=== PATIENT | male | born 1945 | race Caucasian/White ===

== ENCOUNTER 2020-11-05 08:48 | Outpatient (REF) | payer MEDICARE, SELFPAY ==
[2020-11-05 11:12] LABS: Microalbum/Creatinine Ratio Ur 5.6 ug/mg cr
[2020-11-05 11:17] LABS: Alanine Aminotransferase 22 U/L (0-40); Albumin Level 4.2 g/dL (3.5-5.0); Alkaline Phosphatase 120 U/L (39-117); Anion Gap 15 (12-20); Aspartate Amino Transferase 16 U/L (5-37); Bilirubin Total 0.9 mg/dL (0.0-1.0); Blood Urea Nitrogen 29 mg/dL (9-16); Calcium 9.4 mg/dL (8.4-10.2); Carbon Dioxide 28 mmol/L (22-29); Chloride 105 mmol/L (96-108); Cholesterol 132 mg/dL; Estimated Glomerular Filt Rate 46; Glucose Fasting 162 mg/dL (60-99); HDL Cholesterol 30 mg/dL; LDL Cholesterol Calculated 82 mg/dl; Potassium 4.9 mmol/l (3.3-5.1); Sodium 143 mmol/L (135-145); Total Protein 7.1 g/dL (6.5-8.0); Triglycerides 103 mg/dL
[2020-11-05 11:18] LABS: Estimated Average Glucose 171 mg/dL; Hemoglobin A1c % 7.6 %
[2020-11-05 11:40] LABS: TSH reflex Free T4 2.48 mIU/mL (0.32-4.0)
== END 2020-11-05 08:49 | disposition home or self-care (01) ==
LOC: HO.WFDLDS 08:48
PROVIDERS: Visit Provider Family Medicine
DX: Z00.00 Encounter for general adult medical examination without abnormal findings (principal); E11.9 Type 2 diabetes mellitus without complications; I10 Essential (primary) hypertension
CPT/HCPCS: 36415; 80053; 80061; 82043; 83036; 84443

== ENCOUNTER → 2020-12-18 08:06 | Outpatient (BNVA) | payer MEDICARE, SELFPAY | PROVIDERS: PCP Family Medicine; Visit Provider Physician Assistant | DX: Z12.11 Encounter for screening for malignant neoplasm of colon (principal); Z79.01 Long term (current) use of anticoagulants; Z86.010 Personal history of colon polyps | CPT/HCPCS: 99212 ==

== ENCOUNTER 2021-02-03 09:07 | Outpatient (REF) | payer MEDICARE, SELFPAY ==
[2021-02-03 11:50] LABS: Estimated Average Glucose 163 mg/dL; Hemoglobin A1c % 7.3 %
[2021-02-03 12:24] LABS: Alanine Aminotransferase 23 U/L (0-40); Albumin Level 4.2 g/dL (3.5-5.0); Alkaline Phosphatase 127 U/L (39-117); Anion Gap 14 (12-20); Aspartate Amino Transferase 15 U/L (5-37); Blood Urea Nitrogen 25 mg/dL (9-16); Calcium 9.1 mg/dL (8.4-10.2); Carbon Dioxide 27 mmol/L (22-29); Chloride 105 mmol/L (96-108); Cholesterol 124 mg/dL; Estimated Glomerular Filt Rate 57; Glucose Fasting 131 mg/dL (60-99); HDL Cholesterol 34 mg/dL; LDL Cholesterol Calculated 75 mg/dl; Potassium 4.9 mmol/L (3.3-5.1); Sodium 141 mmol/L (135-145); Total Protein 6.9 g/dL (6.5-8.0); Triglycerides 78 mg/dL
== END 2021-02-03 09:08 | disposition home or self-care (01) ==
LOC: HO.WFDLDS 09:07
PROVIDERS: Visit Provider Family Medicine
DX: Z00.00 Encounter for general adult medical examination without abnormal findings (principal); E11.9 Type 2 diabetes mellitus without complications; E78.5 Hyperlipidemia, unspecified; Z12.5 Encounter for screening for malignant neoplasm of prostate
CPT/HCPCS: 36415; 80053; 80061; 83036; 84153

== ENCOUNTER 2021-04-01 13:36 | Outpatient (REF) | payer MEDICARE, SELFPAY ==
--- NOTE | ~2021-04-01 | XR_ITS ---
EXAMINATION: XR CHEST CLINICAL INFORMATION: Atrial fibrillation COMPARISON: None TECHNIQUE: 2 views of the chest were obtained. FINDINGS: The cardiac silhouette is enlarged. Hilar and mediastinal contours are unremarkable. The lungs are clear. No pleural effusion or pneumothorax. There are degenerative changes of the spine. XR/XR chest 2V IMPRESSION: Enlarged cardiac silhouette. No evidence for acute disease in the chest.
[2021-04-01 16:11] LABS: Anion Gap 15 (12-20); Blood Urea Nitrogen 31 mg/dL (9-16); Calcium 9.2 mg/dL (8.4-10.2); Carbon Dioxide 25 mmol/L (22-29); Chloride 104 mmol/L (96-108); Estimated Glomerular Filt Rate 43; Glucose Random 153 mg/dL (60-115); Potassium 4.7 mmol/L (3.3-5.1); Sodium 139 mmol/L (135-145)
[2021-04-01 16:12] LABS: B Type Natriuretic Peptide 120 pg/mL (<100)
== END 2021-04-01 13:37 | disposition home or self-care (01) ==
LOC: HO.XRAY 13:36
PROVIDERS: PCP Family Medicine; Visit Provider Internal Medicine Cardiovascular Disease
DX: I48.91 Unspecified atrial fibrillation (principal); I50.30 Unspecified diastolic (congestive) heart failure; I25.10 Atherosclerotic heart disease of native coronary artery without angina pectoris; Z79.899 Other long term (current) drug therapy
CPT/HCPCS: 36415; 71046; 80048; 83735; 83880; 93005; Q3014

== ENCOUNTER → 2021-04-22 08:12 | Outpatient (REF) | payer MEDICARE, SELFPAY ==
--- NOTE | 2021-04-22 08:16 | CA_ITS ---
Transthoracic Echocardiogram Patient (Last, First, Middle): Km Estevez, Gender: Male Date of : 1945 Age: 75 Procedure Date: 04/22/2021 Procedure Type: Transthoracic Echocardiogram Location: OP Height: 160.02 cm Weight: 88.45 kg BSA: 1.91 m2 Heart Rate: bpm BP: 125 / 80 mmHg Rails Developer: KANDICE Referring MD: Slim Snow MD Symptoms: I48.91 - Unspecified atrial fibrillation Study Quality: Fair ECG Rhythm: Atrial Fibrillation Conclusions: - The left ventricular systolic function is low normal. The visually estimated ejection fraction is between 50-55%. - Mildly increased right ventricular cavity size. - There is mild calcification of the aortic valve. - There is mild mitral valve regurgitation. - There is mild tricuspid valve regurgitation. Findings Left Ventricle Normal left ventricular cavity size. There is mildly increased left ventricular wall thickness. The left ventricular systolic function is low normal. The visually estimated ejection fraction is between 50-55%. Regional wall motion abnormalities can not be excluded due to suboptimal endocardial definition. Diastolic function is indeterminate on the basis of available data. Right Ventricle Mildly increased right ventricular cavity size. There is normal right ventricular systolic function. Atria Both atria are normal in size. Aortic Valve There is a normal trileaflet aortic valve. There is mild calcification of the aortic valve. There is no aortic valve stenosis. There is trace (trivial) aortic valve regurgitation. Mitral Valve The mitral valve appears normal. There is mild mitral valve regurgitation. There is no mitral valve stenosis. Pulmonic Valve The pulmonic valve was not well visualized. Tricuspid Valve Normal tricuspid valve structure. There is mild tricuspid valve regurgitation. The pulmonary artery systolic pressure is normal. Great Vessels The aortic annulus, sinuses of valsalva, and asc aorta are normal in size. Venous The inferior vena cava is normal in size and collapses greater than 50% with inspiration. Pericardium/Pleural There is no evidence of pericardial effusion. Prior Study Comparison No prior study available for comparison. Measurements 2D Linear Measurements IVSd: 1.15 0.6-0.9/0.6-1.0 cm LVIDd: 5.20 3.9-5.3/4.2-5.9 cm LVIDd Index: 2.72 2.4-3.2/2.2-3.1 cm/m2 LVIDs: 3.94 2.0-3.6 cm LVPWd: 1.08 0.7-1.1 cm Ao Root: 2.90 2.1-3.5 cm LA Diam: 4.10 2.7-3.8/3.0-4.0 cm LAIDs Index: 2.15 1.5-2.3 cm/m2 LV Mass: 280.35 67-162/88-224 g LV Mass Index: 146.78 43-95/49-115 g/m2 LVOT Diam: 2.10 3.0+(-)1.3 cm 2D Systolic Function EF 4C: 60.90 >55% EF 2C: 26.00 >55% EF BiP: 48.70 >55% Mitral Valve MV Pk E: 0.73 MV Decel Time: 239.00 E'Lateral: 12.30 E'Medial: 8.16 E/E' Med: 8.90 E/E' Lat: 5.90 PHT: 70.00 MVA PHT: 3.14 Decel Kings: 3.36 Aortic Valve AoV Pk Félix: 0.93 AoV Pk Grad: 3.00 AI Pk Félix: 2.76 AI Kings: 1.69 LVOT LVOT Pk Félix: 0.85 LVOT Mn Félix: 0.57 LVOT VTI: 0.15 LVOT Pk Grad: 3.00 LVOT Mn Grad: 2.00 LVOT Diam: 2.10 LVOT Area: 3.46 Diastolic Function MV Pk E: 0.73 E'Medial: 8.16 E/E' Med: 8.90 E' Laterial: 12.30 E/E' Lat: 5.90 Tricuspid Valve TR Pk Félix: 2.57 TR Pk Grad: 26.00 RA Press: 3.00 RVSP: 29.00 Great Vessels Aorta Ao Root-2D: 2.90 2.0-3.7 cm Ao Asc: 3.60 2.1-3.4 cm Updated in Other Vendor System with Status of Final Tk Zuniga MD electronically signed on 04/23/2021 12:38:14 PM with status of Final
== END ==
LOC: HO.CARD 08:12
PROVIDERS: Visit Provider Internal Medicine Cardiovascular Disease
DX: I48.91 Unspecified atrial fibrillation (principal)
CPT/HCPCS: 93306

== ENCOUNTER → 2021-04-29 10:46 | Outpatient (BNVA) | payer MEDICARE, SELFPAY | PROVIDERS: PCP Family Medicine; Referring Provider Family Medicine; Visit Provider Internal Medicine Cardiovascular Disease | DX: I48.91 Unspecified atrial fibrillation (principal); R06.02 Shortness of breath; Z79.899 Other long term (current) drug therapy | CPT/HCPCS: 99212 ==

== ENCOUNTER 2021-05-04 09:38 | Outpatient (REF) | payer MEDICARE, SELFPAY ==
[2021-05-04 10:58] LABS: Alanine Aminotransferase 17 U/L (0-40); Albumin Level 4.2 g/dL (3.5-5.0); Alkaline Phosphatase 129 U/L (39-117); Anion Gap 15 (12-20); Aspartate Amino Transferase 16 U/L (5-37); Blood Urea Nitrogen 29 mg/dL (9-16); Calcium 9.6 mg/dL (8.4-10.2); Carbon Dioxide 28 mmol/L (22-29); Chloride 103 mmol/L (96-108); Cholesterol 138 mg/dL; Estimated Glomerular Filt Rate 45; Glucose Fasting 187 mg/dL (60-99); HDL Cholesterol 32 mg/dL; LDL Cholesterol Calculated 79 mg/dl; Potassium 4.8 mmol/L (3.3-5.1); Sodium 141 mmol/L (135-145); Total Protein 7.2 g/dL (6.5-8.0); Triglycerides 136 mg/dL
[2021-05-04 11:41] LABS: Estimated Average Glucose 177 mg/dL; Hemoglobin A1c % 7.8 %
== END 2021-05-04 09:39 | disposition home or self-care (01) ==
LOC: HO.WFDLDS 09:38
PROVIDERS: Visit Provider Family Medicine
DX: Z00.00 Encounter for general adult medical examination without abnormal findings (principal); E78.5 Hyperlipidemia, unspecified; E11.9 Type 2 diabetes mellitus without complications
CPT/HCPCS: 36415; 80053; 80061; 83036

== ENCOUNTER 2021-05-06 11:47 | Day surgery (SDC) | payer MEDICARE, SELFPAY ==
--- NOTE | 2021-05-05 12:30 | P.CONAN_ITS ---
Documented by User: Nubia Richardsonney 05/05/21 12:37 HPI - Anesthesia Eval Consult details Narrative: 75yo M for Cardioversion Eliquis for afib/DVT PMFSH Active Problems Active Problems: All Active Problems (Updated 04/29/21 @ 11:36 by Slim Snow MD) SOB (shortness of breath) on exertion (Acute) Afib (Acute) History of colonic polyps (Acute) long-term current use of anticoagulant (Acute) Adult general medical exam (Acute) Screening for colon cancer (Acute) DVT (deep venous thrombosis) (Acute) Screening for prostate cancer (Acute) Hyperlipidemia (Acute) CAD (coronary artery disease) (Acute) Laboratory examination ordered as part of a routine general medical examination (Acute) Essential hypertension (Acute) Diabetes type 2, controlled (Acute) Past Medical History Medical History Afib CAD (coronary artery disease) Diabetes type 2, controlled DVT (deep venous thrombosis) Essential hypertension History of colonic polyps 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 Mother No problems noted. Surgical History Surgical History History of cardioversion Hx of colonoscopy Status post phlebectomy (~2018) Social History Social History Household Members: Spouse Alcohol intake: current Alcohol intake frequency: holidays/special occasions only Patient Tobacco Use Status: Never used Tobacco Use of substances other than those prescribed or required for medical reasons: No Have you been hit, kicked, punched, or otherwise hurt by someone within the past year? If so, by whom?: No Are you DNR?: No Advance Directives: No Advance Directives Information Provided: Yes Recently lost weight without trying: No Current occupational status: retired Meds Allergies Allergy/AdvReac Type Severity Reaction Status Date / Time No Known Allergies Allergy Verified 02/12/21 09:24 Exam Exam Date and Time: May 05, 2021 1230 Pertinent Lab Results Pertinent Lab Results: Laboratory Tests 05/04/21 09:45 Sodium 141 Potassium 4.8 Chloride 103 Carbon Dioxide 28 BUN 29 H Creatinine 1.51 H Narrative Narrative: EKG 03/2021 EKG shows atrial fibrillation with left axis deviation with low-voltage QRS throughout the EKG with nonspecific lateral ST T wave changes. ECHO 04/2021 Conclusions: - The left ventricular systolic function is low normal. The visually estimated ejection fraction is between 50-55%. - Mildly increased right ventricular cavity size. - There is mild calcification of the aortic valve. - There is mild mitral valve regurgitation. - There is mild tricuspid valve regurgitation. 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 Mother No problems noted. Surgical History Surgical History History of cardioversion Hx of colonoscopy Status post phlebectomy (~2018) Social History Social History Household Members: Spouse Alcohol intake: current Alcohol intake frequency: holidays/special occasions only Patient Tobacco Use Status: Never used Tobacco Use of substances other than those prescribed or required for medical reasons: No Have you been hit, kicked, punched, or otherwise hurt by someone within the past year? If so, by whom?: No Are you DNR?: No Advance Directives: No Advance Directives Information Provided: Yes Recently lost weight without trying: No Current occupational status: retired Meds Allergies Allergy/AdvReac Type Severity Reaction Status Date / Time No Known Allergies Allergy Verified 02/12/21 09:24 Exam Airway TM Dist: >3cm Neck ROM: Full Heart: Irregular Lungs: CTA
[2021-05-06 11:50] VITALS: BMI 38.2
[2021-05-06 12:01] VITALS: BP 131/77; PULSE 81; RESP 18; TEMP 36.1; O2SAT 96
[2021-05-06 12:03] LABS: Glucose, Whole Blood 195 mg/dL (60-115)
[2021-05-06] MEDS: Lactated Ringers 1,000 ML 50 ML IVCONT (12:21)
--- NOTE | 2021-05-06 13:31 | MHC.SHP ---
Pre-Procedural Eval Section A Date of Service: 05/06/21 The patient is an INPATIENT: No Changes since office visit: Yes Patient answered all questions; No Cold of Flu in the past 2 weeks, No New Medical Problems and No Changes in Medication The History & Physical has been completed within 30 days and I have reviewed it.: Yes Section B Chief Complaint: afib Allergies: Allergies Allergy/AdvReac Type Severity Reaction Status Date / Time No Known Allergies Allergy Verified 02/12/21 09:24 Plan I have reviewed the history and physical and performed a pertinent physical examination on my patient. No changes have occurred unless specified.
--- NOTE | 2021-05-06 13:32 | ECG_ITS ---
Test Reason : CARDIOVERSION Blood Pressure : / mmHG Vent. Rate : 043 BPM Atrial Rate : 043 BPM P-R Int : 272 ms QRS Dur : 088 ms QT Int : 476 ms P-R-T Axes : 032 -39 -65 degrees QTc Int : 402 ms Marked sinus bradycardia with 1st degree A-V block Left axis deviation Low voltage QRS Inferior infarct , age undetermined Cannot rule out Anteroseptal infarct , age undetermined Abnormal ECG No previous ECGs available Referred By: Slim Snow Electronically Signed By:SLIM SNOW MD
--- NOTE | 2021-05-06 13:43 | HO.CARDIVERS ---
Cardioversion Procedure Note Cardioversion Date of Procedure: 05/06/2021 Ordering Provider: Myself Performing Provider: Myself Indication for Procedure: Persistent symptomatic atrial fibrillation Pre-Op Diagnosis: Atrial fibrillation Post-Op Diagnosis: Sinus rhythm Performed with Transesophageal Echo: No History: See my office note Consent: Verbal and Written consent was obtained from the patient before starting after confirming oral anticoagulation. The patient was made aware of the risk of synchronized cardioversion including base, benefits, alternatives and 2nd opinion. Procedure: After consent obtained, cardioversion pads were attached in AP configuration and the patient was sedated by the anesthesia team. Once adequate sedation achieved, patient was delivered 200 joules of biphasic synchronized energy in AP configuration Complications: None Impression: Successful conversion to sinus rhythm Recommendations: 1. Twelve lead EKG 2. Continue uninterrupted oral anticoagulation 3. Discontinue Cardizem therapy 4. Holter monitor in 2 weeks followed by office visit.
[2021-05-06 13:50] VITALS: BP 103/63; PULSE 49; RESP 16; TEMP 36.7; O2SAT 99
[2021-05-06 14:05] VITALS: BP 115/74; PULSE 43; RESP 18; O2SAT 96
[2021-05-06 14:22] VITALS: BP 128/80; PULSE 43; RESP 18; TEMP 36.3; O2SAT 96
== END 2021-05-06 15:00 | disposition home or self-care (01) ==
PROVIDERS: PCP Family Medicine; Visit Provider Internal Medicine Cardiovascular Disease
PROC: 5A2204Z Restoration of Cardiac Rhythm, Single (ICD-10-PCS; principal; 2021-05-06 13:00)
DX: I48.19 Other persistent atrial fibrillation (principal); R06.02 Shortness of breath; R60.9 Edema, unspecified; E11.9 Type 2 diabetes mellitus without complications; I25.10 Atherosclerotic heart disease of native coronary artery without angina pectoris; I10 Essential (primary) hypertension; Z79.01 Long term (current) use of anticoagulants; Z79.84 Long term (current) use of oral hypoglycemic drugs; Z79.899 Other long term (current) drug therapy
CPT/HCPCS: 82947; 92960; 93005

== ENCOUNTER → 2021-05-11 08:30 | Outpatient (REF) | payer MEDICARE, SELFPAY ==
--- NOTE | ~2021-05-11 | NM_ITS ---
Myocardial perfusion study Indication: Shortness of breath, atrial fibrillation to evaluate for myocardial ischemia Technique: The patient was brought in for a Lexiscan perfusion study on 05/11/2021. Patient performed low-level exercise and was injected 0.4 mg of Lexiscan intravenously. Within a minute of injection, 35 mCi of sestamibi was given intravenously. Images were obtained using the SPECT gamma camera interlaced with the gating device. Images were obtained in supine position. Resting perfusion study was performed on 05/12/2021. Patient was administered 35 mCi of sestamibi intravenously at rest. Images were then obtained in supine position. Images obtained with and without CT attenuation. Total DLP 106 mGy-cm. Images were processed with the software and compared side to side in short axis, horizontal long axis and vertical long axis views. Findings: The stress perfusion study showed nonattenuated images show absent uptake in the apex of the LV myocardium. Attenuation corrected images absent uptake at the apex of the LV myocardium.. The gated study shows reduced LV systolic function with calculated LVEF of 33%. LV cavity is mildly to moderately dilated size. The gated study shows diffusely reduced wall thickening and contraction of all segments, . Resting study shows no change in perfusion pattern compared to stress perfusion study. Gating at rest reveals reduced wall motion with ejection fraction at 28%. The findings are consistent with no reversible ischemia, fixed apical defect consistent with transmural infarct. NM/NM monserrat perf SPECT rest & str Impression: 1. Myocardial perfusion imaging study shows apical transmural infarct with no ischemia 2. Gated LVEF is 33%. Correlate with echocardiogram 3. Transient ischemic dilatation not present but LV cavity is dilated EKG is nondiagnostic for ischemia
--- NOTE | 2021-05-11 08:35 | CA_ITS ---
Acquisition Time: 2021-05-11 08:52:20 Total Exercise Time: 00:02:00 Test Indications: SOB Medications: ELIQUIS CARVEDILOL TIMKY Protocol: LEXISCAN Max HR: 126 BPM 86% of Pred: 145 BPM Max BP: 120/078 mmHG Max Work Load: 1.0 METS Pharmacological stress test with Lexiscan injection, while sitting and kicking his legs, without anginal symptoms, with afib throughout test, with normotensive response to injection, with nondiagnostic EKG for ischemia. Nuclear images pending. Test reviewed with Dr Zuniga. Referred By: Slim Snow Overread By: JOSE M WEINER
== END ==
LOC: HO.CARD 08:30
PROVIDERS: Visit Provider Internal Medicine Cardiovascular Disease
DX: R06.02 Shortness of breath (principal)
CPT/HCPCS: 78452; 93017; A9500; J0280; J2785

== ENCOUNTER → 2021-05-18 13:47 | Outpatient (BNVA) | payer MEDICARE, SELFPAY | PROVIDERS: PCP Family Medicine; Visit Provider Nurse Practitioner Family | DX: Z13.89 Encounter for screening for other disorder (principal) | CPT/HCPCS: Q3014 ==

== ENCOUNTER 2021-06-10 11:45 | Day surgery (SDC) | payer MEDICARE, SELFPAY ==
[2021-06-03 15:58] VITALS: BMI 38.0
--- NOTE | 2021-06-09 10:54 | HO.ANESPROP2 ---
Documented by User: Nubia Cárdenas NP 06/09/21 10:58 HPI - Anesthesia Eval Consult details Narrative: 75yo M for Cardioversion Eliquis for afib/DVT s/p Cardioversion 04/2021 with [place] [facility] Active Problems Active Problems: All Active Problems (Updated 05/18/21 @ 14:09 by Meghan Orellana ANGULAR JS DEVELOPER-C) Laboratory examination ordered as part of a routine general medical examination (Acute) Screening for prostate cancer (Acute) Screening for colon cancer (Acute) Adult general medical exam (Acute) SOB (shortness of breath) on exertion (Acute) Abnormal nuclear stress test (Acute) Essential hypertension (Acute) CAD (coronary artery disease) (Acute) Afib (Acute) History of colonic polyps (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 Mother No problems noted. Surgical History Surgical History History of cardioversion Hx of colonoscopy Status post phlebectomy (~2019) Social History Social History Household Members: Spouse Are you a primary rn coronary care unit to a significant other at home: No Do you presently have visiting nurse or other home services: No Alcohol intake: current Alcohol intake frequency: holidays/special occasions only Patient Tobacco Use Status: Never used Tobacco Use of substances other than those prescribed or required for medical reasons: No Have you been hit, kicked, punched, or otherwise hurt by someone within the past year? If so, by whom?: No Are you DNR?: No Advance Directives: No Advance Directives Information Provided: No Advance Directives on File: No Recently lost weight without trying: No Eating poorly because of decreased appetite: No Nutrition Risks: No Nutritional Risk Current occupational status: retired Meds Allergies Allergy/AdvReac Type Severity Reaction Status Date / Time No Known Allergies Allergy Verified 06/03/21 15:49 Exam Exam Date and Time: June 09, 2021 1054 Height,Weight and Vital Signs: Height 5 ft 4 in Weight 100.698 kg Pertinent Lab Results Pertinent Lab Results: Laboratory Tests 05/04/21 09:45 Sodium 141 Potassium 4.8 Chloride 103 Carbon Dioxide 28 BUN 29 H Creatinine 1.51 H Narrative Narrative: EKG 04/2021 Vent. Rate : 043 BPM ? ? Atrial Rate : 043 BPM ?? P-R Int : 272 ms? QRS Dur : 088 ms ? ? QT Int : 476 ms ? ? ? P-R-T Axes : 032 -39 -65 degrees ?? QTc Int : 402 ms ? Marked sinus bradycardia with 1st degree A-V block Left axis deviation Low voltage QRS Inferior infarct , age undetermined Cannot rule out Anteroseptal infarct , age undetermined Abnormal ECG NM monserrat perf SPECT rest & str 04/2021 Impression: ? 1.? Myocardial perfusion imaging study shows apical transmural infarct with no ischemia 2.? Gated LVEF is 33%. Correlate with echocardiogram 3. Transient ischemic dilatation not present but LV cavity is dilated ? EKG is nondiagnostic for ischemia ECHO 04/2021 Conclusions: - The left ventricular systolic function is low normal.? The? ? visually estimated ejection fraction is between 50-55%. ? - Mildly increased right ventricular cavity size. ? - There is mild calcification of the aortic valve.? - There is mild mitral valve regurgitation. ? - There is mild tricuspid valve regurgitation. ? Assessment and Plan Assessment Anesthesia Assessment: Chart Reviewed Documented by User: Shelia Villalta MD 06/10/21 12:47 [facility] Past Medical History Medical History (Updated 06/10/21 @ 12:31 by Shelia Villalta MD) Afib CAD (coronary artery disease) Diabetes type 2, controlled DVT (deep venous thrombosis) Essential hypertension History of colonic polyps Hyperlipidemia jail current use of anticoagulant Osteoarthritis of right knee Family History Family History Father No problems noted. Mother No problems noted. Family history of problems with anesthesia: No Surgical History Surgical History History of cardioversion Hx of colonoscopy Status post phlebectomy (~2019) History of Problems with Anesthesia: No Social History Social History Household Members: Spouse Are you a primary rn coronary care unit to a significant other at home: No Do you presently have visiting nurse or other home services: No Alcohol intake: current Alcohol intake frequency: holidays/special occasions only Patient Tobacco Use Status: Never used Tobacco Use of substances other than those prescribed or required for medical reasons: No Have you been hit, kicked, punched, or otherwise hurt by someone within the past year? If so, by whom?: No Are you DNR?: No Advance Directives: No Advance Directives Information Provided: No Advance Directives on File: No Recently lost weight without trying: No Eating poorly because of decreased appetite: No Nutrition Risks: No Nutritional Risk Current occupational status: retired Meds Allergies Allergy/AdvReac Type Severity Reaction Status Date / Time No Known Allergies Allergy Verified 06/03/21 15:49 Exam Height,Weight and Vital Signs: Height 5 ft 4 in Weight 100.698 kg Vital Signs Temp Pulse Resp BP Pulse Ox 97.9 F 88 16 142/97 H 98 06/10/21 12:09 06/10/21 12:09 06/10/21 12:09 06/10/21 12:09 06/10/21 12:09 Pertinent Lab Results Pertinent Lab Results: Laboratory Tests 05/04/21 09:45 Sodium 141 Potassium 4.8 Chloride 103 Carbon Dioxide 28 BUN 29 H Creatinine 1.51 H Lab Results 06/10/21 Range/Units 12:08 POC Glucose 156 H (60-115) mg/dL Airway Mallampati Class: III TM Dist: >3cm Neck ROM: Full Heart: Irregularly irregular Lungs: CTAB Assessment and Plan Assessment Anesthesia Assessment: Anesthesia Plan Discussed Final Anesthetic Review Family History of Problems with Anesthesia: No History of Problems with Anesthesia: No NPO: Yes ASA Class: III Final Preanesthetic Review: No Changes in Pt Med Stat, Meds/Allgs Chart Reviewed, Consent Obtained/Reviewed and Anes Risks/Benef Reviewed Patient Risk: Intermediate Procedure Risk: Intermediate Assessment/Block/Sedation in SS: Assess/Block/Sedation-SS Anesthetic Plan Anesthetic Plan: GA Disposition: Standard PACU
[2021-06-10 12:09] VITALS: BP 142/97; PULSE 88; RESP 16; TEMP 36.6; O2SAT 98
[2021-06-10 12:12] LABS: Glucose, Whole Blood 156 mg/dL (60-115)
[2021-06-10] MEDS: Lactated Ringers 1,000 ML 50 ML IVCONT (12:21)
--- NOTE | 2021-06-10 12:28 | MHC.SHP ---
Pre-Procedural Eval Section A Date of Service: 06/10/21 The patient is an INPATIENT: No Changes since office visit: Yes Patient answered all questions; No Cold of Flu in the past 2 weeks, No New Medical Problems and No Changes in Medication The History & Physical has been completed within 30 days and I have reviewed it.: Yes Section B Chief Complaint: Unspecified A fib Allergies: Allergies Allergy/AdvReac Type Severity Reaction Status Date / Time No Known Allergies Allergy Verified 06/03/21 15:49 Plan I have reviewed the history and physical and performed a pertinent physical examination on my patient. No changes have occurred unless specified.
--- NOTE | 2021-06-10 14:54 | ECG_ITS ---
Test Reason : POST CARDIVERSION Blood Pressure : / mmHG Vent. Rate : 048 BPM Atrial Rate : 048 BPM P-R Int : 208 ms QRS Dur : 092 ms QT Int : 464 ms P-R-T Axes : 038 -35 022 degrees QTc Int : 414 ms Sinus bradycardia Left axis deviation Low voltage QRS Septal infarct (cited on or before 06-MAY-2021) Possible Lateral infarct (cited on or before 06-MAY-2021) Abnormal ECG When compared with ECG of 06-MAY-2021 13:56, DE interval has decreased Referred By: Slim Snow Electronically Signed By:ELIANA BAIN
[2021-06-10 14:56] VITALS: BP 94/49; PULSE 49; RESP 20; TEMP 36.4; O2SAT 98
[2021-06-10 15:01] VITALS: BP 101/58; PULSE 48; RESP 18; O2SAT 96
--- NOTE | 2021-06-10 15:01 | HO.CARDIVERS ---
Cardioversion Procedure Note Cardioversion Date of Procedure: 06/10/2021 Ordering Provider: Myself Performing Provider: Myself Indication for Procedure: Persistent symptomatic atrial fibrillation Pre-Op Diagnosis: Same Post-Op Diagnosis: Sinus rhythm Performed with Transesophageal Echo: No History: See H&P for details Consent: Verbal and Written consent was obtained from the patient before starting and confirming oral anticoagulation as well as amiodarone use The patient was made aware of the risk of synchronized cardioversion including risks, benefits, alternatives 2nd opinion procedure Procedure: After consent obtained, cardioversion pads were attached in AP configuration and the patient was sedated by the anesthesia team. Once adequate sedation achieved, patient was delivered 200 joules of biphasic synchronized energy in anteroposterior configuration. Complications: None Impression: Successful conversion to sinus rhythm Recommendations: 1. 12 lead EKG 2. Reduce amiodarone to 200 mg daily 3. Continue full oral anticoagulation 4. Follow-up in the office after Holter monitor
[2021-06-10 15:06] VITALS: BP 103/62; PULSE 45; RESP 18; O2SAT 97
[2021-06-10 15:11] VITALS: BP 101/66; PULSE 47; RESP 18; O2SAT 97
[2021-06-10 15:26] VITALS: BP 105/72; PULSE 46; RESP 18; O2SAT 97
== END 2021-06-10 16:00 | disposition home or self-care (01) ==
PROVIDERS: PCP Family Medicine; Visit Provider Internal Medicine Cardiovascular Disease
PROC: 5A2204Z Restoration of Cardiac Rhythm, Single (ICD-10-PCS; principal; 2021-06-10 13:30)
DX: R94.39 Abnormal result of other cardiovascular function study (principal); I48.19 Other persistent atrial fibrillation; I25.10 Atherosclerotic heart disease of native coronary artery without angina pectoris; R53.83 Other fatigue; I10 Essential (primary) hypertension; Z79.01 Long term (current) use of anticoagulants; I82.409 Acute embolism and thrombosis of unspecified deep veins of unspecified lower extremity; E11.9 Type 2 diabetes mellitus without complications; Z79.84 Long term (current) use of oral hypoglycemic drugs; Z79.899 Other long term (current) drug therapy
CPT/HCPCS: 82947; 92960; 93005

== ENCOUNTER → 2021-06-24 11:20 | Outpatient (REF) | payer MEDICARE, SELFPAY ==
--- NOTE | 2021-06-24 11:23 | HM_ITS ---
Basic rhythm is atrial fibrillation. Average heart rate is 80 beats per minute with well controlled heart rate No significant pauses noted Rare PVCs noted. No patient reported symptoms MTDD
--- NOTE | 2021-06-24 11:49 | ECG_ITS ---
Test Reason : UNSPEC. AFIB Blood Pressure : / mmHG Vent. Rate : 101 BPM Atrial Rate : 000 BPM P-R Int : 000 ms QRS Dur : 074 ms QT Int : 278 ms P-R-T Axes : 000 -36 -02 degrees QTc Int : 360 ms Atrial fibrillation with rapid ventricular response Left axis deviation Low voltage QRS Septal infarct (cited on or before 06-MAY-2021) Inferior infarct , age undetermined Abnormal ECG When compared with ECG of 10-JUN-2021 14:58, Atrial fibrillation has replaced Sinus rhythm Vent. rate has increased BY 53 BPM Borderline criteria for Lateral infarct are no longer Present Inferior infarct is now Present Referred By: Slim Snow Electronically Signed By:ELIANA BAIN
== END ==
LOC: HO.CARD 11:20
PROVIDERS: Visit Provider Internal Medicine Cardiovascular Disease
DX: I48.0 Paroxysmal atrial fibrillation (principal)
CPT/HCPCS: 93005; 93242

== ENCOUNTER 2021-08-03 13:43 | Outpatient (REF) | payer MEDICARE, SELFPAY ==
[2021-08-03 15:05] LABS: Hematocrit 48.8 % (42-52); Hemoglobin 16.7 g/dl (14.0-18.0); Mean Corpuscular HGB Conc 34.2 g/dl (31.0-36.0); Mean Corpuscular Hemoglobin 30.1 pg (27.0-33.0); Mean Corpuscular Volume 88.1 fL (80-98); Mean Platelet Volume 10.2 fL (9.4-12.4); Platelet Count 242 X10*3/uL (160-400); Red Blood Count 5.54 X10*6/uL (4.60-5.80); Red Cell Distribution Width 14.2 % (11.0-16.0); White Blood Count 8.1 X10*3/uL (4.8-10.8)
[2021-08-03 15:30] LABS: Anion Gap 14 (12-20); Blood Urea Nitrogen 24 mg/dL (9-16); Calcium 9.5 mg/dL (8.4-10.2); Carbon Dioxide 28 mmol/L (22-29); Chloride 105 mmol/L (96-108); Estimated Glomerular Filt Rate 46; Glucose Random 124 mg/dL (60-115); Potassium 4.8 mmol/L (3.3-5.1); Sodium 142 mmol/L (135-145)
[2021-08-03 15:34] LABS: INTERNATIONAL NORM RATIO 1.2 (0.9-1.1); Prothrombin Time 13.6 SEC (9.9-13.0)
[2021-08-03 16:04] LABS: Digoxin < 0.3 ng/mL (0.8-2.0)
== END 2021-08-03 13:44 | disposition home or self-care (01) ==
LOC: HO.LAB 13:43
PROVIDERS: PCP Family Medicine; Referring Provider Family Medicine; Visit Provider Internal Medicine Cardiovascular Disease
DX: R06.02 Shortness of breath (principal); I48.20 Chronic atrial fibrillation, unspecified; I50.9 Heart failure, unspecified; Z79.899 Other long term (current) drug therapy
CPT/HCPCS: 36415; 80048; 80162; 85027; 85610; 99212

== ENCOUNTER → 2021-09-14 10:17 | Outpatient (BNVA) | payer MEDICARE, SELFPAY | PROVIDERS: PCP Family Medicine; Referring Provider Family Medicine; Visit Provider Internal Medicine Cardiovascular Disease | DX: I25.10 Atherosclerotic heart disease of native coronary artery without angina pectoris (principal); I50.9 Heart failure, unspecified; I48.91 Unspecified atrial fibrillation | CPT/HCPCS: 99212 ==

== ENCOUNTER 2021-09-22 09:16 | Outpatient (REF) | payer MEDICARE, SELFPAY ==
[2021-09-22 11:52] LABS: Estimated Average Glucose 180 mg/dL; Hemoglobin A1c % 7.9 %
== END 2021-09-22 09:17 | disposition home or self-care (01) ==
LOC: HO.WFDLDS 09:16
PROVIDERS: Visit Provider Family Medicine
DX: R73.01 Impaired fasting glucose (principal)
CPT/HCPCS: 36415; 83036

== ENCOUNTER → 2021-10-26 08:19 | Outpatient (REF) | payer MEDICARE, SELFPAY ==
--- NOTE | 2021-10-26 08:23 | CA_ITS ---
Transthoracic Echocardiogram Patient (Last, First, Middle): Km Estevez, Gender: Male Date of : 1945 Age: 76 Procedure Date: 10/26/2021 Procedure Type: Transthoracic Echocardiogram Location: OP Height: 162.56 cm Weight: 83.92 kg BSA: 1.89 m2 Heart Rate: bpm BP: 137 / 70 mmHg Pen Tender: LOULOU Referring MD: Slim Snow MD Symptoms: I42.9 - Cardiomyopathy, unspecified Study Quality: Technically Difficult/contrast ECG Rhythm: Atrial Fibrillation Conclusions: - The left ventricular systolic function is low normal. The calculated ejection fraction is 55% by biplane method. - The apex segment is akinetic. Findings Procedure Information Contrast agent, definity, is being given per protocol without apparent complications. Left Ventricle Normal left ventricular cavity size. There is mildly increased left ventricular wall thickness. The left ventricular systolic function is low normal. The calculated ejection fraction is 55% by biplane method. Wall Motion Rest Echo Findings The apex segment is akinetic. Right Ventricle Mildly increased right ventricular cavity size. There is normal right ventricular systolic function. Prior Study Comparison No significant change compared to prior study dated: 04/22/2021. On review of prior images, wall motion abnormality noted, but that was a non-contrast study. Current study is with contrast. Measurements 2D Linear Measurements IVSd: 1.16 0.6-0.9/0.6-1.0 cm LVIDd: 4.96 3.9-5.3/4.2-5.9 cm LVIDd Index: 2.62 2.4-3.2/2.2-3.1 cm/m2 LVIDs: 3.88 2.0-3.6 cm LVPWd: 1.19 0.7-1.1 cm LV Mass: 279.34 67-162/88-224 g LV Mass Index: 147.80 43-95/49-115 g/m2 2D Systolic Function EF 4C: 53.80 >55% EF 2C: 54.30 >55% EF BiP: 54.50 >55% Mitral Valve MV Pk E: 0.65 MV Decel Time: 180.00 E'Lateral: 12.10 E'Medial: 8.05 E/E' Med: 8.10 E/E' Lat: 5.40 PHT: 53.00 MVA PHT: 4.15 Decel Early: 3.61 Diastolic Function MV Pk E: 0.65 E'Medial: 8.05 E/E' Med: 8.10 E' Laterial: 12.10 E/E' Lat: 5.40 Right Ventricle TAPSE (mm): 19.30 TVS' Félix: 12.20 Updated in Other Vendor System with Status of Final Tk Zuniga MD electronically signed on 10/27/2021 1:39:22 PM with status of Final
== END ==
LOC: HO.CARD 08:19
PROVIDERS: Visit Provider Internal Medicine Cardiovascular Disease
DX: I42.9 Cardiomyopathy, unspecified (principal)
CPT/HCPCS: 93308; Q9957

== ENCOUNTER 2021-11-26 10:39 | Outpatient (REF) | payer MEDICARE, SELFPAY ==
[2021-11-26 14:02] LABS: Cholesterol 120 mg/dL; HDL Cholesterol 26 mg/dL; LDL Cholesterol Calculated 73 mg/dl; Triglycerides 107 mg/dL
== END 2021-11-26 10:40 | disposition home or self-care (01) ==
LOC: HO.WFDLDS 10:39
PROVIDERS: Visit Provider Internal Medicine Cardiovascular Disease
DX: I25.10 Atherosclerotic heart disease of native coronary artery without angina pectoris (principal)
CPT/HCPCS: 36415; 80061

== ENCOUNTER → 2021-12-10 10:00 | Outpatient (BNVA) | payer MEDICARE, SELFPAY | PROVIDERS: PCP Family Medicine; Referring Provider Family Medicine; Visit Provider Internal Medicine Cardiovascular Disease | DX: I25.10 Atherosclerotic heart disease of native coronary artery without angina pectoris (principal); I50.9 Heart failure, unspecified; I48.91 Unspecified atrial fibrillation | CPT/HCPCS: 99212 ==

== ENCOUNTER 2021-12-14 08:27 | Outpatient (REF) | payer MEDICARE, SELFPAY ==
[2021-12-14 12:11] LABS: B Type Natriuretic Peptide 98 pg/mL (<100)
[2021-12-14 12:13] LABS: Anion Gap 15 (12-20); Blood Urea Nitrogen 23 mg/dL (9-16); Calcium 9.5 mg/dL (8.4-10.2); Carbon Dioxide 24 mmol/L (22-29); Chloride 107 mmol/L (96-108); Estimated Glomerular Filt Rate 51; Glucose Random 178 mg/dL (60-115); Potassium 4.5 mmol/L (3.3-5.1); Sodium 141 mmol/L (135-145)
[2021-12-14 12:59] LABS: Digoxin 0.5 ng/mL (0.8-2.0)
== END 2021-12-14 08:28 | disposition home or self-care (01) ==
LOC: HO.WFDLDS 08:27
PROVIDERS: Visit Provider Internal Medicine Cardiovascular Disease
DX: I48.20 Chronic atrial fibrillation, unspecified (principal); I50.9 Heart failure, unspecified; Z79.899 Other long term (current) drug therapy
CPT/HCPCS: 36415; 80048; 80162; 83880

== ENCOUNTER 2022-03-01 08:48 | Outpatient (REF) | payer MEDICARE, SELFPAY | END 2022-03-01 08:49 | disposition home or self-care (01) | LOC: HO.WFDLDS 08:48 | PROVIDERS: Visit Provider Internal Medicine Cardiovascular Disease | DX: Z13.89 Encounter for screening for other disorder (principal) ==

== ENCOUNTER 2022-03-03 08:23 | Outpatient (REF) | payer MEDICARE, SELFPAY ==
[2022-03-03 12:04] LABS: Cholesterol 100 mg/dL; HDL Cholesterol 23 mg/dL; LDL Cholesterol Calculated 53 mg/dl; Triglycerides 121 mg/dL
== END 2022-03-03 08:24 | disposition home or self-care (01) ==
LOC: HO.WFDLDS 08:23
PROVIDERS: Visit Provider Internal Medicine Cardiovascular Disease
DX: E78.5 Hyperlipidemia, unspecified (principal)
CPT/HCPCS: 36415; 80061

== ENCOUNTER → 2022-03-09 09:32 | Outpatient (BNVA) | payer MEDICARE, SELFPAY | PROVIDERS: PCP Family Medicine; Referring Provider Family Medicine; Visit Provider Internal Medicine Cardiovascular Disease | DX: I25.10 Atherosclerotic heart disease of native coronary artery without angina pectoris (principal); I50.9 Heart failure, unspecified | CPT/HCPCS: 93005; 99212 ==

== ENCOUNTER 2022-03-10 08:58 | Outpatient (REF) | payer MEDICARE, SELFPAY ==
[2022-03-10 12:08] LABS: Anion Gap 13 (12-20); Blood Urea Nitrogen 29 mg/dL (9-16); Calcium 9.2 mg/dL (8.4-10.2); Carbon Dioxide 26 mmol/L (22-29); Chloride 106 mmol/L (96-108); Estimated Glomerular Filt Rate 52; Glucose Random 168 mg/dL (60-115); Potassium 4.7 mmol/L (3.3-5.1); Sodium 140 mmol/L (135-145)
[2022-03-10 13:19] LABS: Digoxin 0.6 ng/mL (0.8-2.0)
== END 2022-03-10 08:59 | disposition home or self-care (01) ==
LOC: HO.WFDLDS 08:58
PROVIDERS: Visit Provider Internal Medicine Cardiovascular Disease
DX: I48.20 Chronic atrial fibrillation, unspecified (principal); Z79.899 Other long term (current) drug therapy
CPT/HCPCS: 36415; 80048; 80162

== ENCOUNTER 2022-06-25 08:31 | Outpatient (REF) | payer MEDICARE, SELFPAY ==
[2022-06-25 12:28] LABS: Anion Gap 15 (12-20); Blood Urea Nitrogen 29 mg/dL (9-16); Calcium 8.6 mg/dL (8.4-10.2); Carbon Dioxide 24 mmol/L (22-29); Chloride 105 mmol/L (96-108); Estimated Glomerular Filt Rate 46; Glucose Fasting 188 mg/dL (60-99); Potassium 4.7 mmol/L (3.3-5.1); Sodium 139 mmol/L (135-145)
[2022-06-25 12:33] LABS: Prostate Specific Antigen Scr 0.13 ng/mL (<0.05-4.0)
== END 2022-06-25 08:32 | disposition home or self-care (01) ==
LOC: HO.WFDLDS 08:31
PROVIDERS: Visit Provider Family Medicine
DX: Z12.5 Encounter for screening for malignant neoplasm of prostate (principal); E11.9 Type 2 diabetes mellitus without complications
CPT/HCPCS: 36415; 80048; 84153

== ENCOUNTER 2022-08-05 11:56 | Outpatient (REF) | payer MEDICARE, SELFPAY ==
[2022-08-05 12:51] LABS: Influenza A PCR NEGATIVE (Negative); Influenza B PCR NEGATIVE (Negative); Resp Syncy Virus RNA Qual PCR POSITIVE (Negative); SARS COV2 PCR INHOUSE NEGATIVE (Negative)
== END 2022-08-05 11:57 | disposition home or self-care (01) ==
LOC: HO.LNP 11:56
PROVIDERS: Visit Provider Nurse Practitioner Family
DX: J06.9 Acute upper respiratory infection, unspecified (principal); Z20.822 Contact with and (suspected) exposure to COVID-19
CPT/HCPCS: 0241U

== ENCOUNTER 2022-09-01 10:06 | Outpatient (REF) | payer MEDICARE, SELFPAY ==
[2022-09-01 12:16] LABS: Alanine Aminotransferase 34 U/L (0-40); Albumin Level 3.9 g/dL (3.5-5.0); Alkaline Phosphatase 102 U/L (39-117); Anion Gap 15 (12-20); Aspartate Amino Transferase 21 U/L (5-37); Bilirubin Total 1.3 mg/dL (0.0-1.0); Blood Urea Nitrogen 21 mg/dL (9-16); Carbon Dioxide 25 mmol/L (22-29); Chloride 103 mmol/L (96-108); Estimated Glomerular Filt Rate 55; Glucose Random 225 mg/dL (60-115); Potassium 4.5 mmol/L (3.3-5.1); Sodium 138 mmol/L (135-145); Total Protein 6.9 g/dL (6.5-8.0)
== END 2022-09-01 10:07 | disposition home or self-care (01) ==
LOC: HO.WFDLDS 10:06
PROVIDERS: Visit Provider Family Medicine
DX: N18.9 Chronic kidney disease, unspecified (principal)
CPT/HCPCS: 36415; 80053

== ENCOUNTER 2022-09-13 12:56 | Outpatient (REF) | payer MEDICARE, SELFPAY ==
[2022-09-13 15:51] LABS: Digoxin 1.1 ng/mL (0.8-2.0)
[2022-09-13 15:53] LABS: Anion Gap 15 (12-20); Blood Urea Nitrogen 27 mg/dL (9-16); Calcium 9.5 mg/dL (8.4-10.2); Carbon Dioxide 25 mmol/L (22-29); Chloride 102 mmol/L (96-108); Estimated Glomerular Filt Rate 56; Glucose Random 158 mg/dL (60-115); Potassium 4.6 mmol/L (3.3-5.1); Sodium 137 mmol/L (135-145)
[2022-09-13 17:21] LABS: Appearance Urine Clear; Color Urine Yellow; Glucose Urine UA 500 mg/dL (Negative); Leukocyte Esterase Urine Negative (Negative); Nitrite Urine Negative (Negative); Urine Blood Negative (Negative); Urine Ketones Negative (Negative); Urine Protein Negative (Neg-Trace)
[2022-09-13 18:01] LABS: Creatinine Urine 18.12 mg/dL; Microalbumin Urine < 5.0 mg/L
== END 2022-09-13 12:57 | disposition home or self-care (01) ==
LOC: HO.LAB 12:56
PROVIDERS: PCP Family Medicine; Referring Provider Family Medicine; Visit Provider Internal Medicine Cardiovascular Disease
DX: Z00.00 Encounter for general adult medical examination without abnormal findings (principal); I25.10 Atherosclerotic heart disease of native coronary artery without angina pectoris; I48.20 Chronic atrial fibrillation, unspecified; E11.22 Type 2 diabetes mellitus with diabetic chronic kidney disease; I13.0 Hypertensive heart and chronic kidney disease with heart failure and stage 1 through stage 4 chronic kidney disease, or unspecified chronic kidney disease; N18.9 Chronic kidney disease, unspecified; I50.9 Heart failure, unspecified; Z79.899 Other long term (current) drug therapy
CPT/HCPCS: 36415; 80048; 80162; 81003; 82043; 99212

== ENCOUNTER → 2023-02-21 09:41 | Outpatient (REF) | payer MEDICARE, SELFPAY ==
--- NOTE | 2023-02-21 09:44 | CA_ITS ---
Transthoracic Echocardiogram Patient (Last, First, Middle): Km Estevez, Gender: Male Date of : 1945 Age: 77 Procedure Date: 02/21/2023 Procedure Type: Transthoracic Echocardiogram Location: OP Height: 162.56 cm Weight: 86.64 kg BSA: 1.92 m2 Heart Rate: bpm BP: 125 / 76 mmHg Printer Helper: CHAMP Referring MD: Slim Snow MD Symptoms: I50.9 - Heart failure, unspecified Study Quality: Adequate w contrast ECG Rhythm: Atrial Fibrillation Conclusions: - The left ventricular systolic function is mildly decreased. The calculated ejection fraction is 49% by biplane method. - The apex segment is akinetic. - No obvious valvular pathology seen on this study. Findings Procedure Information Contrast agent, definity, is being given per protocol without apparent complications. Left Ventricle Normal left ventricular cavity size. There is mildly increased left ventricular wall thickness. The left ventricular systolic function is mildly decreased. The calculated ejection fraction is 49% by biplane method. There is no evidence of regional wall motion abnormalities. Diastolic function is indeterminate on the basis of available data. Wall Motion Rest Echo Findings The apex segment is akinetic. Right Ventricle There is mildly decreased right ventricular systolic function. Atria Both atria are normal in size. Aortic Valve There is a normal trileaflet aortic valve. There is no aortic valve stenosis. There is trace (trivial) aortic valve regurgitation. Mitral Valve The mitral valve appears normal. There is trace mitral valve regurgitation. There is no mitral valve stenosis. Pulmonic Valve The pulmonic valve is likely normal. Tricuspid Valve There is mild tricuspid valve regurgitation. There is no evidence of pulmonary hypertension. Great Vessels The asc aorta is normal in size. Venous The inferior vena cava is normal in size and collapses greater than 50% with inspiration. Pericardium/Pleural There is no evidence of pericardial effusion. Prior Study Comparison No significant change compared to prior study dated: 10/26/2021. Recommendations, Care & Conclusions No obvious valvular pathology seen on this study. Measurements 2D Linear Measurements IVSd: 1.03 0.6-0.9/0.6-1.0 cm LVIDd: 4.99 3.9-5.3/4.2-5.9 cm LVIDd Index: 2.60 2.4-3.2/2.2-3.1 cm/m2 LVIDs: 3.24 2.0-3.6 cm LVPWd: 1.04 0.7-1.1 cm LA Diam: 4.10 2.7-3.8/3.0-4.0 cm LAIDs Index: 2.14 1.5-2.3 cm/m2 LV Mass: 236.75 67-162/88-224 g LV Mass Index: 123.31 43-95/49-115 g/m2 LVOT Diam: 2.20 3.0+(-)1.3 cm 2D Systolic Function EF 4C: 41.40 >55% EF 2C: 54.30 >55% EF BiP: 48.60 >55% Mitral Valve MV Pk E: 0.74 Aortic Valve AoV Pk Félix: 1.00 AoV Pk Grad: 4.00 ABIGAIL: 3.08 AI Pk Félix: 2.82 AI Villalba: 1.11 LVOT LVOT Pk Félix: 0.81 LVOT Mn Félix: 0.51 LVOT VTI: 0.14 LVOT Pk Grad: 3.00 LVOT Mn Grad: 1.00 LVOT Diam: 2.20 LVOT Area: 3.80 Diastolic Function MV Pk E: 0.74 Right Ventricle TAPSE (mm): 14.10 TVS' Félix: 9.25 Tricuspid Valve TR Pk Félix: 2.50 TR Pk Grad: 25.00 RA Press: 3.00 RVSP: 28.00 Great Vessels Aorta Sinus of Valsalva: 3.20 2.0-3.5 cm Ao Asc: 3.50 2.1-3.4 cm Pulmonary Valve PV Pk Félix: 0.74 Peak PV Grad: 2.00 Updated in Other Vendor System with Status of Final Tk Zuniga MD electronically signed on 02/21/2023 1:29:04 PM with status of Final
== END ==
LOC: HO.CARD 09:41
PROVIDERS: PCP Family Medicine; Visit Provider Internal Medicine Cardiovascular Disease
DX: I50.9 Heart failure, unspecified (principal)
CPT/HCPCS: 93306; Q9957

== ENCOUNTER → 2023-03-07 10:00 | Outpatient (BNVA) | payer MEDICARE, SELFPAY | PROVIDERS: PCP Family Medicine; Referring Provider Family Medicine; Visit Provider Internal Medicine Cardiovascular Disease | DX: I48.91 Unspecified atrial fibrillation (principal); I25.10 Atherosclerotic heart disease of native coronary artery without angina pectoris; I11.0 Hypertensive heart disease with heart failure; I50.9 Heart failure, unspecified | CPT/HCPCS: 93005; 99212 ==

== ENCOUNTER 2023-03-08 08:48 | Outpatient (REF) | payer MEDICARE, SELFPAY ==
[2023-03-08 12:51] LABS: Digoxin 0.6 ng/mL (0.8-2.0)
[2023-03-08 12:54] LABS: Anion Gap 16 (12-20); Blood Urea Nitrogen 28 mg/dL (9-16); Calcium 8.9 mg/dL (8.4-10.2); Carbon Dioxide 22 mmol/L (22-29); Chloride 108 mmol/L (96-108); Estimated Glomerular Filt Rate 55; Glucose Random 184 mg/dL (60-115); Potassium 4.6 mmol/L (3.3-5.1); Sodium 141 mmol/L (135-145)
== END 2023-03-08 08:49 | disposition home or self-care (01) ==
LOC: HO.WFDLDS 08:48
PROVIDERS: Visit Provider Internal Medicine Cardiovascular Disease
DX: I48.91 Unspecified atrial fibrillation (principal)
CPT/HCPCS: 36415; 80048; 80162

== ENCOUNTER 2023-03-28 08:36 | Outpatient (REF) | payer MEDICARE, SELFPAY ==
[2023-03-28 11:25] LABS: Alanine Aminotransferase 28 U/L (0-40); Albumin Level 4.1 g/dL (3.5-5.0); Alkaline Phosphatase 91 U/L (39-117); Anion Gap 14 (12-20); Aspartate Amino Transferase 16 U/L (5-37); Bilirubin Total 1.4 mg/dL (0.0-1.0); Blood Urea Nitrogen 29 mg/dL (9-16); Calcium 9.6 mg/dL (8.4-10.2); Carbon Dioxide 25 mmol/L (22-29); Chloride 107 mmol/L (96-108); Estimated Glomerular Filt Rate 55; Glucose Fasting 187 mg/dL (60-99); Potassium 4.4 mmol/L (3.3-5.1); Sodium 142 mmol/L (135-145)
== END 2023-03-28 08:37 | disposition home or self-care (01) ==
LOC: HO.WFDLDS 08:36
PROVIDERS: Visit Provider Family Medicine
DX: Z00.00 Encounter for general adult medical examination without abnormal findings (principal)
CPT/HCPCS: 36415; 80053

== ENCOUNTER 2023-04-04 09:14 | Outpatient (REF) | payer MEDICARE, SELFPAY ==
[2023-04-04 12:02] LABS: Alanine Aminotransferase 26 U/L (0-40); Albumin Level 4.2 g/dL (3.5-5.0); Alkaline Phosphatase 109 U/L (39-117); Anion Gap 19 (12-20); Aspartate Amino Transferase 18 U/L (5-37); Bilirubin Total 1.3 mg/dL (0.0-1.0); Blood Urea Nitrogen 29 mg/dL (9-16); Calcium 9.7 mg/dL (8.4-10.2); Carbon Dioxide 23 mmol/L (22-29); Chloride 104 mmol/L (96-108); Cholesterol 93 mg/dL; Estimated Glomerular Filt Rate 50; Glucose Fasting 242 mg/dL (60-99); HDL Cholesterol 28 mg/dL; LDL Cholesterol Calculated 48 mg/dl; Potassium 4.6 mmol/L (3.3-5.1); Sodium 141 mmol/L (135-145); Total Protein 7.5 g/dL (6.5-8.0); Triglycerides 85 mg/dL
[2023-04-05 02:48] LABS: LDL Cholesterol Direct 55 mg/dL (<100)
== END 2023-04-04 09:15 | disposition home or self-care (01) ==
LOC: HO.WFDLDS 09:14
PROVIDERS: Visit Provider Family Medicine
DX: Z00.00 Encounter for general adult medical examination without abnormal findings (principal); E11.9 Type 2 diabetes mellitus without complications; E78.5 Hyperlipidemia, unspecified
CPT/HCPCS: 36415; 80053; 80061; 83721

== ENCOUNTER 2023-07-11 08:29 | Outpatient (AMB) | payer MEDICARE, SELFPAY ==
--- NOTE | 2023-07-11 08:40 | MHC.PC.OV ---
Vital Signs 07/11/23 08:41 Height 5 ft 4 in Weight 191 lb BMI 32.8 BP 120/78 Blood Pressure Location Lt brachial Position Sitting Pulse 57 Pulse Source Pulse Oximeter Pulse Oximetry (%) 99 Oxygen Delivery Method Room Air Intake Visit Reasons: follow-up diabetes and hyperlipidemia Intake Note: Patient is here to follow up on diabetes and hyperlipidemia. Patient needs his Furosemide, I see it was sent. Allergies No Known Allergies Allergy (Verified 07/11/23 08:45) Tobacco use date assessed: 04/04/23 Fall risk assessment: No Falls in past year Last assessed Fall Risk: 07/11/23 Dental Screening Dental Screen Date: 07/11/23 Did you have a dental visit in the last 12 months?: No Did you have a dental problem in the last 6 months where you did not have access to dental care?: No Was dental information given to patient?: Patient declined HPI follow-up diabetes and hyperlipidemia HPI Details 77 y/o male presents to f/u diabetes and hyperlipidemia. Had increased his metformin. A1c today 07/11/23 is 8.1%, which worsened from 7.9%. He is on metformin 250mg AM and 500mg PM, glipizide 10mg b.i.d. and Farxiga 10mg. He does note farxiga is expensive. He reports he has been taking his medication regimen consistently. Labs were drawn 04/04/23. Reviewed labs with pt. Triglycerides 85. TC 93. LDL 55. HDL 48. HDL low at 28. He is on artovastatin 80mg. Blood pressure today 120/78. He is on carvedilol 12.5mg b.i.d. and losartan 25mg daily. HPI Comments History of Present Illness Details Documentation assistance for Angel Gooden MD, was provided by [place],?Segregator on 07/11/2023 9:21 AM EST. I, Dr. Gooden, have read, observed, and verified documentation.? [facility] Medical History Afib History of colonic polyps long term care phlebotomist current use of anticoagulant DVT (deep venous thrombosis) Osteoarthritis of right knee Hyperlipidemia CAD (coronary artery disease) Essential hypertension Diabetes type 2, controlled Surgical History History of cardioversion Hx of colonoscopy Status post phlebectomy (~2019) Stented coronary artery Family History Father No problems noted. Mother No problems noted. Social History Household Members: Spouse Housing: House Are you a primary wound care specialist to a significant other at home: No Do you presently have visiting nurse or other home services: No Alcohol intake: current Alcohol intake frequency: holidays/special occasions only Patient Tobacco Use Status: Never used Tobacco e-Cigarette/Vaping Use: Never Used Second Hand Smoke Exposure: No service: No Current occupational status: retired Current occupational exposures/hazards: No Cognitive needs: No Hearing needs: No Vision needs: Yes (Glasses) Questionnaire PHQ-9 Over the last 2 weeks, how often have you been bothered by any of the following problems? 1. Little interest or pleasure in doing things: not at all 2. Feeling down, depressed, or hopeless: not at all 3. Trouble falling or staying asleep, or sleeping too much: not at all 4. Feeling tired or having little energy: not at all 5. Poor appetite or overeating: not at all 6. Feeling bad about yourself - or that you are a failure or have let yourself or your family down: not at all 7. Trouble concentrating on things, such as reading the newspaper or watching television: not at all 8. Moving or speaking so slowly that other people could have noticed. Or the opposite - being so fidgety or restless that you have been moving around a lot more than usual: not at all 9. Thoughts that you would be better off or of hurting yourself in some way: not at all Total score: 0 Source: Developed by Drs. Carrington Nielsen, Stephanie Villarreal, Stephen Sotelo and colleagues, with an educational augie from [employer]. Thrive Questionnaire Date Thrive assessed: 02/12/21 I am a: Patient What is your living situation today?: I have a steady place to live Within the past 12 months, did the food you bought not last and you didn't have the money to get more?: Never true Within the past 12 months, did you worry whether your food would run out before you got money to buy more?: Never true Do you have trouble paying for medicines?: No Do you have trouble getting transportation to medical appointments?: No Do you have trouble paying your heating and electricity bill?: No Do you have trouble taking care of your child, family member or friend?: No Do you have trouble with day-to-day activities such as bathing, preparing meals, shopping, managing finances, etc.?: No Are you currently unemployed and looking for a job?: No Are you interested in more education?: No AUDIT C Alcohol Use Questionnaire (AUDIT-C) 1. How often do you have a drink containing alcohol?: Never 3. How often do you have six or more drinks on one occasion?: Never Total Score: 0 NE-7 AMB Questionnaire NE-7 Date NE - 7 assessed: 07/11/23 Feeling nervous, anxious, or on edge: 0 = Not at all Not being able to stop or control worryin = Not at all Worrying too much about different things: 0 = Not at all Trouble relaxin = Not at all Being so restless that it is hard to sit still: 0 = Not at all Becoming easily annoyed or irritable: 0 = Not at all Feeling afraid as if something awful might happen: 0 = Not at all Total NE-7 score (0-4 normal; 5-9 mild; 10-14 moderate; 15-21 severe): 0 Source: Developed by Drs. Carrington Nielsen, Stephanie Villarreal, Stephen Sotelo and colleagues, with an educational augie from [employer]. Review of Systems Const Denies chills, Denies fatigue, Denies fever(s), Denies headache(s) and Denies weakness ENT Denies dizziness and Denies headache(s) Card Denies chest pain, Denies lightheadedness, Denies dyspnea and Denies other (Palpitations) Resp Denies cough, Denies dyspnea, Denies wheezing and Denies other ( shortness of breath) Musc Denies numbness and Denies tingling Neuro Denies dizziness, Denies headache(s), Denies numbness, Denies tingling, Denies paresthesias and Denies weakness Psych Denies anxiety and Denies depression Endo Denies fatigue Aller/Immun Denies wheezing Physical exam (Primary Care) Vital Signs: Last Vital Signs Pulse 57 07/11/23 08:41 BP 120/78 07/11/23 08:41 Pulse Ox 99 07/11/23 08:41 Oxygen Delivery Method Room Air 07/11/23 08:41 BMI result Body Mass Index 32.8 Tobacco/Smoking Status: Tobacco use Status Tobacco use date assessed 04/04/23 07/11/23 08:43 Patient Tobacco Use Status Never used Tobacco 07/11/23 08:43 e-Cigarette/Vaping Use Never Used 07/11/23 08:43 PHQ-9: PHQ-9 Score PHQ-9: Total score 0 07/11/23 09:24 Thrive Assessment: Date of Thrive Assessment Date Thrive assessed 02/12/21 07/11/23 08:43 Const General: no acute distress and well developed Nutritional Appearance: well nourished Orientation/consciousness: patient oriented x3 HENMT Head: Yes normocephalic and Yes atraumatic Eyes General: appearance normal, both eyes and all related structures Pupils: Equal, round and reactive pupils present EOM: EOMs intact bilaterally Resp Effort & Inspection: normal respiratory effort Auscultation: clear to auscultation bilaterally Cardio Rate: regular rate Rhythm: regular rhythm Heart sounds: S1 normal heart sound present, S2 normal heart sound present, no gallops, no murmurs and no rubs Neuro General: patient oriented x3 and gait normal Cranial nerves: Yes Equal, round and reactive pupils present Psych Affect: normal affect Results AMB Hemoglobin A1c AMB Hemoglobin A1c 8.1 % Last Edit by Marie Iqbal CMA on 07/11/23 09:15 Results Reviewed Results Reviewed: Laboratory Last Values Hgb A1c (Clinic) 8.1 % (4.0-6.0) H 07/11/23 09:14 Assessment and Plan Assessment & Plan (1) Diabetes type 2, controlled: Code(s): E11.9 - Type 2 diabetes mellitus without complications Plan: A1c has climbed again to 8.1%. Will increase metformin by 500 mg per day Continue Farxiga and glipizide. He will work at improved diabetic diet. He has been eating bread with his noontime meal each day. He will work at trying to decrease starches and carbohydrates Also notes that Farxiga is expensive. He says he can continue this for now but we can look for alternatives when we get his blood sugars under better control. (2) Hypertension: Code(s): I10 - Essential (primary) hypertension Plan: Blood pressure is controlled. Goal is less than 130/80 Continue current regimen Orders: Orders AMB Hemoglobin A1c Today Z13.9 - Encounter for screening, unspecified Medications: Changed From metformin 250 mg (1/2 tab) in the a.m. and 500 mg (1 tab) p.m., orally daily; 135 tabs 3RF 90 days To metformin 500 mg (1 tab) in the a.m., 250 mg (1/2 tab) afternoon and 500 mg (1 tab) p.m., orally 3 times a day; 225 tabs 3RF 90 days Coding Level of Care Code Est Pt Level 3 (55451) Diagnoses Diabetes type 2, controlled E11.9 Hypertension I10
[2023-07-11 08:41] VITALS: BP 120/78; PULSE 57; O2SAT 99; BMI 32.8
== END 2023-07-11 09:41 | disposition home or self-care (01) ==
PROVIDERS: PCP Family Medicine; Visit Provider Family Medicine
DX: E11.9 Type 2 diabetes mellitus without complications (principal); I10 Essential (primary) hypertension
CPT/HCPCS: 83036; 99213

== ENCOUNTER 2023-09-19 09:30 | Outpatient (AMB) | payer MEDICARE, SELFPAY ==
[2023-09-19 09:36] VITALS: BP 120/80; PULSE 76; BMI 32.5
--- NOTE | 2023-09-19 09:36 | A.OFFVIS_ITS ---
Intake Vital Signs 09/19/23 09:36 Height 5 ft 4 in Weight 189 lb 9.561 oz BMI 32.5 BP 120/80 Blood Pressure Location Lt brachial Position Sitting Pulse 76 Intake Visit Reasons: 6 month f/u w/labs Intake Note: 6 month follow-up after labs feeling good Sfdc Consultant Required: No Allergies No Known Allergies Allergy (Verified 07/11/23 08:45) Medication List - Last Reconciled 09/19/23 by Slim Snow MD apixaban (Eliquis) 5 mg PO BID 90 days atorvastatin 80 mg PO BEDTIME 90 days benzonatate 200 mg PO BID PRN carvedilol 12.5 mg PO BID 90 days dapagliflozin propanediol (Farxiga) 10 mg PO DAILY digoxin (Digox) 125 mcg PO DAILY erythromycin 0.5 inches ophthalmic (eye) TID 7 days ezetimibe 10 mg PO DAILY furosemide 40 mg PO DAILY glipizide 10 mg PO BID 90 days losartan 25 mg PO DAILY 90 days metformin 500 mg (1 tab) in the a.m., 250 mg (1/2 tab) afternoon and 500 mg (1 tab) p.m., orally 3 times a day; 90 days HPI HPI Comments History of Present Illness Details Bill comes for follow-up. He has been doing very well from cardiac perspective. He said recently played 18 holes of golf. He is able to participate in regular physical activity. Denies any worsening shortness of breath, orthopnea, PND, leg edema. Denies any exertional chest pain. No prolonged palpitations irregular heartbeat. Takes all his medications. No bleeding issues or neurologic events. [facility] Medical History Afib History of colonic polyps buttermaker current use of anticoagulant DVT (deep venous thrombosis) Osteoarthritis of right knee Hyperlipidemia CAD (coronary artery disease) Essential hypertension Diabetes type 2, controlled Surgical History Stented coronary artery Status post phlebectomy (~2019) History of cardioversion Hx of colonoscopy Family History Father No problems noted. Mother No problems noted. Social History Household Members: Spouse Housing: House Are you a primary wound care coordinator to a significant other at home: No Do you presently have visiting nurse or other home services: No Alcohol intake: current Alcohol intake frequency: holidays/special occasions only Patient Tobacco Use Status: Never used Tobacco e-Cigarette/Vaping Use: Never Used Second Hand Smoke Exposure: No service: No Current occupational status: retired Current occupational exposures/hazards: No Cognitive needs: No Hearing needs: No Vision needs: Yes (Glasses) Review of Systems Const Denies chills, Denies fatigue, Denies fever(s), Denies frequent falls, Denies weakness, Denies weight gain and Denies weight loss ENT Denies dizziness Card Denies chest pain, Denies leg edema, Denies lightheadedness, Denies palpitations, Denies dyspnea, Denies dyspnea on exertion, Denies orthopnea and Denies other (loss of consciousness) Resp Denies cough, Denies dyspnea and Denies dyspnea on exertion GI Denies hematochezia and Denies change in stool character Musc Denies abnormal gait, Denies muscle weakness, Denies numbness, Denies radiating pain into limb and Denies tingling Neuro Denies abnormal gait, Denies dizziness, Denies frequent falls, Denies numbness, Denies tingling and Denies weakness Endo Denies fatigue and Denies palpitations Physical Exam Vital Signs: Last Vital Signs Pulse 76 09/19/23 09:36 BP 120/80 09/19/23 09:36 BMI result Body Mass Index 32.5 Const General: cooperative, comfortable, no acute distress, alert and awake Nutritional Appearance: obese Orientation/consciousness: patient oriented x3 Limitations: no limitations Neck Neck: Yes trachea midline, Yes supple and Yes no JVD Resp Effort & Inspection: normal respiratory effort Auscultation: clear to auscultation bilaterally Cardio Jugular venous distension: no JVD Rate: regular rate Rhythm: abnormal rhythm irregularly irregular Heart sounds: S1 normal heart sound present, S2 normal heart sound present, no click, no gallops and no murmurs GI Inspection: Yes obesity Auscultation: normal bowel sounds Skin General skin exam: no rashes or lesions noted Neuro General: patient oriented x3 and no focal motor deficits Extrem General: Yes no clubbing, cyanosis or edema Assessment & Plan Assessment & Plan (1) CAD (coronary artery disease): Code(s): I25.10 - Atherosclerotic heart disease of [place] coronary artery without angina pectoris Plan: CAD with prior LAD stenting with much improved symptoms of shortness of breath with his anginal equivalent. Continue aggressive medical therapy. Currently on full oral anticoagulation Eliquis and will therefore avoid aspirin therapy to reduce bleeding risk. Continue high-intensity statin therapy with last LDL in the 50s well optimized. Blood pressure is currently well optimized advised to monitor blood pressure at home maintain a log. Goal blood pressure less than 130/84. Continue aggressive diabetes management goal hemoglobin A1c less than 7%. Encouraged to continue to participate in physical activity and weight loss program. Importance of compliance with medications was discussed. (2) Afib: Code(s): I48.91 - Unspecified atrial fibrillation Plan: Chronic rate control atrial fibrillation. Has failed rhythm control approach. He has not developed any adverse symptoms related to persistent/chronic atrial fibrillation. Discuss higher risk of complications with prior to pursue rhythm control approach which may not benefit overall from symptom perspective. Digoxin assay every 6 months. Continue full oral anticoagulation, currently on Eliquis. Semi annual renal function test should be pursued. CHADSVASc score of 6. (3) Congestive heart failure: Code(s): I50.9 - Heart failure, unspecified Plan: Heart failure with minimal reduced LV ejection fraction 49%, ischemic cardiomyopathy. Clinically euvolemic and well compensated. Continue current diuretic dose. Continue current rate control with AFib. Continue aggressive blood pressure control. Continue neurohormonal modulation with losartan as well as carvedilol therapy. Will follow up in the clinic in 6 months time after an echocardiogram. Thank you for allowing me to partake in his care Orders: Orders Complete Blood Count no Diff Today I48.91 - Unspecified atrial fibrillation CA echo transthoracic complete 6 Months I50.9 - Heart failure, unspecified Digoxin Today I48.20 - Chronic atrial fibrillation, unspecified, I48.91 - Unspecified atrial fibrillation Basic Metabolic Panel Today I48.91 - Unspecified atrial fibrillation Medications: Refilled apixaban (Eliquis) 5 mg PO BID 180 tabs 3RF 90 days I48.91 - Unspecified atrial fibrillation Coding Level of Care Code Est Pt Level 4 (89987) Diagnoses CAD (coronary artery disease) I25.10 Afib I48.91 Congestive heart failure I50.9
== END 2023-09-19 09:56 | disposition home or self-care (01) ==
PROVIDERS: PCP Family Medicine; Visit Provider Internal Medicine Cardiovascular Disease
DX: I25.10 Atherosclerotic heart disease of native coronary artery without angina pectoris (principal); I48.91 Unspecified atrial fibrillation; I50.9 Heart failure, unspecified
CPT/HCPCS: 99214

== ENCOUNTER → 2023-09-19 09:30 | Outpatient (BNVA) | payer MEDICARE, SELFPAY | PROVIDERS: Visit Provider Internal Medicine Cardiovascular Disease | DX: I25.10 Atherosclerotic heart disease of native coronary artery without angina pectoris (principal); I48.91 Unspecified atrial fibrillation; I11.0 Hypertensive heart disease with heart failure; I50.9 Heart failure, unspecified; Z79.01 Long term (current) use of anticoagulants; Z95.5 Presence of coronary angioplasty implant and graft; Z98.890 Other specified postprocedural states | CPT/HCPCS: 99212 ==

== ENCOUNTER 2023-09-20 09:15 | Outpatient (REF) | payer MEDICARE, SELFPAY ==
[2023-09-20 10:50] LABS: Hematocrit 45.6 % (42.0-52.0); Hemoglobin 15.3 g/dl (14.0-18.0); Mean Corpuscular HGB Conc 33.6 g/dl (31.0-36.0); Mean Corpuscular Hemoglobin 29.9 pg (27.0-33.0); Mean Corpuscular Volume 89.2 fL (80.0-98.0); Mean Platelet Volume 10.4 fL (9.4-12.4); Platelet Count 242 X10*3/uL (160-400); Red Blood Count 5.11 X10*6/uL (4.60-5.80); Red Cell Distribution Width 13.5 % (11.0-16.0); White Blood Count 7.8 X10*3/uL (4.8-10.8)
[2023-09-20 12:17] LABS: Anion Gap 12 (12-20); Blood Urea Nitrogen 30 mg/dL (9-16); Calcium 9.3 mg/dL (8.4-10.2); Carbon Dioxide 24 mmol/L (22-29); Chloride 106 mmol/L (96-108); Estimated Glomerular Filt Rate 59; Glucose Random 195 mg/dL (60-115); Potassium 4.3 mmol/L (3.3-5.1); Sodium 138 mmol/L (135-145)
[2023-09-20 12:45] LABS: Digoxin 0.7 ng/mL (0.8-2.0)
== END 2023-09-20 09:16 | disposition home or self-care (01) ==
LOC: HO.WFDLDS 09:15
PROVIDERS: Visit Provider Internal Medicine Cardiovascular Disease
DX: I48.20 Chronic atrial fibrillation, unspecified (principal); Z79.899 Other long term (current) drug therapy
CPT/HCPCS: 36415; 80048; 80162; 85027

== ENCOUNTER 2023-10-03 09:15 | Outpatient (AMB) | payer MEDICARE, SELFPAY ==
[2023-10-03 09:20] VITALS: BP 122/78; PULSE 84; O2SAT 98; BMI 32.7
--- NOTE | 2023-10-03 09:20 | A.OFFPC_ITS ---
Vital Signs 10/03/23 09:20 Height 5 ft 4 in Weight 190 lb 4 oz BMI 32.7 BP 122/78 Blood Pressure Location Lt brachial Position Sitting Pulse 84 Pulse Source Pulse Oximeter Pulse Oximetry (%) 98 Oxygen Delivery Method Room Air Intake Visit Reasons: f/u diabetes and hypertension Intake Note: Patient is here for diabetes and hypertension. Patient would like refill of Furosemide. Allergies No Known Allergies Allergy (Verified 10/03/23 09:22) Medication List - Last Reconciled 10/03/23 by Angel Gooden MD apixaban (Eliquis) 5 mg PO BID 90 days atorvastatin 80 mg PO BEDTIME 90 days benzonatate 200 mg PO BID PRN carvedilol 12.5 mg PO BID 90 days dapagliflozin propanediol (Farxiga) 10 mg PO DAILY digoxin (Digox) 125 mcg PO DAILY erythromycin 0.5 inches ophthalmic (eye) TID 7 days ezetimibe 10 mg PO DAILY furosemide 40 mg PO DAILY glipizide 10 mg PO BID 90 days losartan 25 mg PO DAILY 90 days metformin 500 mg (1 tab) in the a.m., 250 mg (1/2 tab) afternoon and 500 mg (1 tab) p.m., orally 3 times a day; 90 days Tobacco use date assessed: 04/04/23 Fall risk assessment: No Falls in past year Last assessed Fall Risk: 10/03/23 Dental Screening Dental Screen Date: 10/03/23 Did you have a dental visit in the last 12 months?: No Did you have a dental problem in the last 6 months where you did not have access to dental care?: No Was dental information given to patient?: No HPI f/u diabetes and hypertension HPI Details 78 y/o male presents to f/u diabetes and hypertension. Last A1c 07/11/23 8.1%. A1c climbed further and had increased his metformin. A1c today 10/03/23 7.5%. He reports increase in metformin had been causing him bouts of diarrhea. No recent lipid panel to review. Blood pressure today 122/78. He is on losartan 25mg and carvedilol 12.5mg b.i.d. 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 Mother No problems noted. Social History Household Members: Spouse Housing: House Are you a primary respiratory care technician to a significant other at home: No Do you presently have visiting nurse or other home services: No Alcohol intake: current Alcohol intake frequency: holidays/special occasions only Patient Tobacco Use Status: Never used Tobacco e-Cigarette/Vaping Use: Never Used Second Hand Smoke Exposure: No service: No Current occupational status: retired Current occupational exposures/hazards: No Cognitive needs: No Hearing needs: No Vision needs: Yes (Glasses) Questionnaire Thrive Questionnaire Date Thrive assessed: 02/12/21 NE-7 AMB Questionnaire NE-7 Date NE - 7 assessed: 07/11/23 Source: Developed by Drs. Carrington Nielsen, Stephanie Villarreal, Stephen Sotelo and colleagues, with an educational augie from [employer]. Review of Systems Const Denies chills, Denies fatigue, Denies fever(s), Denies headache(s) and Denies weakness ENT Denies dizziness and Denies headache(s) Card Denies chest pain, Denies lightheadedness, Denies dyspnea and Denies other (Palpitations) Resp Denies cough, Denies dyspnea, Denies wheezing and Denies other ( shortness of breath) Musc Denies numbness and Denies tingling Neuro Denies dizziness, Denies headache(s), Denies numbness, Denies tingling, Denies paresthesias and Denies weakness Psych Denies anxiety and Denies depression Endo Denies fatigue Aller/Immun Denies wheezing Physical exam (Primary Care) Vital Signs: Last Vital Signs Pulse 84 10/03/23 09:20 BP 122/78 10/03/23 09:20 Pulse Ox 98 10/03/23 09:20 Oxygen Delivery Method Room Air 10/03/23 09:20 BMI result Body Mass Index 32.7 Tobacco/Smoking Status: Tobacco use Status Tobacco use date assessed 04/04/23 10/03/23 09:20 Patient Tobacco Use Status Never used Tobacco 10/03/23 09:20 e-Cigarette/Vaping Use Never Used 10/03/23 09:20 Thrive Assessment: Date of Thrive Assessment Date Thrive assessed 02/12/21 10/03/23 09:20 Const General: no acute distress and well developed Nutritional Appearance: well nourished Orientation/consciousness: patient oriented x3 HENMT Head: Yes normocephalic and Yes atraumatic Eyes General: appearance normal, both eyes and all related structures Pupils: Equal, round and reactive pupils present EOM: EOMs intact bilaterally Resp Effort & Inspection: normal respiratory effort Auscultation: clear to auscultation bilaterally Cardio Rate: regular rate Rhythm: regular rhythm Heart sounds: S1 normal heart sound present, S2 normal heart sound present, no gallops, no murmurs and no rubs Neuro General: patient oriented x3 and gait normal Cranial nerves: Yes Equal, round and reactive pupils present Psych Affect: normal affect Results AMB Hemoglobin A1c AMB Hemoglobin A1c 7.5 % Last Edit by Marie Iqbal CMA on 10/03/23 09:37 Results Reviewed Results Reviewed: Laboratory Last Values Hgb A1c (Clinic) 7.5 % (4.0-6.0) H 10/03/23 09:37 Assessment and Plan Assessment & Plan (1) Diabetes type 2, controlled: Code(s): E11.9 - Type 2 diabetes mellitus without complications Plan: A1c?7.5%?is?still?suboptimal?control He?is?also?having?difficulty?tolerati ng?metformin?and?has?some?difficulty?with?the?expense?of?Farxiga Will?give?him?a?script?for?Trulicity He?will?check?his?blood?sugars?during?the?day?and?can?ease?up?on?his?glipizide?i f?his?blood?sugars?are?getting?lower?than?100 If?he?is?able?to?afford?Trulicity?and?tolerating?it?well,?we?can?ease?up?on?metf ormin?and?or?Farxiga (2) Hypertension: Code(s): I10 - Essential (primary) hypertension Plan: Blood?pressure?is?well?controlled.??Goal?is?less?than?130/80 Continue?current?medication?regimen (3) Hyperlipidemia: Code(s): E78.5 - Hyperlipidemia, unspecified Plan: TC?and?LDL?cholesterol?are?well?controlled?on?atorvastatin?and?Zetia HDL?cholesterol?is?too?low Encouraged?exercise (4) CAD (coronary artery disease): Code(s): I25.10 - Atherosclerotic heart disease of [place] coronary artery without angina pectoris Plan: Stable Follow-up?with?Cardiology?as?recommended Orders: Orders AMB Hemoglobin A1c Today Z13.9 - Encounter for screening, unspecified Medications: New dulaglutide (Trulicity) 0.75 mg (0.5 mL) subcut QWEEK 30 days 2.5 mL 2RF dulaglutide (Trulicity) 0.75 mg (0.5 mL) subcut QWEEK 2 mL 2RF 28 days Coding Level of Care Code Est Pt Level 4 (68912) Diagnoses Diabetes type 2, controlled E11.9 Hypertension I10 Hyperlipidemia E78.5 CAD (coronary artery disease) I25.10
== END 2023-10-03 09:52 | disposition home or self-care (01) ==
PROVIDERS: PCP Family Medicine; Visit Provider Family Medicine
DX: E11.9 Type 2 diabetes mellitus without complications (principal); I10 Essential (primary) hypertension; E78.5 Hyperlipidemia, unspecified; I25.10 Atherosclerotic heart disease of native coronary artery without angina pectoris
CPT/HCPCS: 83036; 99214

== ENCOUNTER 2024-01-16 09:29 | Outpatient (AMB) | payer MEDICARE, SELFPAY ==
--- NOTE | 2024-01-16 09:38 | A.OFFPC_ITS ---
Vital Signs 01/16/24 09:39 Height 5 ft 4 in Weight 187 lb 8 oz BMI 32.2 BP 120/70 Blood Pressure Location Lt brachial Position Sitting Pulse 63 Pulse Source Pulse Oximeter Pulse Oximetry (%) 97 Oxygen Delivery Method Room Air Intake Visit Reasons: Follow up htn,diabetes Intake Note: Patient is here to follow up on diabetes and hypertension. Patient is requesting 90 day refill of Furosemide. Allergies No Known Allergies Allergy (Verified 01/16/24 09:44) Medication List - Last Reconciled 01/16/24 by Angel Gooden MD apixaban (Eliquis) 5 mg PO BID 90 days atorvastatin 80 mg PO BEDTIME 90 days benzonatate 200 mg PO BID PRN carvedilol 12.5 mg PO BID 90 days dapagliflozin propanediol (Farxiga) 10 mg PO DAILY digoxin (Digox) 125 mcg PO DAILY dulaglutide (Trulicity) 0.75 mg (0.5 mL) subcut QWEEK 28 days erythromycin 0.5 inches ophthalmic (eye) TID 7 days ezetimibe 10 mg PO DAILY furosemide 40 mg PO DAILY 90 days glipizide 10 mg PO BID 90 days losartan 25 mg PO DAILY 90 days metformin 500 mg (1 tab) in the a.m., 250 mg (1/2 tab) afternoon and 500 mg (1 tab) p.m., orally 3 times a day; 90 days Tobacco use date assessed: 01/16/24 Fall risk assessment: No Falls in past year Last assessed Fall Risk: 01/16/24 Dental Screening Dental Screen Date: 01/16/24 Did you have a dental visit in the last 12 months?: No Did you have a dental problem in the last 6 months where you did not have access to dental care?: No Was dental information given to patient?: Patient declined HPI Follow up htn,diabetes HPI Details 78 y/o male presents to f/u hypertension , diabetes. Last A1c 10/03/23 7.5%. Had added Trulicity to his diabetes regimen last office visit in September. He states he was able to get this and has been taking this once a week. He notes blood sugars at home have been in the 135-145 range with a few 110s in the morning. He continues taking metformin, glipizide and Farxiga. He notes he takes metformin 500mg in the morning and 500mg at night. A1c today 01/16/24 is Blood pressure today 120/70. He is on carvedilol 12.5mg b.i.d, losartan 25 mg daily. [facility] Medical History Afib History of colonic polyps assisted current use of anticoagulant DVT (deep venous thrombosis) Osteoarthritis of right knee Hyperlipidemia CAD (coronary artery disease) Essential hypertension Diabetes type 2, controlled Surgical History Stented coronary artery Status post phlebectomy (~2019) History of cardioversion Hx of colonoscopy Family History Father No problems noted. Mother No problems noted. Social History Household Members: Spouse Housing: House Are you a primary landcare facilitator to a significant other at home: No Do you presently have visiting nurse or other home services: No Alcohol intake: current Alcohol intake frequency: holidays/special occasions only Patient Tobacco Use Status: Never used Tobacco e-Cigarette/Vaping Use: Never Used Second Hand Smoke Exposure: No service: No Current occupational status: retired Current occupational exposures/hazards: No Cognitive needs: No Hearing needs: No Vision needs: Yes (Glasses) Questionnaire PHQ-9 Over the last 2 weeks, how often have you been bothered by any of the following problems? 1. Little interest or pleasure in doing things: not at all 2. Feeling down, depressed, or hopeless: more than half the days 3. Trouble falling or staying asleep, or sleeping too much: not at all 4. Feeling tired or having little energy: not at all 5. Poor appetite or overeating: not at all 6. Feeling bad about yourself - or that you are a failure or have let yourself or your family down: not at all 7. Trouble concentrating on things, such as reading the newspaper or watching television: not at all 8. Moving or speaking so slowly that other people could have noticed. Or the opposite - being so fidgety or restless that you have been moving around a lot more than usual: not at all 9. Thoughts that you would be better off or of hurting yourself in some way: not at all Total score: 2 Depression Screening Interpretation: Negative Depression Screening Done: Yes Source: Developed by Drs. Carrington Nielsen, Stephen Canales and colleagues, with an educational augie from [employer]. Thrive Questionnaire Date Thrive assessed: 01/16/24 I am a: Patient What is your living situation today?: I have a steady place to live Within the past 12 months, did the food you bought not last and you didn't have the money to get more?: Never true Within the past 12 months, did you worry whether your food would run out before you got money to buy more?: Never true Do you have trouble paying for medicines?: Yes (Trouble with Eliquis) Do you have trouble getting transportation to medical appointments?: No Do you have trouble paying your heating and electricity bill?: No Do you have trouble taking care of your child, family member or friend?: No Do you have trouble with day-to-day activities such as bathing, preparing meals, shopping, managing finances, etc.?: No Are you currently unemployed and looking for a job?: No Are you interested in more education?: No THRIVE Score: 0 AUDIT C Alcohol Use Questionnaire (AUDIT-C) 1. How often do you have a drink containing alcohol?: Never 3. How often do you have six or more drinks on one occasion?: Never Total Score: 0 NE-7 AMB Questionnaire NE-7 Date NE - 7 assessed: 01/16/24 Feeling nervous, anxious, or on edge: 0 = Not at all Not being able to stop or control worryin = Not at all Worrying too much about different things: 0 = Not at all Trouble relaxin = Not at all Being so restless that it is hard to sit still: 0 = Not at all Becoming easily annoyed or irritable: 0 = Not at all Feeling afraid as if something awful might happen: 0 = Not at all Total NE-7 score (0-4 normal; 5-9 mild; 10-14 moderate; 15-21 severe): 0 Source: Developed by Stephanie Gresham Kurt Kroenke and colleagues, with an educational augie from [address]. Review of Systems Const Denies chills, Denies fatigue, Denies fever(s), Denies headache(s) and Denies weakness ENT Denies dizziness and Denies headache(s) Card Denies dyspnea Resp Denies cough, Denies dyspnea, Denies wheezing and Denies other (shortness of breath) Musc Denies numbness and Denies tingling Neuro Denies dizziness, Denies headache(s), Denies numbness, Denies tingling and Denies weakness Psych Denies anxiety and Denies depression Endo Denies fatigue Aller/Immun Denies wheezing Physical exam (Primary Care) Vital Signs: Last Vital Signs Pulse 63 01/16/24 09:39 BP 120/70 01/16/24 09:39 Pulse Ox 97 01/16/24 09:39 Oxygen Delivery Method Room Air 01/16/24 09:39 BMI result Body Mass Index 32.2 Tobacco/Smoking Status: Tobacco use Status Tobacco use date assessed 01/16/24 01/16/24 09:47 Patient Tobacco Use Status Never used Tobacco 01/16/24 09:47 e-Cigarette/Vaping Use Never Used 01/16/24 09:47 PHQ-9: PHQ-9 Score PHQ-9: Total score 2 01/16/24 09:56 Depression Screening Interpretation: Negative Thrive Assessment: Date of Thrive Assessment Date Thrive assessed 01/16/24 01/16/24 09:55 Const General: well developed; No acute distress Nutritional Appearance: well nourished Orientation/consciousness: patient oriented x3 HENMT Head: Yes normocephalic and Yes atraumatic Eyes General: appearance normal, both eyes and all related structures Pupils: Equal, round and reactive pupils present EOM: EOMs intact bilaterally Resp Effort & Inspection: normal respiratory effort Neuro General: patient oriented x3 and gait normal Cranial nerves: Yes Equal, round and reactive pupils present Psych Affect: normal affect Results AMB Hemoglobin A1c AMB Hemoglobin A1c 7.7 % Last Edit by Marie Iqbal CMA on 01/16/24 10:03 Results Reviewed Results Reviewed: Laboratory Last Values Hgb A1c (Clinic) 7.7 % (4.0-6.0) H 01/16/24 09:57 Assessment and Plan Assessment & Plan (1) Hypertension: Code(s): I10 - Essential (primary) hypertension Plan: Blood?pressure?is?well?controlled.??Goal?is?less?than?130/80?for?patient?with?co ronary?artery?disease Continue?current?medication?regimen (2) CAD (coronary artery disease): Code(s): I25.10 - Atherosclerotic heart disease of [place] coronary artery without angina pectoris Plan: Stable Continue?good?cholesterol?control?and?work?at?improved?blood?sugar?control (3) Diabetes type 2, controlled: Code(s): E11.9 - Type 2 diabetes mellitus without complications Plan: A1c?climbed?from?7.5-7.7?despite?adding?Trulicity. Patient?was?prescribed?metformin?3?times?a?day?but?has?only?been?taking?metformi n?500?mg?b.i.d. Blood?sugars?at?home?have?been?running?in?the?140s Increased?Trulicity?from?0.75-1.5?and?contin ued?his?glipizide,?Farxiga?and?metformin?(metformin?500?mg?b.i.d.) Discussed?with?patient?that?there?have?been?shortages?of?Trulicity.??He?will?let ?me?know?if?he?is?having?difficulty?getting?this?medication Will?get?him?back?in?a?month?for?close?follow-up (4) Hyperlipidemia: Code(s): E78.5 - Hyperlipidemia, unspecified Plan: Due?to?recheck?lipids?and?he?is?fasting (5) Low HDL (under 40): Code(s): E78.6 - Lipoprotein deficiency Plan: Due?to?recheck?lipids.??Patient?is?fasting?will?get?his?blood?drawn?today We?can?follow-up?on?this?at?his?next?visit Orders: Orders AMB Hemoglobin A1c Today Z13.9 - Encounter for screening, unspecified Medications: Changed From furosemide 40 mg PO DAILY 30 tabs 0RF To furosemide 40 mg PO DAILY 90 days 90 tabs 1RF From dulaglutide (Trulicity) 0.75 mg (0.5 mL) subcut QWEEK 28 days 2 mL 2RF To dulaglutide 0.75 mg (0.25 mL) subcut QWEEK 28 days 1 mL 2RF From metformin 500 mg (1 tab) in the a.m., 250 mg (1/2 tab) afternoon and 500 mg (1 tab) p.m., orally 3 times a day; 90 days 225 tabs 3RF To metformin 500 mg PO BID 180 tabs 3RF 90 days Coding Level of Care Code Est Pt Level 4 (35372) Diagnoses Hypertension I10 CAD (coronary artery disease) I25.10 Diabetes type 2, controlled E11.9 Hyperlipidemia E78.5 Low HDL (under 40) E78.6
[2024-01-16 09:39] VITALS: BP 120/70; PULSE 63; O2SAT 97; BMI 32.2
== END 2024-01-16 10:07 | disposition home or self-care (01) ==
PROVIDERS: PCP Family Medicine; Visit Provider Family Medicine
DX: E11.69 Type 2 diabetes mellitus with other specified complication (principal); I10 Essential (primary) hypertension; I25.10 Atherosclerotic heart disease of native coronary artery without angina pectoris; E78.5 Hyperlipidemia, unspecified; E78.6 Lipoprotein deficiency
CPT/HCPCS: 83036; 99214

== ENCOUNTER 2024-01-16 10:10 | Outpatient (REF) | payer MEDICARE, SELFPAY ==
[2024-01-16 11:46] LABS: Alanine Aminotransferase 34 U/L (0-40); Albumin Level 4.1 g/dL (3.5-5.0); Alkaline Phosphatase 73 U/L (39-117); Anion Gap 12 (12-20); Aspartate Amino Transferase 22 U/L (5-37); Bilirubin Total 0.9 mg/dL (0.0-1.0); Blood Urea Nitrogen 25 mg/dL (9-16); Calcium 9.4 mg/dL (8.4-10.2); Carbon Dioxide 27 mmol/L (22-29); Chloride 107 mmol/L (96-108); Cholesterol 98 mg/dL (<200); Estimated Glomerular Filt Rate 55; Glucose Fasting 170 mg/dL (60-99); HDL Cholesterol 28 mg/dL (>40); LDL Cholesterol Calculated 51 mg/dL (<100); Potassium 4.5 mmol/L (3.3-5.1); Sodium 141 mmol/L (135-145); Total Protein 7.3 g/dL (6.5-8.0); Triglycerides 99 mg/dL (<150)
== END 2024-01-16 10:11 | disposition home or self-care (01) ==
LOC: HO.WFDLDS 10:10
PROVIDERS: Visit Provider Family Medicine
DX: Z00.00 Encounter for general adult medical examination without abnormal findings (principal); E78.6 Lipoprotein deficiency
CPT/HCPCS: 36415; 80053; 80061

== ENCOUNTER 2024-02-20 10:19 | Outpatient (AMB) | payer MEDICARE, SELFPAY ==
--- NOTE | 2024-02-20 10:39 | MHC.PC.OV ---
Vital Signs 02/20/24 10:40 Height 5 ft 4 in Weight 182 lb BMI 31.2 BP 124/70 Blood Pressure Location Lt brachial Position Sitting Pulse 98 Pulse Source Pulse Oximeter Pulse Oximetry (%) 99 Oxygen Delivery Method Room Air Intake Visit Reasons: follow up diabetes Intake Note: Patient is here to follow up on diabetes, he new prescription for Trulicity. Allergies No Known Allergies Allergy (Verified 02/20/24 10:42) Tobacco use date assessed: 02/20/24 Fall risk assessment: No Falls in past year Last assessed Fall Risk: 02/20/24 Dental Screening Dental Screen Date: 02/20/24 Did you have a dental visit in the last 12 months?: Yes Did you have a dental problem in the last 6 months where you did not have access to dental care?: No Was dental information given to patient?: Patient has dentist HPI follow up diabetes HPI Details 78 y/o male presents to f/u diabetes. Labs were drawn 01/16/24. Reviewed labs with pt. A1c 7.7%. He is on Trulicity 0.75mg, glipizide 10mg, metformin 500mg. Blood pressure today 124/70. Hx of CAD. He is on losartan 25mg, carvedilol 12.5mg daily. HPI Comments History of Present Illness Details Documentation assistance for Angel Gooden MD, was provided by [place], Senior Director on 02/20/2024 11:02 AM EST. I, Dr. Gooden, have read, observed, and verified documentation. [facility] Medical History Afib History of colonic polyps medical terminologist current use of anticoagulant DVT (deep venous thrombosis) Osteoarthritis of right knee Hyperlipidemia CAD (coronary artery disease) Essential hypertension Diabetes type 2, controlled Surgical History Stented coronary artery Status post phlebectomy (~2019) History of cardioversion Hx of colonoscopy Family History Father No problems noted. Mother No problems noted. Social History Household Members: Spouse Housing: House Are you a primary critical care clinical nurse specialist to a significant other at home: No Do you presently have visiting nurse or other home services: No Alcohol intake: current Alcohol intake frequency: holidays/special occasions only Patient Tobacco Use Status: Never used Tobacco e-Cigarette/Vaping Use: Never Used Second Hand Smoke Exposure: No service: No Current occupational status: retired Current occupational exposures/hazards: No Cognitive needs: No Hearing needs: No Vision needs: Yes (Glasses) Questionnaire Thrive Questionnaire Date Thrive assessed: 01/16/24 NE-7 AMB Questionnaire NE-7 Date NE - 7 assessed: 01/16/24 Source: Developed by Drs. Carrington Nielsen, Stephanie Villarreal, Stephen Sotelo and colleagues, with an educational augie from [employer]. Review of Systems Const Denies chills, Denies fatigue, Denies fever(s), Denies headache(s) and Denies weakness ENT Denies dizziness and Denies headache(s) Card Denies dyspnea Resp Denies cough, Denies dyspnea, Denies wheezing and Denies other (shortness of breath) Musc Denies numbness and Denies tingling Neuro Denies dizziness, Denies headache(s), Denies numbness, Denies tingling and Denies weakness Psych Denies anxiety and Denies depression Endo Denies fatigue Aller/Immun Denies wheezing Physical exam (Primary Care) Vital Signs: Last Vital Signs Pulse 98 02/20/24 10:40 BP 124/70 02/20/24 10:40 Pulse Ox 99 02/20/24 10:40 Oxygen Delivery Method Room Air 02/20/24 10:40 BMI result Body Mass Index 31.2 Tobacco/Smoking Status: Tobacco use Status Tobacco use date assessed 02/20/24 02/20/24 10:46 Patient Tobacco Use Status Never used Tobacco 02/20/24 10:40 e-Cigarette/Vaping Use Never Used 02/20/24 10:40 Thrive Assessment: Date of Thrive Assessment Date Thrive assessed 01/16/24 02/20/24 10:40 Const General: well developed; No acute distress Nutritional Appearance: well nourished Orientation/consciousness: patient oriented x3 HENMT Head: Yes normocephalic and Yes atraumatic Eyes General: appearance normal, both eyes and all related structures Pupils: Equal, round and reactive pupils present EOM: EOMs intact bilaterally Resp Effort & Inspection: normal respiratory effort Neuro General: patient oriented x3 and gait normal Cranial nerves: Yes Equal, round and reactive pupils present Psych Affect: normal affect Assessment and Plan Assessment & Plan (1) Diabetes type 2, controlled: Code(s): E11.9 - Type 2 diabetes mellitus without complications Plan: Unfortunately,?there?was?a?problem?with?the?prescription?and?patient?did?not?receive?the?increased?dose?of?Trulicity. Resent?this Will?try?to?pick?this?up?as?soon?as?possible?and?start?the?higher?dose?of?1.5?mg?weekly Discussed?with?patient?that?if?he?is?unable?to?get?it?in?a?timely?fashion,?he?will?increase?his?metformin?from?500?mg?b.i.d.?to?750?mg?b.i.d.,?temporarily?until?he?can get?the?higher?dose?of?Trulicity. Continue?glipizide?as?prescribed (2) Hypertension: Code(s): I10 - Essential (primary) hypertension Plan: Blood?pressure?is?well?controlled.??Goal?is?less?than?130/80 Continue?current?medication (3) Low HDL (under 40): Code(s): E78.6 - Lipoprotein deficiency Plan: Encouraged?exercise We?can?follow-up?on?his?lipids?at?his?next?visit.??He?will?get?his?blood?drawn?prior?to?the?appointment. (4) Hyperlipidemia: Code(s): E78.5 - Hyperlipidemia, unspecified Plan: He?is?on?atorvastatin Continue?atorvastatin?as?prescribed (5) CAD (coronary artery disease): Code(s): I25.10 - Atherosclerotic heart disease of [place] coronary artery without angina pectoris Plan: Stable Continue?current?medication?regimen?and?follow-up?with?Cardiology?as?recommended Orders: Orders Comprehensive [place]. Panel Fast Today Z00.00 - Encounter for general adult medical examination without abnormal findings Complete Blood Count Auto Diff Today Z00.00 - Encounter for general adult medical examination without abnormal findings Lipid Panel Today Z00.00 - Encounter for general adult medical examination without abnormal findings Microalbumin, Random (w Creat) Today I10 - Essential (primary) hypertension Prostate Specific Antigen Scr Today Z12.5 - Encounter for screening for malignant neoplasm of prostate TSH reflex Free T4 Today Z00.00 - Encounter for general adult medical examination without abnormal findings UA and rflx microscopic Today Z00.00 - Encounter for general adult medical examination without abnormal findings Medications: Changed From dulaglutide 0.75 mg (0.5 mL) subcut QWEEK 28 days 2 mL 2RF To dulaglutide 1.5 mg (0.5 mL) subcut QWEEK 28 days 2 mL 2RF Coding Level of Care Code Est Pt Level 4 (65867) Diagnoses Diabetes type 2, controlled E11.9 Hypertension I10 Low HDL (under 40) E78.6 Hyperlipidemia E78.5 CAD (coronary artery disease) I25.10
[2024-02-20 10:40] VITALS: BP 124/70; PULSE 98; O2SAT 99; BMI 31.2
== END 2024-02-20 11:34 | disposition home or self-care (01) ==
PROVIDERS: PCP Family Medicine; Visit Provider Family Medicine
DX: E11.69 Type 2 diabetes mellitus with other specified complication (principal); I10 Essential (primary) hypertension; E78.5 Hyperlipidemia, unspecified; E78.6 Lipoprotein deficiency; I25.10 Atherosclerotic heart disease of native coronary artery without angina pectoris
CPT/HCPCS: 99214

== ENCOUNTER 2024-04-04 13:25 | Outpatient (AMB) | payer MEDICARE, SELFPAY ==
[2024-04-04 13:46] VITALS: BP 120/76; PULSE 88; BMI 31.0
--- NOTE | 2024-04-04 13:46 | MHC.OFFVIS ---
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 Allergies No Known Allergies Allergy (Verified 02/20/24 10:42) Medication List - Last Reconciled 04/04/24 by Slim Snow MD apixaban (Eliquis) 5 mg PO BID 90 days atorvastatin 80 mg PO BEDTIME 90 days benzonatate 200 mg PO BID PRN carvedilol 12.5 mg PO BID 90 days dapagliflozin propanediol (Farxiga) 10 mg PO DAILY digoxin 125 mcg PO DAILY dulaglutide 1.5 mg (0.5 mL) subcut QWEEK 28 days ezetimibe 10 mg PO DAILY furosemide 40 mg PO DAILY 90 days glipizide 10 mg PO BID 90 days losartan 25 mg PO DAILY 90 days metformin 500 mg PO BID 90 days HPI Comments Details: Km comes for follow-up, accompanied by his . He denies any current cardiac complaints. Plays golf on a regular basis and has no exertional shortness of breath. Denies any exertional chest pain. Denies any orthopnea, PND, leg edema. Denies any prolonged palpitation irregular heartbeat. Takes all his medications. No bleeding issues or neurologic events. Last LDL was 51 mg/dL. 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 Mother No problems noted. Social History Household Members: Spouse Housing: House Are you a primary field care coordinator to a significant other at home: No Do you presently have visiting nurse or other home services: No Alcohol intake: current Alcohol intake frequency: holidays/special occasions only Patient Tobacco Use Status: Never used Tobacco e-Cigarette/Vaping Use: Never Used Second Hand Smoke Exposure: No service: No Current occupational status: retired Current occupational exposures/hazards: No Cognitive needs: No Hearing needs: No Vision needs: Yes (Glasses) Review of Systems Const Denies chills, Denies fatigue, Denies fever(s), Denies frequent falls, Denies weakness, Denies weight gain and Denies weight loss ENT Denies dizziness Card Denies chest pain, Denies leg edema, Denies lightheadedness, Denies palpitations, Denies dyspnea, Denies dyspnea on exertion, Denies orthopnea and Denies other (loss of consciousness) Resp Denies cough, Denies dyspnea and Denies dyspnea on exertion GI Denies hematochezia and Denies change in stool character Musc Denies abnormal gait, Denies muscle weakness, Denies numbness, Denies radiating pain into limb and Denies tingling Neuro Denies abnormal gait, Denies dizziness, Denies frequent falls, Denies numbness, Denies tingling and Denies weakness Endo Denies fatigue and Denies palpitations Physical Exam Vital Signs: Last Vital Signs Pulse 88 04/04/24 13:46 BP 120/76 04/04/24 13:46 BMI result Body Mass Index 31.0 Const General: cooperative, comfortable, no acute distress, alert and awake Nutritional Appearance: obese Orientation/consciousness: patient oriented x3 Limitations: no limitations Neck Neck: Yes trachea midline, Yes supple and Yes no JVD Resp Effort & Inspection: normal respiratory effort Auscultation: clear to auscultation bilaterally Cardio Jugular venous distension: no JVD Rate: regular rate Rhythm: abnormal rhythm irregularly irregular Heart sounds: S1 normal heart sound present, S2 normal heart sound present, no click, no gallops and no murmurs GI Inspection: Yes obesity Auscultation: normal bowel sounds Skin General skin exam: no rashes or lesions noted Neuro General: patient oriented x3 and no focal motor deficits Extrem General: Yes no clubbing, cyanosis or edema Office Procedures EKG Details: EKG shows atrial fibrillation with low-voltage QRS with poor R-wave progression with QS pattern in lead V1 V2 consistent with septal infarct [id number], Complete Assessment & Plan Assessment & Plan (1) Afib: Code(s): I48.91 - Unspecified atrial fibrillation Category: Medical Plan: Chronic rate control atrial fibrillation without any obvious symptoms or signs of decompensation at this point time. Has failed rhythm control approach in the past. Continue current dual rate control therapy with carvedilol and digoxin. Needs digoxin assay every 6 months. Will suggest the same. Continue full oral anticoagulation, currently on Eliquis 5 mg b.i.d.. Semi annual renal function test is recommended. (2) CAD (coronary artery disease): Code(s): I25.10 - Atherosclerotic heart disease of belkofski coronary artery without angina pectoris Category: Medical Plan: CAD with prior drug-eluting stent to LAD with symptoms of shortness of breath as his anginal equivalent. He is done extremely well with drug-eluting stent. Still had apical infarct pattern on the echo and nuclear stress test. Will continue monitor by echocardiogram. Continue high-intensity statin therapy with LDL currently well optimized. Blood pressure is currently well optimized. Currently on full oral anticoagulation with therefore avoid additional antiplatelet therapy to reduce bleeding risk. (3) Congestive heart failure: Code(s): I50.9 - Heart failure, unspecified Category: Medical Plan: Heart failure with minimal reduced LV ejection fraction. Follow-up echocardiogram near future. Clinically appears to be euvolemic and well compensated. Continue current diuretic dose along with Farxiga. Daily weight monitoring avoidance of salt loading was discussed. Signs and symptoms of heart failure were discussed additional diuretics as need be. Continue aggressive blood pressure control which is currently well optimized. Will follow up in the clinic in 6 months time, sooner p.r.n.. Thank you for allowing me to partake in his care Orders: Orders Basic Metabolic Panel Today I48.91 - Unspecified atrial fibrillation Complete Blood Count no Diff Today I48.91 - Unspecified atrial fibrillation CA echo transthoracic complete Today I50.9 - Heart failure, unspecified Digoxin Today I48.20 - Chronic atrial fibrillation, unspecified, I48.91 - Unspecified atrial fibrillation Coding Level of Care Code Est Pt Level 4 (32988) Diagnoses Afib I48.91 CAD (coronary artery disease) I25.10 Congestive heart failure I50.9 CPT Codes EKG - CPT: 91631-[id number], Complete ([id number])
== END 2024-04-04 14:10 | disposition home or self-care (01) ==
PROVIDERS: PCP Family Medicine; Visit Provider Internal Medicine Cardiovascular Disease
DX: I48.91 Unspecified atrial fibrillation (principal); I25.10 Atherosclerotic heart disease of native coronary artery without angina pectoris; I50.9 Heart failure, unspecified
CPT/HCPCS: 93010; 99214

== ENCOUNTER 2024-04-04 13:25 | Outpatient (REF) | payer MEDICARE, SELFPAY ==
[2024-04-04 15:43] LABS: Hematocrit 43.4 % (42.0-52.0); Hemoglobin 14.9 g/dl (14.0-18.0); Mean Corpuscular HGB Conc 34.3 g/dl (31.0-36.0); Mean Corpuscular Hemoglobin 29.8 pg (27.0-33.0); Mean Corpuscular Volume 86.8 fL (80.0-98.0); Mean Platelet Volume 10.8 fL (9.4-12.4); Platelet Count 250 X10*3/uL (160-400); Red Cell Distribution Width 14.2 % (11.0-16.0); White Blood Count 8.3 X10*3/uL (4.8-10.8)
[2024-04-04 16:35] LABS: Anion Gap 14 (12-20); Blood Urea Nitrogen 27 mg/dL (9-16); Calcium 10.1 mg/dL (8.4-10.2); Carbon Dioxide 25 mmol/L (22-29); Chloride 106 mmol/L (96-108); Estimated Glomerular Filt Rate 60; Glucose Random 99 mg/dL (60-115); Potassium 4.7 mmol/L (3.3-5.1); Sodium 140 mmol/L (135-145)
[2024-04-04 16:36] LABS: Digoxin 1.3 ng/mL (0.8-2.0)
== END 2024-04-04 13:26 | disposition home or self-care (01) ==
LOC: HO.LAB 13:25
PROVIDERS: PCP Family Medicine; Visit Provider Internal Medicine Cardiovascular Disease
DX: I48.20 Chronic atrial fibrillation, unspecified (principal); I25.10 Atherosclerotic heart disease of native coronary artery without angina pectoris; I50.9 Heart failure, unspecified
CPT/HCPCS: 36415; 80048; 80162; 85027; 93005; 99212

== ENCOUNTER → 2024-04-23 08:39 | Outpatient (REF) | payer MEDICARE, SELFPAY ==
--- NOTE | 2024-04-23 08:42 | CA_ITS ---
Transthoracic Echocardiogram Patient (Last, First, Middle): Km Estevez, Gender: Male Date of : 1945 Age: 78 Procedure Date: 04/23/2024 Procedure Type: Transthoracic Echocardiogram Location: OP Height: 162.56 cm Weight: 82.1 kg BSA: 1.87 m2 Heart Rate: 56 bpm BP: 118 / 65 mmHg Medical Housekeeper: VALERIANO Referring MD: Slim Snow MD Symptoms: I50.9 - Heart failure, unspecified Study Quality: Adequate w Contrast ECG Rhythm: Atrial Fibrillation Conclusions: - The left ventricular systolic function is low normal. The visually estimated ejection fraction is between 50-55%. - The apex segment is akinetic. - The basal inferolateral segment is hypokinetic. - No obvious valvular pathology seen on this study. Findings Procedure Information Contrast agent, definity, is being given per protocol without apparent complications. Left Ventricle Normal left ventricular cavity size. The left ventricular systolic function is low normal. The visually estimated ejection fraction is between 50-55%. There is evidence of regional wall motion abnormalities. Diastolic function is indeterminate on the basis of available data. There is mild septal asymmetric hypertrophy. Wall Motion Rest Echo Findings The basal inferolateral segment is hypokinetic. The apex segment is akinetic. Right Ventricle There is low normal right ventricular systolic function. There is normal right ventricular wall thickness. Atria Both atria are normal in size. Aortic Valve There is a normal trileaflet aortic valve. There is no aortic valve stenosis. There is mild aortic valve regurgitation. Mitral Valve The mitral valve appears normal. There is trace mitral valve regurgitation. There is no mitral valve stenosis. Pulmonic Valve The pulmonic valve is likely normal. Tricuspid Valve Normal tricuspid valve structure. There is trace tricuspid valve regurgitation. There is no evidence of pulmonary hypertension. Great Vessels The aortic annulus, sinuses of valsalva, and asc aorta are normal in size. Venous The inferior vena cava is normal in size and collapses greater than 50% with inspiration. Pericardium/Pleural There is no evidence of pericardial effusion. Prior Study Comparison No significant change compared to prior study dated: 02/21/2023. Inferolateral wall motion abnormality probably present in prior study, but better seen in current study. Recommendations, Care & Conclusions No obvious valvular pathology seen on this study. Measurements 2D Linear Measurements IVSd: 1.05 0.6-0.9/0.6-1.0 cm LVIDd: 4.24 3.9-5.3/4.2-5.9 cm LVIDd Index: 2.27 2.4-3.2/2.2-3.1 cm/m2 LVIDs: 2.37 2.0-3.6 cm LVPWd: 0.85 0.7-1.1 cm Ao Root: 3.30 2.1-3.5 cm LA Diam: 3.90 2.7-3.8/3.0-4.0 cm LAIDs Index: 2.09 1.5-2.3 cm/m2 LV Mass: 161.58 67-162/88-224 g LV Mass Index: 86.41 43-95/49-115 g/m2 LVOT Diam: 2.20 3.0+(-)1.3 cm 2D Systolic Function EF 4C: 50.10 >55% EF 2C: 61.80 >55% EF BiP: 55.90 >55% Mitral Valve MV Pk E: 0.81 MV Decel Time: 168.00 E'Lateral: 12.00 E'Medial: 8.59 E/E' Med: 9.50 E/E' Lat: 6.80 PHT: 49.00 MVA PHT: 4.49 Decel [place]: 4.84 Aortic Valve AoV Pk Félix: 1.04 AoV Mn Félix: 0.75 AoV VTI: 0.17 AoV Pk Grad: 4.00 Aov Mn Grad: 2.00 ABIGAIL Cont.VTI: 2.94 AI Pk Félix: 2.94 AI [place]: 1.46 LVOT LVOT Pk Félix: 0.80 LVOT Mn Félix: 0.53 LVOT VTI: 0.13 LVOT Pk Grad: 3.00 LVOT Mn Grad: 1.00 LVOT Diam: 2.20 LVOT Area: 3.80 Diastolic Function MV Pk E: 0.81 E'Medial: 8.59 E/E' Med: 9.50 E' Laterial: 12.00 E/E' Lat: 6.80 Right Ventricle TAPSE (mm): 16.00 TVS' Félix: 11.00 Tricuspid Valve TR Pk Félix: 2.14 TR Pk Grad: 18.00 RA Press: 3.00 RVSP: 21.00 Great Vessels Aorta Ao Root-2D: 3.30 2.0-3.7 cm Ao Asc: 3.70 2.1-3.4 cm Pulmonary Valve PV Pk Félix: 0.73 Peak PV Grad: 2.00 Updated in Other Vendor System with Status of Final Tk Zuniga MD electronically signed on 04/24/2024 11:29:35 AM with status of Final
== END ==
LOC: HO.CARD 08:39
PROVIDERS: PCP Family Medicine; Visit Provider Internal Medicine Cardiovascular Disease
DX: I50.9 Heart failure, unspecified (principal)
CPT/HCPCS: 93306; Q9957

== ENCOUNTER → 2024-04-23 08:42 | Outpatient (BNV) | payer MEDICARE, SELFPAY | PROVIDERS: PCP Family Medicine; Visit Provider Internal Medicine | DX: I35.1 Nonrheumatic aortic (valve) insufficiency (principal); R93.1 Abnormal findings on diagnostic imaging of heart and coronary circulation | CPT/HCPCS: 93306 ==

== ENCOUNTER 2024-04-30 09:12 | Outpatient (REF) | payer MEDICARE, SELFPAY ==
[2024-04-30 11:12] LABS: MANUAL DIFF FLAG NO
[2024-04-30 11:20] LABS: Basophils Absolute Auto 0.1 X10*3/uL (0.0-0.2); Basophils Percent Auto 1.1 % (0-2); Eosinophils Absolute Auto 0.2 X10*3/uL (0.0-0.4); Eosinophils Percent Auto 3.1 % (0-4); Hematocrit 42.6 % (42.0-52.0); Hemoglobin 14.6 g/dl (14.0-18.0); Imm Gran Abs Auto 0.02 X10*3/uL (0.00-0.03); Imm Gran Pct Auto 0.3 % (0.0-0.4); Lymphocytes Absolute Auto 1.4 X10*3/uL (1.2-4.9); Lymphocytes Percent Auto 19.9 % (20-40); Mean Corpuscular HGB Conc 34.3 g/dl (31.0-36.0); Mean Corpuscular Hemoglobin 30.2 pg (27.0-33.0); Mean Platelet Volume 10.6 fL (9.4-12.4); Monocytes Absolute Auto 0.8 X10*3/uL (0.1-1.2); Monocytes Percent Auto 10.9 % (2-11); Neutrophils Absolute Auto 4.6 x10*3/uL (2.0-8.3); Neutrophils Percent Auto 64.7 % (45-73); Platelet Count 237 X10*3/uL (160-400); Red Blood Count 4.84 X10*6/uL (4.60-5.80); Red Cell Distribution Width 14.1 % (11.0-16.0); White Blood Count 7.1 X10*3/uL (4.8-10.8)
[2024-04-30 11:25] LABS: Appearance Urine Clear; Color Urine Yellow; Glucose Urine UA 500 mg/dL (Negative); Leukocyte Esterase Urine Moderate (2+) (Negative); Nitrite Urine Negative (Negative); PH 5.5 (5.0-9.0); UMIC TRIGGER UA YES; Urine Blood Trace (Negative); Urine Ketones Negative (Negative); Urine Protein Negative (Neg-Trace)
[2024-04-30 11:28] LABS: Bacteria Urine None Seen (None Seen); Hyaline Casts Urine 0-2 /LPF (0-2); Squamous Epithelial Cell Urine 0-2 /HPF (0-2)
[2024-04-30 11:45] LABS: Alanine Aminotransferase 37 U/L (0-40); Alkaline Phosphatase 79 U/L (39-117); Anion Gap 14 (12-20); Aspartate Amino Transferase 24 U/L (5-37); Bilirubin Total 0.7 mg/dL (0.0-1.0); Blood Urea Nitrogen 24 mg/dL (9-16); Carbon Dioxide 22 mmol/L (22-29); Chloride 109 mmol/L (96-108); Cholesterol 103 mg/dL (<200); Estimated Glomerular Filt Rate > 60; Glucose Fasting 129 mg/dL (60-99); HDL Cholesterol 29 mg/dL (>40); LDL Cholesterol Calculated 45 mg/dL (<100); Potassium 4.3 mmol/L (3.3-5.1); Sodium 141 mmol/L (135-145); Total Protein 6.7 g/dL (6.5-8.0); Triglycerides 147 mg/dL (<150)
[2024-04-30 12:02] LABS: TSH reflex Free T4 1.53 uIU/mL (0.32-4.0)
[2024-04-30 12:03] LABS: Creatinine Urine 19.93 mg/dL; Microalbum/Creatinine Ratio Ur 30.1 ug/mg cr (<30)
[2024-04-30 12:31] LABS: Prostate Specific Antigen Scr 0.12 ng/mL (<0.05-4.0)
== END 2024-04-30 09:13 | disposition home or self-care (01) ==
LOC: HO.WFDLDS 09:12
PROVIDERS: Visit Provider Family Medicine
DX: Z00.00 Encounter for general adult medical examination without abnormal findings (principal); I10 Essential (primary) hypertension; Z12.5 Encounter for screening for malignant neoplasm of prostate
CPT/HCPCS: 36415; 80053; 80061; 81001; 82043; 82570; 84153; 84443; 85025

== ENCOUNTER 2024-05-04 08:47 | Outpatient (AMB) | payer MEDICARE, SELFPAY ==
[2024-05-04 09:01] VITALS: BP 116/80; PULSE 83; RESP 15; TEMP 36.4; O2SAT 98; BMI 30.9
--- NOTE | 2024-05-04 09:01 | A.OFFPC_ITS ---
Vital Signs 05/04/24 09:01 Height 5 ft 4 in Weight 180 lb 2 oz BMI 30.9 BP 116/80 Blood Pressure Location Rt brachial Position Sitting Respiration 15 Pulse 83 Pulse Source Pulse Oximeter Temp 97.6 F Temp Source Temporal Artery Scan Pulse Oximetry (%) 98 Oxygen Delivery Method Room Air Intake Visit Reasons: Annual Physical - see comment Intake Note: Patient does not have any concerns at this time. 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 Accompanied by: Self / Same As Patient Allergies No Known Allergies Allergy (Verified 05/04/24 09:06) Medication List - Last Reconciled 05/04/24 by Angel Gooden MD apixaban (Eliquis) 5 mg PO BID 90 days atorvastatin 80 mg PO BEDTIME 90 days benzonatate 200 mg PO BID PRN carvedilol 12.5 mg PO BID 90 days dapagliflozin propanediol (Farxiga) 10 mg PO DAILY digoxin 125 mcg PO DAILY dulaglutide 1.5 mg (0.5 mL) subcut QWEEK 28 days ezetimibe 10 mg PO DAILY furosemide 40 mg PO DAILY 90 days glipizide 10 mg PO BID 90 days losartan 25 mg PO DAILY 90 days metformin 500 mg PO BID 90 days Tobacco use date assessed: 05/04/24 Fall risk assessment: No Falls in past year Last assessed Fall Risk: 05/04/24 Dental Screening Dental Screen Date: 05/04/24 Did you have a dental visit in the last 12 months?: No Did you have a dental problem in the last 6 months where you did not have access to dental care?: No Was dental information given to patient?: Patient has dentist HPI Annual Physical - see comment HPI Details 78 y/o male presents for a CPE with f/u labs and health maintenance. Labs were drawn 04/30/24. Reviewed labs with pt. Fasting glucose of 129. Last A1c 01/16/24 7.7%. A1c today 7.0%. Triglycerides 147. TC 103. LDL 45. HDL low at 29. He is on artovastatin 80mg. [facility] Medical History Afib History of colonic polyps [facility] current use of anticoagulant DVT (deep venous thrombosis) Osteoarthritis of right knee Hyperlipidemia CAD (coronary artery disease) Essential hypertension Diabetes type 2, controlled Surgical History Stented coronary artery Status post phlebectomy (~2019) History of cardioversion Hx of colonoscopy Family History Father No problems noted. Mother No problems noted. Social History Household Members: Spouse Housing: House Are you a primary skin care technician to a significant other at home: No Do you presently have visiting nurse or other home services: No Alcohol intake: current Alcohol intake frequency: holidays/special occasions only Patient Tobacco Use Status: Never used Tobacco e-Cigarette/Vaping Use: Never Used Second Hand Smoke Exposure: No service: No Current occupational status: retired Current occupational exposures/hazards: No Cognitive needs: No Hearing needs: No Vision needs: Yes (Glasses) Questionnaire PHQ-9 Over the last 2 weeks, how often have you been bothered by any of the following problems? 1. Little interest or pleasure in doing things: not at all 2. Feeling down, depressed, or hopeless: not at all 3. Trouble falling or staying asleep, or sleeping too much: not at all 4. Feeling tired or having little energy: not at all 5. Poor appetite or overeating: not at all 6. Feeling bad about yourself - or that you are a failure or have let yourself or your family down: not at all 7. Trouble concentrating on things, such as reading the newspaper or watching television: not at all 8. Moving or speaking so slowly that other people could have noticed. Or the opposite - being so fidgety or restless that you have been moving around a lot more than usual: not at all 9. Thoughts that you would be better off or of hurting yourself in some way: not at all Total score: 0 Depression Screening Interpretation: Negative Depression Screening Done: Yes 50400 - PHQ-9 Billing: Yes Source: Developed by Drs. Carrington Nielsen, Stephanie Villarreal, Stephen Sotelo and colleagues, with an educational augie from [email or web address]. Thrive Questionnaire Date Thrive assessed: 05/04/24 I am a: Patient What is your living situation today?: I have a steady place to live Within the past 12 months, did the food you bought not last and you didn't have the money to get more?: Never true Within the past 12 months, did you worry whether your food would run out before you got money to buy more?: Never true Do you have trouble paying for medicines?: No Do you have trouble getting transportation to medical appointments?: No Do you have trouble paying your heating and electricity bill?: No Do you have trouble taking care of your child, family member or friend?: No Do you have trouble with day-to-day activities such as bathing, preparing meals, shopping, managing finances, etc.?: No Are you currently unemployed and looking for a job?: No Are you interested in more education?: No Please select the resources that you would like help with: None Currently or been in a relationship where the following occur: No concerns reported THRIVE Score: 0 AUDIT C Alcohol Use Questionnaire (AUDIT-C) 1. How often do you have a drink containing alcohol?: Never 3. How often do you have six or more drinks on one occasion?: Never Total Score: 0 NE-7 AMB Questionnaire NE-7 Date NE - 7 assessed: 05/04/24 Feeling nervous, anxious, or on edge: 0 = Not at all Not being able to stop or control worryin = Not at all Worrying too much about different things: 0 = Not at all Trouble relaxin = Not at all Being so restless that it is hard to sit still: 0 = Not at all Becoming easily annoyed or irritable: 0 = Not at all Feeling afraid as if something awful might happen: 0 = Not at all Total NE-7 score (0-4 normal; 5-9 mild; 10-14 moderate; 15-21 severe): 0 Source: Developed by Drs. Carrington Nielsen, Stephanie Villarreal, Stephen Sotelo and colleagues, with an educational augie from [email or web address]. NE-7 Assessment Billing NE-7 Assessment Tool: NE-7 Assessment 84035 Review of Systems Const Denies chills, Denies fatigue, Denies fever(s), Denies headache(s) and Denies weakness Eyes Denies change in vision ENT Denies dizziness, Denies headache(s), Denies hearing loss, Denies nasal congestion, Denies sinus pain, Denies sinus pressure and Denies sore throat Card Denies chest pain, Denies lightheadedness, Denies dyspnea and Denies other (palpitations) Resp Denies cough, Denies dyspnea and Denies wheezing GI Denies abdominal pain, Denies melena, Denies hematochezia, Denies change in bowel habits, Denies dyspepsia and Denies nausea Denies hematuria and Denies dysuria Musc Denies abnormal gait, Denies myalgias, Denies arthralgias, Denies numbness and Denies tingling Skin/Breast Denies rash, Denies unusual bruising and Denies wounds Neuro Denies abnormal gait, Denies dizziness, Denies headache(s), Denies memory loss, Denies numbness, Denies Sensory deficit (Neuro), Denies tingling and Denies weakness Psych Denies anxiety, Denies depression and Denies memory loss Endo Denies cold intolerance, Denies fatigue, Denies heat intolerance, Denies polydipsia and Denies polyuria Rufus/Lymph Denies easy bleeding and Denies easy bruising Aller/Immun Denies wheezing Physical exam (Primary Care) Vital Signs: Last Vital Signs Temp 97.6 F 05/04/24 09:01 Pulse 83 05/04/24 09:01 Resp 15 05/04/24 09:01 BP 116/80 05/04/24 09:01 Pulse Ox 98 05/04/24 09:01 Oxygen Delivery Method Room Air 05/04/24 09:01 BMI result Body Mass Index 30.9 Tobacco/Smoking Status: Tobacco use Status Tobacco use date assessed 05/04/24 05/04/24 09:08 Patient Tobacco Use Status Never used Tobacco 05/04/24 09:01 e-Cigarette/Vaping Use Never Used 05/04/24 09:01 PHQ-9: PHQ-9 Score PHQ-9: Total score 0 05/04/24 09:25 Depression Screening Interpretation: Negative Thrive Assessment: Date of Thrive Assessment Date Thrive assessed 05/04/24 05/04/24 09:09 Currently or been in a relationship where the following occur: No concerns reported Const General: no acute distress, well developed, alert and awake Nutritional Appearance: well nourished Orientation/consciousness: patient oriented x3 HENMT Head: Yes normocephalic and Yes atraumatic Ears: hearing grossly normal bilaterally and TM's normal bilaterally General nose exam: Normal external nose present and Normal nares present Mouth: Normal oral and palatal mucosa present and moist mucous membranes Teeth and gingiva: dentition normal Throat: Yes posterior oropharynx normal Eyes General: appearance normal, both eyes and all related structures Pupils: Equal, round and reactive pupils present and Pupil accommodation reflex normal EOM: EOMs intact bilaterally Neck Neck: Yes normal visual inspection, Yes no lymphadenopathy and Yes trachea midline Thyroid: Thyroid normal Carotids: no bruits Lymphatic: no lymphadenopathy noted Chest Chest palpation & inspection: normal inspection of the chest Resp Effort & Inspection: normal respiratory effort Auscultation: clear to auscultation bilaterally Cardio Rate: regular rate Rhythm: regular rhythm Heart sounds: S1 normal heart sound present, S2 normal heart sound present, no gallops, no murmurs and no rubs Bruits: no abdominal aortic bruits and no carotid bruits GI Palpation (GI): No Abdominal aortic bruit present, Soft to palpation, nontender, No hepatosplenomegaly present and No Rebound tenderness present Auscultation: normal bowel sounds General: Yes no CVA tenderness Back/Spine/Pelvis Back: no CVA tenderness Cervical Spine: cervical ROM normal and No Cervical spine tenderness Thoracic/Lumbar Spine: thoraco-lumbar ROM normal, No pain with thoraco-lumbar ROM, No thoracic spinal tenderness and No lumbar spinal tenderness Skin Lesions: no lesions Rashes: no rashes Trauma: no lacerations or abrasions Wounds: no wounds Nails: normal Neuro General: patient oriented x3 Cranial nerves: Yes Equal, round and reactive pupils present Cognition (Neuro): normal cognition Gait exam (Neuro): Normal gait present Motor exam (neuro): 5/5 motor strength present throughout Sensory Exam: No Sensory deficit (Neuro) Deep tendon reflexes (DTR's): Right patellar reflex intensity grade: 2+ and Left patellar reflex intensity grade: 2+ Extrem General: Yes normal to inspection and No edema Psych Appearance: grossly normal Affect: normal affect Attitude: cooperative Thought process: Normal thought process present Results AMB Hemoglobin A1c AMB Hemoglobin A1c 7.0 % Last Edit by LESLIE Thomas on 05/04/24 09:2 8 Results Reviewed Results Reviewed: Laboratory Last Values Hgb A1c (Clinic) 7.0 % (4.0-6.0) H 05/04/24 09:27 Assessment and Plan Assessment & Plan (1) Adult general medical exam: Code(s): Z00.00 - Encounter for general adult medical examination without abnormal findings Plan: 78-year-old?male?presents?for?complete?physical?exam Encouraged?healthy?diet?with?active?lifestyle?and?plenty?of?exercise (2) Diabetes type 2, controlled: Code(s): E11.9 - Type 2 diabetes mellitus without complications Plan: A1c?7.0%?is?good?control?for?a?78-year-old?male.??Goal?is?7.0%?or?lower Continue?current?medication?regimen. However,?Trulicity?is?very?expensive (as?is?Farxiga). W ill?ask?the?office?to?look?in?to?alternative?medications?better?covered?by?his?i nsurance?such?as?Ozempic,?Wegovy?or?Mounjaro. (3) Hyperlipidemia: Code(s): E78.5 - Hyperlipidemia, unspecified Plan: LDL?cholesterol?is?well?controlled?on?atorvastatin. HDL?is?significantly?low.??He?is?already?exercising?frequently?every?day Encouraged?diet?with?[place]?3?fatty?acids Continue?to?keep?LDL?low (4) Hypertension: Code(s): I10 - Essential (primary) hypertension Plan: Blood?pressure?is?well?controlled.??Goal?is?less?than?130/80 Continue?current?medications (5) Screening for prostate cancer: Code(s): Z12.5 - Encounter for screening for malignant neoplasm of prostate Plan: PSA?is?within?normal?range Continue?annual?screening (6) Screening for colon cancer: Code(s): Z12.11 - Encounter for screening for malignant neoplasm of colon Plan: Patient?had?a?colonoscopy?at?age?74.??He?was?told?he?no?longer?needs?colonoscopi es. He?will?let?me?know?if?he?has?any?GI?probl ems?or?bleeding?per?rectum/blood?in?stools?? (7) Hematuria: Code(s): R31.9 - Hematuria, unspecified Plan: Recheck?urinalysis & will check urine cytology Orders: Orders AMB Hemoglobin A1c Today E11.9 - Type 2 diabetes mellitus without complications UA and rflx microscopic Today R31.9 - Hematuria, unspecified, Z00.00 - Encounter for general adult medical examination without abnormal findings Urine Cytology Today R31.9 - Hematuria, unspecified Coding Level of Care Code Est Pt Level 3 (32695) Est Pt Prev Care >65y(89877) Diagnoses Adult general medical exam Z00.00 Diabetes type 2, controlled E11.9 Hyperlipidemia E78.5 Hypertension I10 Screening for prostate cancer Z12.5 Screening for colon cancer Z12.11 Hematuria R31.9 Additional Codes NE-7 Assessment Billing - NE-7 Assessment Tool: NE-7 Assessment [id number] ([id number])
== END 2024-05-04 10:12 | disposition home or self-care (01) ==
PROVIDERS: PCP Family Medicine; Visit Provider Family Medicine
DX: Z00.00 Encounter for general adult medical examination without abnormal findings (principal); E11.69 Type 2 diabetes mellitus with other specified complication; E78.5 Hyperlipidemia, unspecified; I10 Essential (primary) hypertension; R31.9 Hematuria, unspecified; Z12.5 Encounter for screening for malignant neoplasm of prostate; Z12.11 Encounter for screening for malignant neoplasm of colon
CPT/HCPCS: 83036; 99397

== ENCOUNTER 2024-05-04 16:01 | Outpatient (REF) | payer MEDICARE, SELFPAY ==
[2024-05-04 17:38] LABS: Urine Cytology See Pathology rpt
[2024-05-04 17:53] LABS: Appearance Urine Clear; Color Urine Yellow; Glucose Urine UA >=1000 mg/dL (Negative); Leukocyte Esterase Urine Small (1+) (Negative); Nitrite Urine Negative (Negative); UMIC TRIGGER UA YES; Urine Blood Negative (Negative); Urine Ketones Negative (Negative); Urine Protein Negative (Neg-Trace)
[2024-05-04 18:14] LABS: Bacteria Urine None Seen (None Seen); Hyaline Casts Urine 0-2 /LPF (0-2); RBC Urine 0-2 /HPF (0-2); Squamous Epithelial Cell Urine 0-2 /HPF (0-2)
== END 2024-05-04 16:02 | disposition home or self-care (01) ==
LOC: HO.LAB 16:01
PROVIDERS: Visit Provider Family Medicine
DX: Z00.00 Encounter for general adult medical examination without abnormal findings (principal); R31.9 Hematuria, unspecified
CPT/HCPCS: 81001; 88112

== ENCOUNTER 2024-08-01 10:26 | Outpatient (REF) | payer MEDICARE, SELFPAY | END 2024-08-01 10:27 | disposition home or self-care (01) | LOC: HO.LAB 10:26 | PROVIDERS: PCP Family Medicine; Visit Provider Family Medicine | DX: R05.9 Cough, unspecified (principal) | CPT/HCPCS: 99212 ==

== ENCOUNTER 2024-08-01 10:26 | Outpatient (AMB) | payer MEDICARE, SELFPAY ==
--- NOTE | 2024-08-01 10:57 | MHC.PC.OV ---
Vital Signs 08/01/24 11:00 Height 5 ft 4 in Weight 177 lb 8 oz BMI 30.5 BP 127/58 L Blood Pressure Location Rt brachial Position Sitting Respiration 16 Pulse 86 Pulse Source Pulse Oximeter Temp 97.3 F Temp Source Temporal Artery Scan Pulse Oximetry (%) 98 Oxygen Delivery Method Room Air Intake Visit Reasons: est/persistent cough Intake Note: cough x7days Allergies No Known Allergies Allergy (Verified 08/01/24 10:58) Medication List - Last Reconciled 08/01/24 by Angel Gooden MD apixaban (Eliquis) 5 mg PO BID 90 days atorvastatin 80 mg PO BEDTIME 90 days benzonatate 200 mg PO BID PRN carvedilol 12.5 mg PO BID 90 days dapagliflozin propanediol (Farxiga) 10 mg PO DAILY digoxin 125 mcg PO DAILY dulaglutide 1.5 mg (0.5 mL) subcut QWEEK 28 days ezetimibe 10 mg PO DAILY furosemide 40 mg PO DAILY 90 days glipizide 10 mg PO BID 90 days losartan 25 mg PO DAILY 90 days metformin 500 mg PO BID 90 days Tobacco use date assessed: 05/04/24 Dental Screening Dental Screen Date: 05/04/24 HPI est/persistent cough HPI Details 79 y/o male presents today with complaints of a cough. Denies any fevers/chills/nasal congestion. Feels well otherwise. Hx of CHF. Denies weight gain or edema. 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 Mother No problems noted. Social History Household Members: Spouse Housing: House Are you a primary direct care specialist to a significant other at home: No Do you presently have visiting nurse or other home services: No Alcohol intake: current Alcohol intake frequency: holidays/special occasions only Patient Tobacco Use Status: Never used Tobacco e-Cigarette/Vaping Use: Never Used Second Hand Smoke Exposure: No service: No Current occupational status: retired Current occupational exposures/hazards: No Cognitive needs: No Hearing needs: No Vision needs: Yes (Glasses) Questionnaire Thrive Questionnaire Date Thrive assessed: 05/04/24 Please select the resources that you would like help with: Housing/Retirement NE-7 AMB Questionnaire NE-7 Date NE - 7 assessed: 05/04/24 Source: Developed by Drs. Carrington Nielsen, Stephanie Villarreal, Stephen Sotelo and colleagues, with an educational augie from [employer] Review of Systems Const Denies chills, Denies fatigue, Denies fever(s), Denies headache(s) and Denies weakness ENT Denies dizziness and Denies headache(s) Card Denies chest pain, Denies lightheadedness, Denies dyspnea and Denies other (Palpitations) Resp Denies cough, Denies dyspnea, Denies wheezing and Denies other ( shortness of breath) Musc Denies numbness and Denies tingling Neuro Denies dizziness, Denies headache(s), Denies numbness, Denies tingling, Denies paresthesias and Denies weakness Psych Denies anxiety and Denies depression Endo Denies fatigue Aller/Immun Denies wheezing Physical exam (Primary Care) Vital Signs: Last Vital Signs Temp 97.3 F 08/01/24 11:00 Pulse 86 08/01/24 11:00 Resp 16 08/01/24 11:00 BP 127/58 L 08/01/24 11:00 Pulse Ox 98 08/01/24 11:00 Oxygen Delivery Method Room Air 08/01/24 11:00 BMI result Body Mass Index 30.5 Tobacco/Smoking Status: Tobacco use Status Tobacco use date assessed 05/04/24 08/01/24 11:03 Patient Tobacco Use Status Never used Tobacco 08/01/24 11:03 e-Cigarette/Vaping Use Never Used 08/01/24 11:03 Thrive Assessment: Date of Thrive Assessment Date Thrive assessed 05/04/24 08/01/24 11:03 Const General: no acute distress and well developed Nutritional Appearance: well nourished Orientation/consciousness: patient oriented x3 HENMT Head: Yes normocephalic and Yes atraumatic Eyes General: appearance normal, both eyes and all related structures Pupils: Equal, round and reactive pupils present EOM: EOMs intact bilaterally Resp Other: Slightly diminished breath sounds at R base Effort & Inspection: normal respiratory effort Auscultation: not clear to auscultation bilaterally Cardio Rate: regular rate Rhythm: regular rhythm Heart sounds: S1 normal heart sound present, S2 normal heart sound present, no gallops, no murmurs and no rubs Neuro General: patient oriented x3 and gait normal Cranial nerves: Yes Equal, round and reactive pupils present Psych Affect: normal affect Coding Level of Care Code Est Pt Level 3 (14534) Diagnoses Cough R05.9 Assessment & Plan Assessment & Plan (1) Cough: Code(s): R05.9 - Cough, unspecified Category: Medical Plan: Ears?as?most?likely?bronchitis. However?does?have ???Slightly?diminished?breath?sounds?at?right?base.??Can?not?rule?out?pneumonia. Starting?patient?on?Z-Liu?and?prednisone. Chest?x-ray?is?ordered. Checking?BMP?and?CBC Patient?also?has?a?history?of?congestive?heart?failure. Denies?weight?gain?or?edema. Checking?BNP Lastly,?can?not?rule?out?viral?infection?such?as?COVID/flu/RSV - sending?nasal?swab?to?the?lab Advised?patient?to?call?or?return?to?office?if?not?improving?or?if?worsens Orders: Orders SARS-CoV2/FLU/RSV Today R05.9 - Cough, unspecified, Z20.822 - Contact with and (suspected) exposure to COVID-19 Complete Blood Count Auto Diff Today R05.9 - Cough, unspecified, Z00.00 - Encounter for general adult medical examination without abnormal findings B Type Natriuretic Peptide Today I50.9 - Heart failure, unspecified XR chest 2V Today I50.9 - Heart failure, unspecified Basic Metabolic Panel Today R05.9 - Cough, unspecified, Z00.00 - Encounter for general adult medical examination without abnormal findings Medications: New azithromycin (Zithromax Z-Liu) take 500 mg today (day 1), then 250 mg for 4 days (days 2-5) PO 5 days 6 tabs 0RF prednisone 4 tabs daily for 4 days, 3 tabs daily for 2 days, 2 tabs daily for 2 days, 1 tab daily for 2 days PO daily; 10 days 28 tabs 0RF Refilled ezetimibe 10 mg PO DAILY 90 tabs 3RF
[2024-08-01 11:00] VITALS: BP 127/58; PULSE 86; RESP 16; TEMP 36.3; O2SAT 98; BMI 30.5
== END 2024-08-01 11:37 | disposition home or self-care (01) ==
PROVIDERS: PCP Family Medicine; Visit Provider Family Medicine
DX: R05.9 Cough, unspecified (principal)

== ENCOUNTER 2024-08-01 11:53 | Outpatient (REF) | payer MEDICARE, SELFPAY ==
[2024-08-01 14:14] LABS: MANUAL DIFF FLAG NO
[2024-08-01 14:27] LABS: Basophils Absolute Auto 0.1 X10*3/uL (0.0-0.2); Basophils Percent Auto 0.9 % (0-2); Eosinophils Absolute Auto 0.3 X10*3/uL (0.0-0.4); Eosinophils Percent Auto 2.9 % (0-4); Hematocrit 44.5 % (42.0-52.0); Hemoglobin 15.2 g/dl (14.0-18.0); Imm Gran Abs Auto 0.03 X10*3/uL (0.00-0.03); Imm Gran Pct Auto 0.3 % (0.0-0.4); Lymphocytes Absolute Auto 1.9 X10*3/uL (1.2-4.9); Lymphocytes Percent Auto 21.9 % (20-40); Mean Corpuscular HGB Conc 34.2 g/dl (31.0-36.0); Mean Corpuscular Hemoglobin 30.3 pg (27.0-33.0); Mean Corpuscular Volume 88.8 fL (80.0-98.0); Mean Platelet Volume 10.5 fL (9.4-12.4); Monocytes Absolute Auto 1.1 X10*3/uL (0.1-1.2); Monocytes Percent Auto 12.1 % (2-11); Neutrophils Absolute Auto 5.5 x10*3/uL (2.0-8.3); Neutrophils Percent Auto 61.9 % (45-73); Platelet Count 258 X10*3/uL (160-400); Red Blood Count 5.01 X10*6/uL (4.60-5.80); Red Cell Distribution Width 13.3 % (11.0-16.0); White Blood Count 8.8 X10*3/uL (4.8-10.8)
[2024-08-01 14:44] LABS: Anion Gap 14 (12-20); Blood Urea Nitrogen 24 mg/dL (9-16); Calcium 9.4 mg/dL (8.4-10.2); Carbon Dioxide 25 mmol/L (22-29); Chloride 108 mmol/L (96-108); Estimated Glomerular Filt Rate 58; Glucose Random 105 mg/dL (60-115); Potassium 4.6 mmol/L (3.3-5.1); Sodium 142 mmol/L (135-145)
[2024-08-01 15:20] LABS: Influenza A PCR NEGATIVE (Negative); Influenza B PCR NEGATIVE (Negative); Resp Syncy Virus RNA Qual PCR NEGATIVE (Negative); SARS COV2 PCR INHOUSE NEGATIVE (Negative)
== END 2024-08-01 11:54 | disposition home or self-care (01) ==
LOC: HO.WFDLDS 11:53
PROVIDERS: Visit Provider Family Medicine
DX: Z00.00 Encounter for general adult medical examination without abnormal findings (principal); R05.9 Cough, unspecified; Z20.822 Contact with and (suspected) exposure to COVID-19
CPT/HCPCS: 0241U; 36415; 80048; 83880; 85025

== ENCOUNTER 2024-08-02 15:12 | Outpatient (REF) | payer MEDICARE, SELFPAY ==
[2024-08-02 18:43] LABS: B Type Natriuretic Peptide 81 pg/mL (<100)
== END 2024-08-02 15:13 | disposition home or self-care (01) ==
LOC: HO.WFDLDS 15:12
PROVIDERS: Visit Provider Family Medicine
DX: I50.9 Heart failure, unspecified (principal)
CPT/HCPCS: 36415; 83880

== ENCOUNTER 2024-08-16 14:12 | Outpatient (AMB) | payer MEDICARE, SELFPAY ==
--- NOTE | 2024-08-16 14:17 | A.OFFPC_ITS ---
Vital Signs 08/16/24 14:31 Height 5 ft 4 in Weight 176 lb 8 oz BMI 30.3 BP 135/85 Blood Pressure Location Lt brachial Position Sitting Respiration 16 Pulse 84 Pulse Source Pulse Oximeter Temp 96.6 F L Temp Source Temporal Artery Scan Pulse Oximetry (%) 98 Oxygen Delivery Method Room Air Intake Visit Reasons: 3 month F/U Intake Note: 3 month f/u DM and htn bnp was 81 Allergies No Known Allergies Allergy (Verified 08/16/24 14:26) Tobacco use date assessed: 05/04/24 Dental Screening Dental Screen Date: 05/04/24 HPI 3 month F/U HPI Details 79 y/o male presents to f/u hypertension , diabetes. Last A1c 05/04/24 7.0%. A1c today 08/16/24 is 7.3%. He is on glipizide 10mg b.i.d, metformin 500mg b.i.d, dulaglutide 1.5mg, Farxiga 10mg. Blood pressure today 135/85, 84p. He is on losartan 25mg, carvedilol 12.5mg b.i.d. Notes cough has improved. [facility] Medical History Afib History of colonic polyps half-way current use of anticoagulant DVT (deep venous thrombosis) Osteoarthritis of right knee Hyperlipidemia CAD (coronary artery disease) Essential hypertension Diabetes type 2, controlled Surgical History Stented coronary artery Status post phlebectomy (~2019) History of cardioversion Hx of colonoscopy Family History Father No problems noted. Mother No problems noted. Social History Household Members: Spouse Housing: House Are you a primary behavioral health care manager to a significant other at home: No Do you presently have visiting nurse or other home services: No Alcohol intake: current Alcohol intake frequency: holidays/special occasions only Patient Tobacco Use Status: Never used Tobacco e-Cigarette/Vaping Use: Never Used Second Hand Smoke Exposure: No service: No Current occupational status: retired Current occupational exposures/hazards: No Cognitive needs: No Hearing needs: No Vision needs: Yes (Glasses) Questionnaire Thrive Questionnaire Date Thrive assessed: 08/09/24 I am a: Patient What is your living situation today?: I choose not to answer this question Within the past 12 months, did the food you bought not last and you didn't have the money to get more?: I choose not to answer this question Within the past 12 months, did you worry whether your food would run out before you got money to buy more?: I choose not to answer this question Do you have trouble paying for medicines?: I choose not to answer this question Do you have trouble getting transportation to medical appointments?: No Do you have trouble paying your heating and electricity bill?: I choose not to answer this question Do you have trouble taking care of your child, family member or friend?: I choose not to answer this question Do you have trouble with day-to-day activities such as bathing, preparing meals, shopping, managing finances, etc.?: No Are you currently unemployed and looking for a job?: No Are you interested in more education?: No Please select the resources that you would like help with: Housing/Nursing Home THRIVE Score: 0 NE-7 AMB Questionnaire NE-7 Date NE - 7 assessed: 05/04/24 Source: Developed by Drs. Carrington Nielsen, Stephanie Villarreal, Stephen Sotelo and colleagues, with an educational augie from [employer]. Review of Systems Const Denies chills, Denies fatigue, Denies fever(s), Denies headache(s) and Denies weakness ENT Denies dizziness and Denies headache(s) Card Denies chest pain, Denies lightheadedness, Denies dyspnea and Denies other (Palpitations) Resp Denies cough, Denies dyspnea, Denies wheezing and Denies other ( shortness of breath) Musc Denies numbness and Denies tingling Neuro Denies dizziness, Denies headache(s), Denies numbness, Denies tingling, Denies paresthesias and Denies weakness Psych Denies anxiety and Denies depression Endo Denies fatigue Aller/Immun Denies wheezing Physical exam (Primary Care) Vital Signs: Last Vital Signs Temp 96.6 F L 08/16/24 14:31 Pulse 84 08/16/24 14:31 Resp 16 08/16/24 14:31 BP 135/85 08/16/24 14:31 Pulse Ox 98 08/16/24 14:31 Oxygen Delivery Method Room Air 08/16/24 14:31 BMI result Body Mass Index 30.3 Tobacco/Smoking Status: Tobacco use Status Tobacco use date assessed 05/04/24 08/16/24 14:17 Patient Tobacco Use Status Never used Tobacco 08/16/24 14:17 e-Cigarette/Vaping Use Never Used 08/16/24 14:17 Thrive Assessment: Date of Thrive Assessment Date Thrive assessed 08/09/24 08/16/24 14:17 Const General: no acute distress and well developed Nutritional Appearance: well nourished Orientation/consciousness: patient oriented x3 HENMT Head: Yes normocephalic and Yes atraumatic Eyes General: appearance normal, both eyes and all related structures Pupils: Equal, round and reactive pupils present EOM: EOMs intact bilaterally Resp Effort & Inspection: normal respiratory effort Auscultation: clear to auscultation bilaterally Cardio Rate: regular rate Rhythm: abnormal rhythm irregularly irregular Heart sounds: S1 normal heart sound present, S2 normal heart sound present, no gallops, no murmurs and no rubs Neuro General: patient oriented x3 and gait normal Cranial nerves: Yes Equal, round and reactive pupils present Psych Affect: normal affect Coding Level of Care Code Est Pt Level 4 (46279) Diagnoses Diabetes type 2, controlled E11.9 Hypertension I10 Hematuria R31.9 Cough R05.9 Assessment & Plan Assessment & Plan (1) Diabetes type 2, controlled: Code(s): E11.9 - Type 2 diabetes mellitus without complications Category: Medical Plan: A1c?climbed?to?7.3%.??Goal?is?less?than?7% Continue?current?medica tion?regimen?except?will?increase?Trulicity?from?1.5?mg?weekly?to?3.0?mg?weekly He?will?work?on?lifestyle?changes?as?well (2) Hypertension: Code(s): I10 - Essential (primary) hypertension Category: Medical Plan: Blood?pressure?is?a?little?high?for? patient?with?coronary?artery?disease.??Goal?is?less?than?130/80 Increase?losartan?from?25?mg?daily?to?50?mg?daily (3) Hematuria: Code(s): R31.9 - Hematuria, unspecified Category: Medical Plan: Urine?cytology?did?not?show?any?atypical?cells?but?did?show?inflammation. He?also?had?glucose?in?urine Increase?hydration.??Will?continue?to?work?at?blood?sugar?control Will?recheck?this?short (4) Cough: Code(s): R05.9 - Cough, unspecified Category: Medical Plan: Patient?was?treated?with?a?Z-Liu?at?las t?visit?and?says?cough?resolved?within?a?few?days?so?he?did?not?get?chest?x-ray. Had?also?checked?a?BNP?because?he?has?a?history?of?CHF?but?BNP?was?81; no?fluid?overload Cough?has?resolved Medications: Changed From dapagliflozin propanediol (Farxiga) 10 mg PO DAILY 30 tabs 2RF To dapagliflozin propanediol (Farxiga) 10 mg PO DAILY 90 days 90 tabs 3RF From losartan 25 mg PO DAILY 90 days 90 tabs 3RF To losartan 50 mg PO DAILY 90 days 90 tabs 3RF From dulaglutide 1.5 mg (0.5 mL) subcut QWEEK 28 days 2 mL 2RF To dulaglutide 3 mg (0.5 mL) subcut QWEEK 84 days 6 mL 2RF
[2024-08-16 14:31] VITALS: BP 135/85; PULSE 84; RESP 16; TEMP 35.9; O2SAT 98; BMI 30.3
== END 2024-08-16 14:55 | disposition home or self-care (01) ==
LOC: HO.HMCFM 14:13
PROVIDERS: PCP Family Medicine; Visit Provider Family Medicine
DX: E11.9 Type 2 diabetes mellitus without complications (principal); I10 Essential (primary) hypertension; R31.9 Hematuria, unspecified; R05.9 Cough, unspecified

== ENCOUNTER → 2024-08-16 14:12 | Outpatient (BNVA) | payer MEDICARE, SELFPAY | PROVIDERS: PCP Family Medicine; Visit Provider Family Medicine | DX: E11.9 Type 2 diabetes mellitus without complications (principal); R31.9 Hematuria, unspecified; R05.9 Cough, unspecified; I10 Essential (primary) hypertension | CPT/HCPCS: 83036; 99212 ==

== ENCOUNTER 2024-11-21 09:22 | Outpatient (REF) | payer MEDICARE, SELFPAY ==
[2024-11-21 11:35] LABS: Anion Gap 14 (12-20); Blood Urea Nitrogen 27 mg/dL (9-16); Calcium 9.9 mg/dL (8.4-10.2); Carbon Dioxide 25 mmol/L (22-29); Chloride 106 mmol/L (96-108); Estimated Glomerular Filt Rate > 60; Glucose Random 153 mg/dL (60-115); Potassium 4.7 mmol/L (3.3-5.1); Sodium 140 mmol/L (135-145)
[2024-11-21 11:36] LABS: Digoxin 0.7 ng/mL (0.8-2.0)
== END 2024-11-21 09:23 | disposition home or self-care (01) ==
LOC: HO.LAB 09:22
PROVIDERS: PCP Family Medicine; Visit Provider Internal Medicine Cardiovascular Disease
DX: I48.20 Chronic atrial fibrillation, unspecified (principal); I25.10 Atherosclerotic heart disease of native coronary artery without angina pectoris; I50.9 Heart failure, unspecified; Z79.899 Other long term (current) drug therapy
CPT/HCPCS: 36415; 80048; 80162; 99212

== ENCOUNTER 2024-12-31 14:29 | Outpatient (AMB) | payer MEDICARE, SELFPAY ==
--- NOTE | 2024-12-31 14:40 | A.OFFPC_ITS ---
Vital Signs 12/31/24 14:49 Height 5 ft 4 in Weight 176 lb BMI 30.2 BP 110/70 Blood Pressure Location Rt brachial Position Sitting Respiration 12 Pulse 87 Pulse Source Pulse Oximeter Temp 97.3 F Temp Source Oral Pulse Oximetry (%) 99 Oxygen Delivery Method Room Air Intake Visit Reasons: f/u on meds - see comments Intake Note: follow up for med trulicity medication and DM follow Order Fulfillment Specialist Required: No Allergies No Known Allergies Allergy (Verified 12/31/24 14:47) Medication List - Last Reconciled 12/31/24 by Angel Gooden MD apixaban (Eliquis) 5 mg PO BID 90 days atorvastatin 80 mg PO BEDTIME 90 days carvedilol 12.5 mg PO BID 90 days dapagliflozin propanediol (Farxiga) 10 mg PO DAILY 90 days digoxin 125 mcg PO DAILY ezetimibe 10 mg PO DAILY furosemide 40 mg PO DAILY 90 days glipizide 10 mg PO BID 90 days insulin glargine (Lantus Solostar U-100 Insulin) 12 units (0.12 mL) subcut QPM 30 days losartan 50 mg PO DAILY 90 days metformin 500 mg PO BID 90 days pen needle, diabetic To treat blood sugar, daily As directed, 90 days Tobacco use date assessed: 05/04/24 Dental Screening Dental Screen Date: 05/04/24 HPI f/u on meds - see comments HPI Details 79 y/o male presents to f/u chronic cond itions. A1c today 7.8%. Prior A1c 7.3%. He is on metformin 500mg b.i.d, dulaglutide 3mg, Farxiga. He notes [employer] had been costing him hundreds of dollars a month and would like to trial something else. Blood pressure today 110/70, 87p. He is on losartan 50mg, carvedilol 12.5mg b.i.d. He notes he continues to exercise - walks 5000 steps a day. HPI Comments History of Present Illness Details Documentation assistance for Angel Gooden MD, was provided by [place] [employer],? [employer] on 12/31/2024 at 3:08 PM EST. I, Dr. Gooden, have read, observed, and verified documentation. 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 Mother No problems noted. Social History Household Members: Spouse Housing: House Are you a primary dialysis patient care technician to a significant other at home: No Do you presently have visiting nurse or other home services: No Alcohol intake: current Alcohol intake frequency: holidays/special occasions only Patient Tobacco Use Status: Never used Tobacco e-Cigarette/Vaping Use: Never Used Second Hand Smoke Exposure: No service: No Current occupational status: retired Current occupational exposures/hazards: No Cognitive needs: No Hearing needs: No Vision needs: Yes (Glasses) Questionnaire PHQ-9 Over the last 2 weeks, how often have you been bothered by any of the following problems? 1. Little interest or pleasure in doing things: not at all 2. Feeling down, depressed, or hopeless: not at all 3. Trouble falling or staying asleep, or sleeping too much: not at all 4. Feeling tired or having little energy: not at all 5. Poor appetite or overeating: not at all 6. Feeling bad about yourself - or that you are a failure or have let yourself or your family down: not at all 7. Trouble concentrating on things, such as reading the newspaper or watching television: not at all 8. Moving or speaking so slowly that other people could have noticed. Or the opposite - being so fidgety or restless that you have been moving around a lot more than usual: not at all 9. Thoughts that you would be better off or of hurting yourself in some way: not at all Total score: 0 Source: Developed by Drs. Carrington Nielsen, Stephanie Villarreal, Stephen Sotelo and colleagues, with an educational augie from [employer]. Thrive Questionnaire Date Thrive assessed: 12/24/24 I am a: Patient What is your living situation today?: I have a steady place to live Within the past 12 months, did the food you bought not last and you didn't have the money to get more?: Never true Within the past 12 months, did you worry whether your food would run out before you got money to buy more?: Never true Do you have trouble paying for medicines?: No Do you have trouble getting transportation to medical appointments?: Yes Do you have trouble paying your heating and electricity bill?: I choose not to answer this question Do you have trouble taking care of your child, family member or friend?: No Do you have trouble with day-to-day activities such as bathing, preparing meals, shopping, managing finances, etc.?: No Are you currently unemployed and looking for a job?: No Are you interested in more education?: No Please select the resources that you would like help with: None Currently or been in a relationship where the following occur: I choose not to answer THRIVE Score: 1 AUDIT C Alcohol Use Questionnaire (AUDIT-C) 1. How often do you have a drink containing alcohol?: Never Total Score: 0 NE-7 AMB Questionnaire NE-7 Date NE - 7 assessed: 05/04/24 Feeling nervous, anxious, or on edge: 0 = Not at all Not being able to stop or control worryin = Not at all Worrying too much about different things: 0 = Not at all Trouble relaxin = Not at all Being so restless that it is hard to sit still: 0 = Not at all Becoming easily annoyed or irritable: 0 = Not at all Feeling afraid as if something awful might happen: 0 = Not at all Total NE-7 score (0-4 normal; 5-9 mild; 10-14 moderate; 15-21 severe): 0 Source: Developed by Drs. Carrington Nielsen, Stephanie Villarreal, Stephen Sotelo and colleagues, with an educational augie from [employer]. Review of Systems Const Denies chills, Denies fatigue, Denies fever(s), Denies headache(s) and Denies weakness ENT Denies dizziness and Denies headache(s) Card Denies dyspnea Resp Denies cough, Denies dyspnea, Denies wheezing and Denies other (shortness of breath) Musc Denies numbness and Denies tingling Neuro Denies dizziness, Denies headache(s), Denies numbness, Denies tingling and Denies weakness Psych Denies anxiety and Denies depression Endo Denies fatigue Aller/Immun Denies wheezing Physical exam (Primary Care) Vital Signs: Last Vital Signs Temp 97.3 F 12/31/24 14:49 Pulse 87 12/31/24 14:49 Resp 12 12/31/24 14:49 BP 110/70 12/31/24 14:49 Pulse Ox 99 12/31/24 14:49 Oxygen Delivery Method Room Air 12/31/24 14:49 BMI result Body Mass Index 30.2 Tobacco/Smoking Status: Tobacco use Status Tobacco use date assessed 05/04/24 12/31/24 14:41 Patient Tobacco Use Status Never used Tobacco 12/31/24 14:41 e-Cigarette/Vaping Use Never Used 12/31/24 14:41 PHQ-9: PHQ-9 Score PHQ-9: Total score 0 12/31/24 15:05 Thrive Assessment: Date of Thrive Assessment Date Thrive assessed 12/24/24 12/31/24 14:41 Currently or been in a relationship where the following occur: I choose not to answer Const General: well developed; No acute distress Nutritional Appearance: well nourished Orientation/consciousness: patient oriented x3 HENMT Head: Yes normocephalic and Yes atraumatic Eyes General: appearance normal, both eyes and all related structures Pupils: Equal, round and reactive pupils present EOM: EOMs intact bilaterally Resp Effort & Inspection: normal respiratory effort Auscultation: clear to auscultation bilaterally Cardio Rate: regular rate Rhythm: regular rhythm Heart sounds: S1 normal heart sound present, S2 normal heart sound present, no gallops, no murmurs and no rubs Neuro General: patient oriented x3 and gait normal Cranial nerves: Yes Equal, round and reactive pupils present Psych Affect: normal affect Coding Level of Care Code Est Pt Level 3 (50813) Diagnoses Diabetes type 2, controlled E11.9 Essential hypertension I10 CAD (coronary artery disease) I25.10 Assessment & Plan Assessment & Plan (1) Diabetes type 2, controlled: Code(s): E11.9 - Type 2 diabetes mellitus without complications Category: Medical Plan: Patient?has?been?taking?his?medications?as?prescribed. However,?A1c?has?climbed?to?7.8%.??Goal?is?less?than?7.0%. He?also?notes?that?Trulicity?is?costing?him?about?400?dollars?a?month.??He?would ?like?to?discontinue?this?and?try?something?else. He?will?continue?metformin, glipizide?and?Farxiga?as?prescribed Trulicity Start?Lantus; will?follow-up?in?a?month Patient?w/ CAD, HTN & DM interested?in ?getting?his?blood?sugar?under?good?control?soon.??Referred?to?endocrinology. (2) Essential hypertension: Code(s): I10 - Essential (primary) hypertension Category: Medical Plan: Blood?pressure?is?well?controlled.??Goal?is?less?than?130/90 Continue?current?medication?regimen (3) CAD (coronary artery disease): Code(s): I25.10 - Atherosclerotic heart disease of [place] coronary artery without angina pectoris Category: Medical Plan: Stable Orders: Orders Microalbumin, Random (w Creat) Today I10 - Essential (primary) hypertension Basic Metabolic Panel Today I10 - Essential (primary) hypertension, Z00.00 - Encounter for general adult medical examination without abnormal findings Medications: New pen needle, diabetic To treat blood sugar, daily As directed, 90 days 50 ea 3RF E11.9 - Type 2 diabetes mellitus without complications insulin glargine (Lantus Solostar U-100 Insulin) 12 units (0.12 mL) subcut QPM 30 days 6 mL 3RF Discontinued dulaglutide Discontinued Reason: Doctor's Order 3 mg (0.5 mL) subcut QWEEK 84 days 6 mL 2RF
[2024-12-31 14:49] VITALS: BP 110/70; PULSE 87; RESP 12; TEMP 36.3; O2SAT 99; BMI 30.2
== END 2024-12-31 15:17 | disposition home or self-care (01) ==
LOC: HO.HMCFM 14:30
PROVIDERS: PCP Family Medicine; Visit Provider Family Medicine
DX: E11.9 Type 2 diabetes mellitus without complications (principal); I10 Essential (primary) hypertension; I25.10 Atherosclerotic heart disease of native coronary artery without angina pectoris

== ENCOUNTER → 2024-12-31 14:29 | Outpatient (BNVA) | payer MEDICARE, SELFPAY | PROVIDERS: PCP Family Medicine; Visit Provider Family Medicine | DX: E11.9 Type 2 diabetes mellitus without complications (principal); I10 Essential (primary) hypertension; I25.10 Atherosclerotic heart disease of native coronary artery without angina pectoris | CPT/HCPCS: 99212 ==

== ENCOUNTER 2025-02-04 09:40 | Outpatient (AMB) | payer MEDICARE, SELFPAY ==
--- NOTE | 2025-02-04 09:54 | A.OFFPC_ITS ---
Vital Signs 02/04/25 09:57 Height 5 ft 4 in Weight 178 lb 8 oz BMI 30.6 BP 106/60 Blood Pressure Location Lt brachial Position Sitting Respiration 16 Pulse 65 Pulse Source Pulse Oximeter Temp 98.1 F Temp Source Oral Pulse Oximetry (%) 98 Oxygen Delivery Method Room Air Intake Visit Reasons: f/u diabetes Intake Note: patient is scheduled for follow up dm Material Assistant Required: No Allergies No Known Allergies Allergy (Verified 02/04/25 09:56) Medication List - Last Reconciled 02/04/25 by Angel Gooden MD apixaban (Eliquis) 5 mg PO BID 90 days atorvastatin 80 mg PO BEDTIME 90 days carvedilol 12.5 mg PO BID 90 days dapagliflozin propanediol (Farxiga) 10 mg PO DAILY 90 days digoxin 125 mcg PO DAILY ezetimibe 10 mg PO DAILY furosemide 40 mg PO DAILY 90 days glipizide 10 mg PO BID 90 days insulin glargine (Lantus Solostar U-100 Insulin) 12 units (0.12 mL) subcut QPM 30 days losartan 50 mg PO DAILY 90 days metformin 500 mg PO BID 90 days pen needle, diabetic To treat blood sugar, daily As directed, 90 days Tobacco use date assessed: 05/04/24 Dental Screening Dental Screen Date: 05/04/24 HPI f/u diabetes HPI Details 79 y/o male presents to f/u diabetes. A1c 7.6%. He is on Farxiga 10mg, glipizide 10mg b.i.d, Lantus 12 units, metformin 500mg b.i.d. Blood pressure today 106/60, 65p. He is on losartan 50mg, carvedilol 12.5mg b.i.d. [facility] Medical History Afib History of colonic polyps [facility] current use of anticoagulant DVT (deep venous thrombosis) Osteoarthritis of right knee Hyperlipidemia CAD (coronary artery disease) Essential hypertension Diabetes type 2, controlled Surgical History Stented coronary artery Status post phlebectomy (~2019) History of cardioversion Hx of colonoscopy Family History Father No problems noted. Mother No problems noted. Social History Household Members: Spouse Housing: House Are you a primary care team coordinator scheduler to a significant other at home: No Do you presently have visiting nurse or other home services: No Alcohol intake: current Alcohol intake frequency: holidays/special occasions only Patient Tobacco Use Status: Never used Tobacco e-Cigarette/Vaping Use: Never Used Second Hand Smoke Exposure: No service: No Current occupational status: retired Current occupational exposures/hazards: No Cognitive needs: No Hearing needs: No Vision needs: Yes (Glasses) Questionnaire Thrive Questionnaire Date Thrive assessed: 12/24/24 I am a: Patient What is your living situation today?: I have a steady place to live Within the past 12 months, did the food you bought not last and you didn't have the money to get more?: Never true Within the past 12 months, did you worry whether your food would run out before you got money to buy more?: Never true Do you have trouble paying for medicines?: No Do you have trouble getting transportation to medical appointments?: Yes Do you have trouble paying your heating and electricity bill?: I choose not to answer this question Do you have trouble taking care of your child, family member or friend?: No Do you have trouble with day-to-day activities such as bathing, preparing meals, shopping, managing finances, etc.?: No Are you currently unemployed and looking for a job?: No Are you interested in more education?: No Please select the resources that you would like help with: None Currently or been in a relationship where the following occur: I choose not to answer THRIVE Score: 1 NE-7 AMB Questionnaire NE-7 Date NE - 7 assessed: 05/04/24 Source: Developed by Drs. Carrington Nielsen, Stephanie Villarreal, Stephen Sotelo and colleagues, with an educational augie from [employer]. Review of Systems Const Denies chills, Denies fatigue, Denies fever(s), Denies headache(s) and Denies weakness ENT Denies dizziness and Denies headache(s) Card Denies dyspnea Resp Denies cough, Denies dyspnea, Denies wheezing and Denies other (shortness of breath) Musc Denies numbness and Denies tingling Neuro Denies dizziness, Denies headache(s), Denies numbness, Denies tingling and Denies weakness Psych Denies anxiety and Denies depression Endo Denies fatigue Aller/Immun Denies wheezing Physical exam (Primary Care) Vital Signs: Last Vital Signs Temp 98.1 F 02/04/25 09:57 Pulse 65 02/04/25 09:57 Resp 16 02/04/25 09:57 BP 106/60 02/04/25 09:57 Pulse Ox 98 02/04/25 09:57 Oxygen Delivery Method Room Air 02/04/25 09:57 BMI result Body Mass Index 30.6 Tobacco/Smoking Status: Tobacco use Status Tobacco use date assessed 05/04/24 02/04/25 09:55 Patient Tobacco Use Status Never used Tobacco 02/04/25 09:55 e-Cigarette/Vaping Use Never Used 02/04/25 09:55 Thrive Assessment: Date of Thrive Assessment Date Thrive assessed 12/24/24 02/04/25 09:55 Currently or been in a relationship where the following occur: I choose not to answer Const General: well developed; No acute distress Nutritional Appearance: well nourished Orientation/consciousness: patient oriented x3 HENMT Head: Yes normocephalic and Yes atraumatic Eyes General: appearance normal, both eyes and all related structures Pupils: Equal, round and reactive pupils present EOM: EOMs intact bilaterally Resp Effort & Inspection: normal respiratory effort Auscultation: clear to auscultation bilaterally Cardio Rate: regular rate Rhythm: regular rhythm Heart sounds: S1 normal heart sound present, S2 normal heart sound present, no gallops, no murmurs and no rubs Neuro General: patient oriented x3 and gait normal Cranial nerves: Yes Equal, round and reactive pupils present Psych Affect: normal affect Coding Level of Care Code Est Pt Level 3 (98972) Diagnoses Diabetes type 2, controlled E11.9 Hypertension I10 Assessment & Plan Assessment & Plan (1) Diabetes type 2, controlled: Code(s): E11.9 - Type 2 diabetes mellitus without complications Category: Medical Plan: A1c?has?risen?to?7.6%.??Goal?is?less?than?7.0% Will?increase?Lantus?to?16?units?daily. Continue?your?other?diabetes?medications?as?prescribed (2) Hypertension: Code(s): I10 - Essential (primary) hypertension Category: Medical Plan: Blood?pressure?is?controlled.??Goal?is?less?than?130/80 Continue?current?medications Orders: Orders Prostate Specific Antigen Scr Today Z12.5 - Encounter for screening for malignant neoplasm of prostate Lipid Panel Today Z00.00 - Encounter for general adult medical examination without abnormal findings UA CC w/rflx Micro + Cult Today Z00.00 - Encounter for general adult medical examination without abnormal findings Comprehensive [place]. Panel Fast Today Z00.00 - Encounter for general adult medical examination without abnormal findings Complete Blood Count Auto Diff Today Z00.00 - Encounter for general adult medical examination without abnormal findings Microalbumin, Random (w Creat) Today I10 - Essential (primary) hypertension TSH reflex Free T4 Today Z00.00 - Encounter for general adult medical examination without abnormal findings Medications: Changed From insulin glargine (Lantus Solostar U-100 Insulin) 12 units (0.12 mL) subcut QPM 30 days 6 mL 3RF To insulin glargine (Lantus Solostar U-100 Insulin) 16 units (0.16 mL) subcut QPM 30 days 6 mL 3RF Refilled metformin 500 mg PO BID 90 days 180 tabs 3RF dapagliflozin propanediol (Farxiga) 10 mg PO DAILY 90 days 90 tabs 1RF
[2025-02-04 09:57] VITALS: BP 106/60; PULSE 65; RESP 16; TEMP 36.7; O2SAT 98; BMI 30.6
== END 2025-02-04 12:28 | disposition home or self-care (01) ==
LOC: HO.HMCFM 09:41
PROVIDERS: PCP Family Medicine; Visit Provider Family Medicine
DX: E11.9 Type 2 diabetes mellitus without complications (principal); I10 Essential (primary) hypertension

== ENCOUNTER → 2025-02-04 09:40 | Outpatient (BNVA) | payer MEDICARE, SELFPAY | PROVIDERS: PCP Family Medicine; Visit Provider Family Medicine | DX: E11.9 Type 2 diabetes mellitus without complications (principal); I10 Essential (primary) hypertension | CPT/HCPCS: 83036; 99212 ==

== ENCOUNTER 2025-04-24 08:26 | Outpatient (REF) | payer MEDICARE, SELFPAY ==
[2025-04-24 11:27] LABS: Appearance Urine Clear; Glucose Urine UA 250 mg/dL (Negative); PH 5.0 (5.0-9.0); Specific Gravity - Urine 1.010 (1.005-1.025); UMIC TRIGGER UA YES; UMIC TRIGGER UACC YES
[2025-04-24 11:33] LABS: MANUAL DIFF FLAG NO
[2025-04-24 11:41] LABS: Hematocrit 39.7 % (42.0-52.0); Hemoglobin 13.5 g/dl (14.0-18.0); Imm Gran Abs Auto 0.02 X10*3/uL (0.00-0.03); Imm Gran Pct Auto 0.3 % (0.0-0.4); Lymphocytes Absolute Auto 1.6 X10*3/uL (1.2-4.9); Mean Corpuscular HGB Conc 34.0 g/dl (31.0-36.0); Mean Corpuscular Hemoglobin 29.7 pg (27.0-33.0); Mean Corpuscular Volume 87.4 fL (80.0-98.0); NRBC Abs Auto 0.000 X10*3/uL (0.0-0.012); NRBC Pct Auto 0.0 /100WBC (0.0-0.2); Platelet Count 227 X10*3/uL (160-400); Red Blood Count 4.54 X10*6/uL (4.60-5.80); White Blood Count 7.0 X10*3/uL (4.8-10.8)
[2025-04-24 11:51] LABS: Alanine Aminotransferase 26 U/L (0-40); Albumin Level 4.2 g/dL (3.5-5.0); Alkaline Phosphatase 65 U/L (39-117); Anion Gap 12 (12-20); Aspartate Amino Transferase 28 U/L (5-37); Blood Urea Nitrogen 35 mg/dL (9-16); Calcium 8.9 mg/dL (8.4-10.2); Carbon Dioxide 23 mmol/L (22-29); Chloride 111 mmol/L (96-108); Cholesterol 94 mg/dL (<200); Estimated Glomerular Filt Rate 58; HDL Cholesterol 25 mg/dL (>40); Potassium 4.3 mmol/L (3.3-5.1); Sodium 142 mmol/L (135-145); Total Protein 6.5 g/dL (6.5-8.0); Triglycerides 90 mg/dL (<150)
[2025-04-24 11:52] LABS: UACC Culture Trigger YES
== END 2025-04-24 08:27 | disposition home or self-care (01) ==
LOC: HO.WFDLDS 08:26
PROVIDERS: Visit Provider Family Medicine
DX: Z00.00 Encounter for general adult medical examination without abnormal findings (principal); Z12.5 Encounter for screening for malignant neoplasm of prostate; I10 Essential (primary) hypertension; R82.90 Unspecified abnormal findings in urine
CPT/HCPCS: 36415; 80048; 80053; 80061; 81001; 82043; 82570; 84153; 84443; 85025; 87086; 87147

== ENCOUNTER 2025-04-30 11:41 | Outpatient (AMB) | payer MEDICARE, SELFPAY ==
--- NOTE | 2025-04-30 12:59 | A.OFFPC_ITS ---
Vital Signs 04/30/25 13:06 Height 5 ft 4 in Weight 175 lb 8 oz BMI 30.1 BP 120/60 Blood Pressure Location Lt brachial Position Sitting Respiration 14 Pulse 98 Pulse Source Pulse Oximeter Pulse Oximetry (%) 60 L Oxygen Delivery Method Room Air Intake Visit Reasons: Annual PE/ f/u for DM - see comments Intake Note: patient is scheduled for annual PE Estate Planning Paralegal Required: No Allergies No Known Allergies Allergy (Verified 02/04/25 09:56) Medication List - Last Reconciled 04/30/25 by Angel Gooden MD apixaban (Eliquis) 5 mg PO BID 90 days carvedilol 12.5 mg PO BID 90 days dapagliflozin propanediol (Farxiga) 10 mg PO DAILY 90 days digoxin 125 mcg PO DAILY ezetimibe 10 mg PO DAILY furosemide 40 mg PO DAILY 90 days glipizide 10 mg PO BID insulin glargine (Lantus Solostar U-100 Insulin) 18 units (0.18 mL) subcut QPM 30 days losartan 50 mg PO DAILY 90 days metformin 500 mg PO BID 90 days pen needle, diabetic To treat blood sugar, daily As directed, 90 days rosuvastatin 40 mg PO DAILY 90 days Tobacco use date assessed: 04/30/25 Fall risk assessment: No Falls in past year Last assessed Fall Risk: 04/30/25 Dental Screening Dental Screen Date: 05/04/24 Did you have a dental visit in the last 12 months?: No Did you have a dental problem in the last 6 months where you did not have access to dental care?: No Was dental information given to patient?: Patient has dentist HPI Annual PE/ f/u for DM - see comments HPI Details 79 y/o male presents for a CPE with f/u labs and health maint. Labs drawn 04/24/25. Reviewed labs with pt. Mild anemia. Triglycerides 90. TC 94. LDL 51. HDL low at 25. He is on artovastatin 80mg. PSA 0.13. Mild increase in creatinine. Hx of CAD, AFib. Blood pressure today 120/60, 98p. A1c today 04/30/25 is 7.0%. Has an appt. with his eye doctor in a couple months. He is on Farxiga, glipizide 10mg b.i.d, metformin 500mg b.i.d, Lantus 16 units. PFSH Medical History Afib History of colonic polyps medical terminologist current use of anticoagulant DVT (deep venous thrombosis) Osteoarthritis of right knee Hyperlipidemia CAD (coronary artery disease) Essential hypertension Diabetes type 2, controlled Surgical History Stented coronary artery Status post phlebectomy (~2019) History of cardioversion Hx of colonoscopy Family History Father No problems noted. Mother No problems noted. Social History Household Members: Spouse Housing: House Are you a primary rn coronary care unit to a significant other at home: No Do you presently have visiting nurse or other home services: No Alcohol intake: current Alcohol intake frequency: holidays/special occasions only Patient Tobacco Use Status: Never used Tobacco e-Cigarette/Vaping Use: Never Used Second Hand Smoke Exposure: No service: No Current occupational status: retired Current occupational exposures/hazards: No Cognitive needs: No Hearing needs: No Vision needs: Yes (Glasses) Questionnaire PHQ-9 Over the last 2 weeks, how often have you been bothered by any of the following problems? 1. Little interest or pleasure in doing things: not at all 2. Feeling down, depressed, or hopeless: several days 3. Trouble falling or staying asleep, or sleeping too much: not at all 4. Feeling tired or having little energy: not at all 5. Poor appetite or overeating: not at all 6. Feeling bad about yourself - or that you are a failure or have let yourself or your family down: not at all 7. Trouble concentrating on things, such as reading the newspaper or watching television: not at all 8. Moving or speaking so slowly that other people could have noticed. Or the opposite - being so fidgety or restless that you have been moving around a lot more than usual: not at all 9. Thoughts that you would be better off or of hurting yourself in some way: not at all Total score: 1 Depression Screening Interpretation: Negative Depression Screening Done: Yes 70034 - PHQ-9 Billing: Yes Source: Developed by Drs. Carrington Nielsen, Stephanie Villarreal, Stephen Sotelo and colleagues, with an educational augie from [employer]. Thrive Questionnaire Date Thrive assessed: 12/24/24 I am a: Patient What is your living situation today?: I have a steady place to live Within the past 12 months, did the food you bought not last and you didn't have the money to get more?: Never true Within the past 12 months, did you worry whether your food would run out before you got money to buy more?: Never true Do you have trouble paying for medicines?: No Do you have trouble getting transportation to medical appointments?: Yes Do you have trouble paying your heating and electricity bill?: I choose not to answer this question Do you have trouble taking care of your child, family member or friend?: No Do you have trouble with day-to-day activities such as bathing, preparing meals, shopping, managing finances, etc.?: No Are you currently unemployed and looking for a job?: No Are you interested in more education?: No Please select the resources that you would like help with: None Currently or been in a relationship where the following occur: I choose not to answer THRIVE Score: 1 AUDIT C Alcohol Use Questionnaire (AUDIT-C) 1. How often do you have a drink containing alcohol?: Never Total Score: 0 Score Reviewed/Action Taken: Yes NE-7 AMB Questionnaire NE-7 Date NE - 7 assessed: 05/04/24 Feeling nervous, anxious, or on edge: 0 = Not at all Worrying too much about different things: 0 = Not at all Trouble relaxin = Not at all Being so restless that it is hard to sit still: 0 = Not at all Becoming easily annoyed or irritable: 0 = Not at all Feeling afraid as if something awful might happen: 0 = Not at all Source: Developed by Drs. Carrington Nielsen, Stephanie Villarreal, Stephen Sotelo and colleagues, with an educational augie from [employer]. NE-7 Assessment Billing NE-7 Assessment Tool: NE-7 Assessment 69311 Review of Systems Const Denies chills, Denies fatigue, Denies fever(s), Denies headache(s) and Denies weakness Eyes Denies change in vision ENT Denies dizziness, Denies headache(s), Denies hearing loss, Denies nasal congestion, Denies sinus pain, Denies sinus pressure and Denies sore throat Card Denies chest pain, Denies lightheadedness, Denies dyspnea and Denies other (palpitations) Resp Denies cough, Denies dyspnea and Denies wheezing GI Denies abdominal pain, Denies melena, Denies hematochezia, Denies change in bowel habits, Denies dyspepsia and Denies nausea Denies hematuria and Denies dysuria Musc Denies abnormal gait, Denies myalgias, Denies arthralgias, Denies numbness and Denies tingling Skin/Breast Denies rash, Denies unusual bruising and Denies wounds Neuro Denies abnormal gait, Denies dizziness, Denies headache(s), Denies memory loss, Denies numbness, Denies Sensory deficit (Neuro), Denies tingling and Denies weakness Psych Denies anxiety, Denies depression and Denies memory loss Endo Denies cold intolerance, Denies fatigue, Denies heat intolerance, Denies polydipsia and Denies polyuria Rufus/Lymph Denies easy bleeding and Denies easy bruising Aller/Immun Denies wheezing Physical exam (Primary Care) Vital Signs: Last Vital Signs Pulse 98 04/30/25 13:06 Resp 14 04/30/25 13:06 BP 120/60 04/30/25 13:06 Pulse Ox 60 L 04/30/25 13:06 Oxygen Delivery Method Room Air 04/30/25 13:06 BMI result Body Mass Index 30.1 Tobacco/Smoking Status: Tobacco use Status Tobacco use date assessed 04/30/25 04/30/25 13:07 Patient Tobacco Use Status Never used Tobacco 04/30/25 13:01 e-Cigarette/Vaping Use Never Used 04/30/25 13:01 PHQ-9: PHQ-9 Score PHQ-9: Total score 1 04/30/25 13:07 Depression Screening Interpretation: Negative Thrive Assessment: Date of Thrive Assessment Date Thrive assessed 12/24/24 04/30/25 13:01 Currently or been in a relationship where the following occur: I choose not to answer Const General: no acute distress, well developed, alert and awake Nutritional Appearance: well nourished Orientation/consciousness: patient oriented x3 HENMT Head: Yes normocephalic and Yes atraumatic Ears: hearing grossly normal bilaterally and TM's normal bilaterally General nose exam: Normal external nose present and Normal nares present Mouth: Normal oral and palatal mucosa present and moist mucous membranes Teeth and gingiva: dentition normal Throat: Yes posterior oropharynx normal Eyes General: appearance normal, both eyes and all related structures Pupils: Equal, round and reactive pupils present and Pupil accommodation reflex normal EOM: EOMs intact bilaterally Neck Neck: Yes normal visual inspection, Yes no lymphadenopathy and Yes trachea midline Thyroid: Thyroid normal Carotids: no bruits Lymphatic: no lymphadenopathy noted Chest Chest palpation & inspection: normal inspection of the chest Resp Effort & Inspection: normal respiratory effort Auscultation: clear to auscultation bilaterally Cardio Rate: regular rate Rhythm: regular rhythm Heart sounds: S1 normal heart sound present, S2 normal heart sound present, no gallops, no murmurs and no rubs Bruits: no abdominal aortic bruits and no carotid bruits GI Palpation (GI): No Abdominal aortic bruit present, Soft to palpation, nontender, No hepatosplenomegaly present and No Rebound tenderness present Auscultation: normal bowel sounds General: Yes no CVA tenderness Back/Spine/Pelvis Back: no CVA tenderness Cervical Spine: cervical ROM normal and No Cervical spine tenderness Thoracic/Lumbar Spine: thoraco-lumbar ROM normal, No pain with thoraco-lumbar ROM, No thoracic spinal tenderness and No lumbar spinal tenderness Skin Lesions: no lesions Rashes: no rashes Trauma: no lacerations or abrasions Wounds: no wounds Nails: normal Neuro General: patient oriented x3 Cranial nerves: Yes Equal, round and reactive pupils present Cognition (Neuro): normal cognition Gait exam (Neuro): Normal gait present Motor exam (neuro): 5/5 motor strength present throughout Sensory Exam: No Sensory deficit (Neuro) Deep tendon reflexes (DTR's): Right patellar reflex intensity grade: 2+ and Left patellar reflex intensity grade: 2+ Extrem General: Yes normal to inspection and No edema Psych Appearance: grossly normal Affect: normal affect Attitude: cooperative Thought process: Normal thought process present Coding Level of Care Code Est Pt Prev Care >65y(75441) Diagnoses Adult general medical exam Z00.00 Essential hypertension I10 CAD (coronary artery disease) I25.10 Diabetes type 2, controlled E11.9 Chronic renal failure N18.9 Afib I48.91 Hyperlipidemia E78.5 Low HDL (under 40) E78.6 Screening for colon cancer Z12.11 Screening for prostate cancer Z12.5 Mild anemia D64.9 Additional Codes NE-7 Assessment Billing - NE-7 Assessment Tool: NE-7 Assessment 90790 ([id number]) PHQ-9 - 36456 - PHQ-9 Billing: Yes ([id number]) Assessment & Plan Assessment & Plan (1) Adult general medical exam: Code(s): Z00.00 - Encounter for general adult medical examination without abnormal findings Category: Medical Plan: 79-year-old male presents for complete physical exam Encouraged healthy diet with active lifestyle and plenty of exercise (2) Essential hypertension: Code(s): I10 - Essential (primary) hypertension Category: Medical Plan: Blood pressure is controlled. Goal is less than 130/80 Continue medication regimen (3) CAD (coronary artery disease): Code(s): I25.10 - Atherosclerotic heart disease of [place] coronary artery without angina pectoris Category: Medical Plan: History of coronary artery disease Lipids are controlled except HDL is too low. Currently on atorvastatin. Will try switching him to rosuvastatin Recheck lipid (4) Diabetes type 2, controlled: Code(s): E11.9 - Type 2 diabetes mellitus without complications Category: Medical Plan: A1c has improved and now at 7.0%. Patient brought in a log of his blood sugars and no low blood sugars Will have him bring up Lantus by 2 units. He will continue checking blood sugars and let me know if he has any problems. Continue working on diabetic diet He has an upcoming eye exam in the next couple of months. Up-to-date. (5) Chronic renal failure: Code(s): N18.9 - Chronic kidney disease, unspecified Category: Medical Plan: Mild increase in creatinine and decrease in GFR Increase hydration Will continue to monitor (6) Afib: Code(s): I48.91 - Unspecified atrial fibrillation Category: Medical Plan: Stable on Eliquis, digoxin, carvedilol Continue current medications Follow-up with Cardiology as recommended (7) Hyperlipidemia: Code(s): E78.5 - Hyperlipidemia, unspecified Category: Medical Plan: As above, HDL is too low (8) Low HDL (under 40): Code(s): E78.6 - Lipoprotein deficiency Category: Medical Plan: As above (9) Screening for colon cancer: Code(s): Z12.11 - Encounter for screening for malignant neoplasm of colon Category: Medical Plan: Patient says he had a colonoscopy about 5 years ago in [place]. He says he had 1 polyp He is uncertain of recommended follow-up Will refer to GI (10) Screening for prostate cancer: Code(s): Z12.5 - Encounter for screening for malignant neoplasm of prostate Category: Medical Plan: PSA is within normal range Will continue annual screening (11) Mild anemia: Code(s): D64.9 - Anemia, unspecified Category: Medical Plan: Mild anemia Will repeat with next lab draw Orders: Orders Complete Blood Count Auto Diff Today D64.9 - Anemia, unspecified, Z00.00 - Encounter for general adult medical examination without abnormal findings Comprehensive [employer]. Panel Fast Today I10 - Essential (primary) hypertension, Z00.00 - Encounter for general adult medical examination without abnormal findings Hemoglobin A1c Today E11.9 - Type 2 diabetes mellitus without complications, R73.01 - Impaired fasting glucose Microalbumin, Random (w Creat) Today I10 - Essential (primary) hypertension UA CC w/rflx Micro + Cult Today I10 - Essential (primary) hypertension, Z00.00 - Encounter for general adult medical examination without abnormal findings Lipid Panel Today I25.10 - Atherosclerotic heart disease of [place] coronary artery without angina pectoris, Z00.00 - Encounter for general adult medical examination without abnormal findings Referrals Gastroenterology Referral Z12.11 - Encounter for screening for malignant neoplasm of colon, Z86.010 - Personal history of colon polyps Medications: New rosuvastatin 40 mg PO DAILY 90 tabs 3RF 90 days Changed From insulin glargine (Lantus Solostar U-100 Insulin) 16 units (0.16 mL) subcut QPM 30 days 6 mL 3RF To insulin glargine (Lantus Solostar U-100 Insulin) 18 units (0.18 mL) subcut QPM 5.4 mL 3RF 30 days Discontinued atorvastatin Discontinued Reason: Doctor's Order 80 mg PO BEDTIME 90 days 90 tabs 3RF
[2025-04-30 13:06] VITALS: BP 120/60; PULSE 98; RESP 14; O2SAT 60; BMI 30.1
== END 2025-04-30 13:23 | disposition home or self-care (01) ==
LOC: HO.HMCFM 11:42
PROVIDERS: PCP Family Medicine; Visit Provider Family Medicine
DX: Z00.00 Encounter for general adult medical examination without abnormal findings (principal); I12.9 Hypertensive chronic kidney disease with stage 1 through stage 4 chronic kidney disease, or unspecified chronic kidney disease; E11.9 Type 2 diabetes mellitus without complications; I48.91 Unspecified atrial fibrillation; N18.9 Chronic kidney disease, unspecified; I25.10 Atherosclerotic heart disease of native coronary artery without angina pectoris; E78.5 Hyperlipidemia, unspecified; E78.6 Lipoprotein deficiency; Z12.11 Encounter for screening for malignant neoplasm of colon; Z12.5 Encounter for screening for malignant neoplasm of prostate; D64.9 Anemia, unspecified

== ENCOUNTER → 2025-04-30 11:41 | Outpatient (BNVA) | payer MEDICARE, SELFPAY | PROVIDERS: PCP Family Medicine; Visit Provider Family Medicine | DX: Z00.00 Encounter for general adult medical examination without abnormal findings (principal); I25.10 Atherosclerotic heart disease of native coronary artery without angina pectoris; I12.9 Hypertensive chronic kidney disease with stage 1 through stage 4 chronic kidney disease, or unspecified chronic kidney disease; E11.22 Type 2 diabetes mellitus with diabetic chronic kidney disease; N18.9 Chronic kidney disease, unspecified; I48.91 Unspecified atrial fibrillation; E78.5 Hyperlipidemia, unspecified; E78.6 Lipoprotein deficiency; D64.9 Anemia, unspecified | CPT/HCPCS: 96127; 99397 ==

== ENCOUNTER → 2025-05-21 08:27 | Outpatient (REF) | payer MEDICARE, SELFPAY ==
--- NOTE | 2025-05-21 08:30 | CA_ITS ---
Transthoracic Echocardiogram Patient (Last, First, Middle): Km Estevez, Gender: Male Date of : 1945 Age: 79 Procedure Date: 05/21/2025 Procedure Type: Transthoracic Echocardiogram Location: OP Height: 162.56 cm Weight: 79.38 kg BSA: 1.85 m2 Heart Rate: bpm BP: 120 / 60 mmHg Stock Or Delivery Clerk: LOULOU Referring MD: Slim Snow MD Symptoms: I50.9 - Heart failure, unspecified Study Quality: Adequate with contrast ECG Rhythm: Atrial Fibrillation Conclusions: - The left ventricular systolic function is mildly decreased. The calculated ejection fraction is 53% by biplane method. - The apex segment is akinetic. - The basal inferolateral segment is hypokinetic. - The left atrium is moderately dilated. - No obvious valvular pathology seen on this study. Findings Procedure Information Contrast agent, definity, is being given per protocol without apparent complications. Left Ventricle Normal left ventricular cavity size. There is normal left ventricular wall thickness. The left ventricular systolic function is mildly decreased. The calculated ejection fraction is 53% by biplane method. There is evidence of regional wall motion abnormalities. Diastolic function is indeterminate on the basis of available data. Wall Motion Rest Echo Findings The basal inferolateral segment is hypokinetic. The apex segment is akinetic. Right Ventricle Normal right ventricular cavity size and systolic function. Atria The left atrium is moderately dilated. The right atrium is normal in size. Aortic Valve There is a normal trileaflet aortic valve. There is no aortic valve stenosis. Trace to mild aortic regurgitation. Mitral Valve The mitral valve appears normal. There is trace mitral valve regurgitation. There is trace mitral valve stenosis. Pulmonic Valve The pulmonic valve is likely normal. Tricuspid Valve There is mild tricuspid valve regurgitation. Borderline RVSP. Great Vessels The asc aorta is normal in size. Venous The inferior vena cava is normal in size and collapses greater than 50% with inspiration. Pericardium/Pleural There is no evidence of pericardial effusion. Prior Study Comparison No significant change compared to prior study dated: 04/23/2024. Recommendations, Care & Conclusions No obvious valvular pathology seen on this study. Measurements 2D Linear Measurements IVSd: 0.99 0.6-0.9/0.6-1.0 cm LVIDd: 4.83 3.9-5.3/4.2-5.9 cm LVIDd Index: 2.61 2.4-3.2/2.2-3.1 cm/m2 LVIDs: 2.91 2.0-3.6 cm LVPWd: 0.95 0.7-1.1 cm LA Diam: 4.30 2.7-3.8/3.0-4.0 cm LAIDs Index: 2.32 1.5-2.3 cm/m2 LV Mass: 205.37 67-162/88-224 g LV Mass Index: 111.01 43-95/49-115 g/m2 LVOT Diam: 2.00 3.0+(-)1.3 cm 2D Systolic Function EF 4C: 56.50 >55% EF 2C: 50.90 >55% EF BiP: 52.50 >55% Mitral Valve MV Pk E: 0.74 MV Decel Time: 211.00 E'Lateral: 9.98 E'Medial: 8.25 E/E' Med: 8.90 E/E' Lat: 7.40 PHT: 62.00 MVA PHT: 3.55 Decel [place]: 3.56 Aortic Valve AoV Pk Félix: 1.05 AoV Mn Félix: 0.69 AoV VTI: 0.22 AoV Pk Grad: 4.00 Aov Mn Grad: 2.00 ABIGAIL Cont.VTI: 2.17 LVOT LVOT Pk Félix: 0.73 LVOT Mn Félix: 0.45 LVOT VTI: 0.15 LVOT Pk Grad: 2.00 LVOT Mn Grad: 1.00 LVOT Diam: 2.00 LVOT Area: 3.14 Diastolic Function MV Pk E: 0.74 E'Medial: 8.25 E/E' Med: 8.90 E' Laterial: 9.98 E/E' Lat: 7.40 Right Ventricle TAPSE (mm): 19.70 TVS' Félix: 10.10 Tricuspid Valve TR Pk Félix: 2.84 TR Pk Grad: 32.00 RA Press: 8.00 RVSP: 40.00 Great Vessels Aorta Sinus of Valsalva: 3.19 2.0-3.[address] [place]: 2.38 1.7-3.4 cm Ao Asc: 3.50 2.1-3.4 cm Updated in Other Vendor System with Status of Final Tk Zuniga MD electronically signed on 05/23/2025 2:26:27 PM with status of Final
== END ==
LOC: HO.CARD 08:27
PROVIDERS: PCP Family Medicine; Visit Provider Internal Medicine Cardiovascular Disease
DX: I50.9 Heart failure, unspecified (principal)
CPT/HCPCS: 93306; Q9957

== ENCOUNTER → 2025-05-21 08:30 | Outpatient (BNV) | payer MEDICARE, SELFPAY | PROVIDERS: PCP Family Medicine; Visit Provider Internal Medicine | DX: I35.1 Nonrheumatic aortic (valve) insufficiency (principal); I36.1 Nonrheumatic tricuspid (valve) insufficiency; I51.89 Other ill-defined heart diseases; I51.7 Cardiomegaly | CPT/HCPCS: 93306 ==

== ENCOUNTER 2025-06-18 08:38 | Outpatient (REF) | payer MEDICARE, SELFPAY ==
[2025-06-18 10:32] LABS: Digoxin 0.8 ng/mL (0.8-2.0)
[2025-06-18 10:33] LABS: Anion Gap 14 (12-20); Blood Urea Nitrogen 38 mg/dL (9-16); Calcium 9.6 mg/dL (8.4-10.2); Carbon Dioxide 22 mmol/L (22-29); Chloride 111 mmol/L (96-108); Estimated Glomerular Filt Rate 48; Potassium 4.7 mmol/L (3.3-5.1); Sodium 142 mmol/L (135-145)
== END 2025-06-18 08:39 | disposition home or self-care (01) ==
LOC: HO.LAB 08:38
PROVIDERS: PCP Family Medicine; Visit Provider Internal Medicine Cardiovascular Disease
DX: I48.91 Unspecified atrial fibrillation (principal); I25.10 Atherosclerotic heart disease of native coronary artery without angina pectoris; I11.0 Hypertensive heart disease with heart failure; I50.30 Unspecified diastolic (congestive) heart failure; R06.09 Other forms of dyspnea; R60.0 Localized edema; Z95.5 Presence of coronary angioplasty implant and graft; Z79.01 Long term (current) use of anticoagulants
CPT/HCPCS: 36415; 80048; 80162; 93005; 99212

== ENCOUNTER 2025-06-18 08:38 | Outpatient (AMB) | payer MEDICARE, SELFPAY ==
[2025-06-18 08:53] VITALS: BP 110/60; PULSE 70; BMI 29.9
--- NOTE | 2025-06-18 08:53 | A.OFFVIS_ITS ---
Vital Signs 06/18/25 08:53 Height 5 ft 4 in Weight 174 lb 2.643 oz BMI 29.9 BP 110/60 Blood Pressure Location Lt brachial Position Sitting Pulse 70 Pulse Source Monitor Intake Visit Reasons: follow up/echo/labs Allergies No Known Allergies Allergy (Verified 02/04/25 09:56) Medication List - Last Reconciled 06/18/25 by Slim Snow MD apixaban (Eliquis) 5 mg PO BID 90 days carvedilol 12.5 mg PO BID 90 days dapagliflozin propanediol (Farxiga) 10 mg PO DAILY 90 days digoxin 125 mcg PO DAILY ezetimibe 10 mg PO DAILY furosemide 40 mg PO DAILY 90 days glipizide 10 mg PO BID insulin glargine (Lantus Solostar U-100 Insulin) 18 units (0.18 mL) subcut QPM 30 days losartan 50 mg PO DAILY 90 days metformin 500 mg PO BID 90 days pen needle, diabetic To treat blood sugar, daily As directed, 90 days rosuvastatin 40 mg PO DAILY 90 days HPI Comments Details: Km comes for follow-up. He has been doing very well from cardiac perspective. He said he has remains functional and still plays golf and is able to walk up and down the green without having much issues. He has no significant shortness of breath. He denies any orthopnea, PND, leg edema. Takes all his medications. Denies any prolonged palpitation irregular heartbeat. Recent lipid panel showed excellent LDL at 51 mg/dL. Denies any lightheadedness, syncope. No exertional chest pain. [facility] Medical History (Updated 06/18/25 @ 09:23 by Slim Snow MD) Afib History of colonic polyps intermediate project manager current use of anticoagulant DVT (deep venous thrombosis) Osteoarthritis of right knee Hyperlipidemia CAD (coronary artery disease) Essential hypertension Diabetes type 2, controlled Surgical History Stented coronary artery Status post phlebectomy (~2019) History of cardioversion Hx of colonoscopy Family History Father No problems noted. Mother No problems noted. Social History Household Members: Spouse Housing: House Are you a primary childbirth and infant care teacher to a significant other at home: No Do you presently have visiting nurse or other home services: No Alcohol intake: current Alcohol intake frequency: holidays/special occasions only Patient Tobacco Use Status: Never used Tobacco e-Cigarette/Vaping Use: Never Used Second Hand Smoke Exposure: No service: No Current occupational status: retired Current occupational exposures/hazards: No Cognitive needs: No Hearing needs: No Vision needs: Yes (Glasses) Review of Systems Const Reports no additional complaints and Denies weakness ENT Reports no additional complaints and Denies dizziness Card Reports no additional complaints, Denies chest pain, Denies chest pain with activity, Denies syncope, Denies rapid heart rate, Denies pedal edema, Denies edema, Denies leg edema, Denies lightheadedness, Denies palpitations, Denies dyspnea, Denies dyspnea on exertion and Denies orthopnea Resp Denies cough, Denies dyspnea and Denies dyspnea on exertion GI Denies hematochezia and Denies change in stool character Musc Denies abnormal gait, Denies muscle cramps, Denies muscle weakness, Denies numbness, Denies radiating pain into limb and Denies tingling Neuro Denies abnormal gait, Denies dizziness, Denies syncope, Denies numbness, Denies tingling and Denies weakness Endo Denies palpitations Physical Exam Vital Signs: Last Vital Signs Pulse 70 06/18/25 08:53 BP 110/60 06/18/25 08:53 BMI result Body Mass Index 29.9 Const General: cooperative, comfortable, no acute distress, alert and awake Nutritional Appearance: obese Orientation/consciousness: patient oriented x3 Limitations: no limitations Neck Neck: Yes trachea midline, Yes supple and Yes no JVD Resp Effort & Inspection: normal respiratory effort Auscultation: clear to auscultation bilaterally Cardio Jugular venous distension: no JVD Rate: regular rate Rhythm: abnormal rhythm irregularly irregular Heart sounds: S1 normal heart sound present, S2 normal heart sound present, no click, no gallops and no murmurs GI Inspection: Yes obesity Auscultation: normal bowel sounds Skin General skin exam: no rashes or lesions noted Neuro General: patient oriented x3 and no focal motor deficits Extrem General: Yes no clubbing, cyanosis or edema Office Procedures EKG Details: EKGs shows atrial fibrillation with slow ventricular response with low-voltage QRS with poor R-wave [place] [id number], Complete Assessment & Plan Assessment & Plan (1) Afib: Code(s): I48.91 - Unspecified atrial fibrillation Category: Medical Plan: Chronic rate control atrial fibrillation without any significant worsening symptoms at this point time. Has failed rhythm control approach. At this point time has done well and will continue rate control approach. Digoxin assay should be performed every 6 months. Continue full oral anticoagulation, currently on Eliquis 5 mg b.i.d. and should perform renal function test every 6 months. Recent renal function test within normal limits. Continue carvedilol and digoxin. (2) CAD (coronary artery disease): Code(s): I25.10 - Atherosclerotic heart disease of [place] coronary artery without angina pectoris Category: Medical Plan: CAD with prior drug-eluting stent to LAD with significant improvement in his symptoms with exertional shortness of breath being his symptoms of angina. At this point time will continue with aggressive medical therapy. LDL is well optimized on current high-intensity statin ezetimibe therapy. Continue aggressive diabetes management goal hemoglobin A1c less than 7%. Blood pressure is currently well optimized. Continue the same. (3) Congestive heart failure: Code(s): I50.9 - Heart failure, unspecified Category: Medical Plan: Heart failure preserved ejection fraction with low normal LV ejection fraction. Continue current medical therapy and neurohormonal modulation with losartan as well as carvedilol therapy. Continue aggressive rate control approach as above. Continue Farxiga therapy. Currently on Lasix 40 mg daily. Daily weight monitoring avoidance salt loading was discussed importance of regular physical activity and weight loss was discussed. He understands and agrees. Additional diuretics as need be. Follow up in the clinic in 1 year's time after an echocardiogram. Thank you for allowing me to partake in his care Orders: Orders Basic Metabolic Panel Today I48.91 - Unspecified atrial fibrillation Digoxin Today I48.91 - Unspecified atrial fibrillation Coding Level of Care Code Est Pt Level 4 (79138) Complex EM visit Add On G2211 Diagnoses Afib I48.91 CAD (coronary artery disease) I25.10 Congestive heart failure I50.9 CPT Codes EKG - CPT: 59981-[id number], Complete ([id number])
== END 2025-06-18 09:11 | disposition home or self-care (01) ==
LOC: HO.HCS 08:39
PROVIDERS: PCP Family Medicine; Visit Provider Internal Medicine Cardiovascular Disease
DX: I48.91 Unspecified atrial fibrillation (principal); I25.10 Atherosclerotic heart disease of native coronary artery without angina pectoris; I50.9 Heart failure, unspecified
CPT/HCPCS: 93010; 99214; G2211

== ENCOUNTER 2025-07-25 09:15 | Outpatient (REF) | payer MEDICARE, SELFPAY ==
[2025-07-25 11:32] LABS: Appearance Urine Clear; Glucose Urine UA 500 mg/dL (Negative); PH 6.0 (5.0-9.0); Specific Gravity - Urine 1.010 (1.005-1.025); UMIC TRIGGER UA YES; UMIC TRIGGER UACC YES
[2025-07-25 11:36] LABS: MANUAL DIFF FLAG NO
[2025-07-25 11:45] LABS: Hematocrit 39.9 % (42.0-52.0); Hemoglobin 13.1 g/dl (14.0-18.0); Imm Gran Abs Auto 0.02 X10*3/uL (0.00-0.03); Imm Gran Pct Auto 0.3 % (0.0-0.4); Lymphocytes Absolute Auto 1.4 X10*3/uL (1.2-4.9); Mean Corpuscular HGB Conc 32.8 g/dl (31.0-36.0); Mean Corpuscular Hemoglobin 29.3 pg (27.0-33.0); Mean Corpuscular Volume 89.3 fL (80.0-98.0); NRBC Abs Auto 0.000 X10*3/uL (0.0-0.012); NRBC Pct Auto 0.0 /100WBC (0.0-0.2); Platelet Count 216 X10*3/uL (160-400); Red Blood Count 4.47 X10*6/uL (4.60-5.80); White Blood Count 6.8 X10*3/uL (4.8-10.8)
[2025-07-25 11:45] LABS: UACC Culture Trigger YES
[2025-07-25 11:54] LABS: Alanine Aminotransferase 22 U/L (0-40); Albumin Level 4.3 g/dL (3.5-5.0); Alkaline Phosphatase 66 U/L (39-117); Anion Gap 13 (12-20); Aspartate Amino Transferase 27 U/L (5-37); Blood Urea Nitrogen 36 mg/dL (9-16); Calcium 9.5 mg/dL (8.4-10.2); Carbon Dioxide 26 mmol/L (22-29); Chloride 109 mmol/L (96-108); Cholesterol 74 mg/dL (<200); Estimated Glomerular Filt Rate 53; HDL Cholesterol 25 mg/dL (>40); Potassium 5.0 mmol/L (3.3-5.1); Sodium 143 mmol/L (135-145); Total Protein 6.8 g/dL (6.5-8.0); Triglycerides 80 mg/dL (<150)
[2025-07-25 12:19] LABS: Microalbum/Creatinine Ratio Ur 70.3 ug/mg cr (<30)
== END 2025-07-25 09:16 | disposition home or self-care (01) ==
LOC: HO.WFDLDS 09:15
PROVIDERS: Visit Provider Family Medicine
DX: Z00.00 Encounter for general adult medical examination without abnormal findings (principal); E11.9 Type 2 diabetes mellitus without complications; I10 Essential (primary) hypertension; I25.10 Atherosclerotic heart disease of native coronary artery without angina pectoris; D64.9 Anemia, unspecified
CPT/HCPCS: 36415; 80053; 80061; 81001; 82043; 82570; 83036; 85025; 87086

== ENCOUNTER 2025-08-01 08:38 | Outpatient (AMB) | payer MEDICARE, SELFPAY ==
--- NOTE | 2025-08-01 08:39 | MHC.PC.OV ---
Vital Signs 08/01/25 08:42 Height 5 ft 4 in Weight 177 lb 4 oz BMI 30.4 BP 110/62 Blood Pressure Location Rt brachial Position Sitting Respiration 14 Pulse 62 Pulse Source Pulse Oximeter Temp 97.5 F Temp Source Temporal Artery Scan Pulse Oximetry (%) 97 Oxygen Delivery Method Room Air Intake Visit Reasons: f/u diabetes, HTN Intake Note: Km presents in the office today for a follow up to diabetes and hypertension. Allergies No Known Allergies Allergy (Verified 08/01/25 08:41) Tobacco use date assessed: 08/01/25 Fall risk assessment: No Falls in past year Last assessed Fall Risk: 08/01/25 Dental Screening Dental Screen Date: 08/01/25 Did you have a dental visit in the last 12 months?: No Did you have a dental problem in the last 6 months where you did not have access to dental care?: No Was dental information given to patient?: Patient declined HPI f/u diabetes, HTN HPI Details 80 y/o male presents to f/u diabetes, HTN. BP today 110/62, 62p. He is on losartan mg, carvedilol 12.5mg b.i. Labs drawn 07/25/25. Reviewed labs with pt. Creatinine level improved from 1.42 to 1.30. A1c 6.7%. Triglycerides 80. TC 74. LDL 33. HDL low at 25. HPI Comments History of Present Illness Details Documentation assistance for Angel Gooden MD, was provided by [place],? Survey Technologist on 08/01/2025 at 8:56 AM EST. I, Dr. Gooden, have read, observed, and verified documentation. [facility] Medical History (Updated 08/01/25 @ 09:06 by Angel Gooden MD) Afib History of colonic polyps half-way current use of anticoagulant DVT (deep venous thrombosis) Osteoarthritis of right knee Hyperlipidemia CAD (coronary artery disease) Essential hypertension Diabetes type 2, controlled Surgical History Stented coronary artery Status post phlebectomy (~2019) History of cardioversion Hx of colonoscopy Family History Father No problems noted. Mother No problems noted. Social History Household Members: Spouse Housing: House Are you a primary senior caregiver to a significant other at home: No Do you presently have visiting nurse or other home services: No Alcohol intake: current Alcohol intake frequency: holidays/special occasions only Patient Tobacco Use Status: Never used Tobacco e-Cigarette/Vaping Use: Never Used Second Hand Smoke Exposure: No service: No Current occupational status: retired Current occupational exposures/hazards: No Cognitive needs: No Hearing needs: No Vision needs: Yes (Glasses) Questionnaire Thrive Questionnaire Date Thrive assessed: 12/24/24 I am a: Patient What is your living situation today?: I have a steady place to live Within the past 12 months, did the food you bought not last and you didn't have the money to get more?: Never true Within the past 12 months, did you worry whether your food would run out before you got money to buy more?: Never true Do you have trouble paying for medicines?: No Do you have trouble getting transportation to medical appointments?: Yes Do you have trouble paying your heating and electricity bill?: I choose not to answer this question Do you have trouble taking care of your child, family member or friend?: No Do you have trouble with day-to-day activities such as bathing, preparing meals, shopping, managing finances, etc.?: No Are you currently unemployed and looking for a job?: No Are you interested in more education?: No Please select the resources that you would like help with: None Currently or been in a relationship where the following occur: I choose not to answer THRIVE Score: 1 NE-7 AMB Questionnaire NE-7 Date NE - 7 assessed: 05/04/24 Source: Developed by Drs. Carrington Nielsen, Stephanie Villarreal, Stephen Sotelo and colleagues, with an educational augie from [employer]. Review of Systems Const Denies chills, Denies fatigue, Denies fever(s), Denies headache(s) and Denies weakness ENT Denies dizziness and Denies headache(s) Card Denies dyspnea Resp Denies cough, Denies dyspnea, Denies wheezing and Denies other (shortness of breath) Musc Denies numbness and Denies tingling Neuro Denies dizziness, Denies headache(s), Denies numbness, Denies tingling and Denies weakness Psych Denies anxiety and Denies depression Endo Denies fatigue Aller/Immun Denies wheezing Physical exam (Primary Care) Vital Signs: Last Vital Signs Temp 97.5 F 08/01/25 08:42 Pulse 62 08/01/25 08:42 Resp 14 08/01/25 08:42 BP 110/62 08/01/25 08:42 Pulse Ox 97 08/01/25 08:42 Oxygen Delivery Method Room Air 08/01/25 08:42 BMI result Body Mass Index 30.4 Tobacco/Smoking Status: Tobacco use Status Tobacco use date assessed 08/01/25 08/01/25 08:44 Patient Tobacco Use Status Never used Tobacco 08/01/25 08:44 e-Cigarette/Vaping Use Never Used 08/01/25 08:44 Thrive Assessment: Date of Thrive Assessment Date Thrive assessed 12/24/24 08/01/25 08:44 Currently or been in a relationship where the following occur: I choose not to answer Const General: well developed; No acute distress Nutritional Appearance: well nourished Orientation/consciousness: patient oriented x3 HENMT Head: Yes normocephalic and Yes atraumatic Eyes General: appearance normal, both eyes and all related structures Pupils: Equal, round and reactive pupils present EOM: EOMs intact bilaterally Resp Effort & Inspection: normal respiratory effort Neuro General: patient oriented x3 and gait normal Cranial nerves: Yes Equal, round and reactive pupils present Psych Affect: normal affect Coding Level of Care Code Est Pt Level 4 (33824) Diagnoses Essential hypertension I10 CAD (coronary artery disease) I25.10 Hyperlipidemia E78.5 Diabetes type 2, controlled E11.9 CKD (chronic kidney disease) N18.9 Assessment & Plan Assessment & Plan (1) Essential hypertension: Code(s): I10 - Essential (primary) hypertension Category: Medical Plan: Blood pressure is well controlled. Goal is less than 130/80 Continue current medication (2) CAD (coronary artery disease): Code(s): I25.10 - Atherosclerotic heart disease of [place] coronary artery without angina pectoris Category: Medical Plan: Blood pressure, diabetes and cholesterol are controlled. Working on HDL cholesterol-see below Also on Farxiga Follow-up with Cardiology as recommended (3) Hyperlipidemia: Code(s): E78.5 - Hyperlipidemia, unspecified Category: Medical Plan: On rosuvastatin HDL is low but his other lipids are well controlled. Continue exercise Will try to increase [place] 3 fatty acids in his diet We can follow-up at a subsequent visit (4) Diabetes type 2, controlled: Code(s): E11.9 - Type 2 diabetes mellitus without complications Category: Medical Plan: A1c improved from 7.0% to 6.7% with increase in Lantus from 16 units daily to 18 units daily. Goal is less than 7% Continue current medications Continue diabetic diet Continue exercise Encouraged some weight loss with decreased portion sizes Eye exam in June shows no diabetic retinopathy. UTD (5) CKD (chronic kidney disease): Code(s): N18.9 - Chronic kidney disease, unspecified Category: Medical Plan: Creatinine level has improved Encouraged increased hydration and patient agrees Medications: Refilled dapagliflozin propanediol (Farxiga) 10 mg PO DAILY 90 tabs 1RF 90 days
[2025-08-01 08:42] VITALS: BP 110/62; PULSE 62; RESP 14; TEMP 36.4; O2SAT 97; BMI 30.4
== END 2025-08-01 09:03 | disposition home or self-care (01) ==
LOC: HO.HMCFM 08:38
PROVIDERS: PCP Family Medicine; Visit Provider Family Medicine
DX: I12.9 Hypertensive chronic kidney disease with stage 1 through stage 4 chronic kidney disease, or unspecified chronic kidney disease (principal); I25.10 Atherosclerotic heart disease of native coronary artery without angina pectoris; E78.5 Hyperlipidemia, unspecified; E11.9 Type 2 diabetes mellitus without complications; N18.9 Chronic kidney disease, unspecified

== ENCOUNTER → 2025-08-01 08:38 | Outpatient (BNVA) | payer MEDICARE, SELFPAY | PROVIDERS: PCP Family Medicine; Visit Provider Family Medicine | DX: E11.22 Type 2 diabetes mellitus with diabetic chronic kidney disease (principal); I12.9 Hypertensive chronic kidney disease with stage 1 through stage 4 chronic kidney disease, or unspecified chronic kidney disease; I25.10 Atherosclerotic heart disease of native coronary artery without angina pectoris; E78.5 Hyperlipidemia, unspecified; N18.9 Chronic kidney disease, unspecified | CPT/HCPCS: 99212 ==